=== PATIENT | male | born 1935 | race Caucasian/White ===

== ENCOUNTER 2021-10-26 09:23 | Observation (INO) ==
--- NOTE | 2021-10-26 09:38 | Emergency Department Note ---
Impression & Plan Acute GI bleeding, Anemia, Elevated troponin, DOLORES (acute kidney injury) ED Provider Note NAME: KULDIP ANSARI AGE: 86 SEX: M : 1935 ARRIVES VIA: Walk-In INFORMANT: Patient ED PROVIDER(S): Mik Muñoz DO CHIEF COMPLAINT: low HGB HPI: Patient is an 86-year-old male with past medical history of hypertension, CKD, low iron that presents to the ER for low hemoglobin referred by his PCP. He had an iron infusion last week. He has been feeling weak and rundown for the past several days. He denies any headache or change in vision. Denies any belly pain, nausea, vomiting, or diarrhea. No dysuria, urgency, or frequency. No other exacerbating or remitting factors. ROS: See above HPI for pertinent positives & negatives. A total of 10 systems reviewed and were otherwise negative. PAST MEDICAL HISTORY:See Below PAST SURGICAL HISTORY:See Below FAMILY HISTORY:See Below SOCIAL HISTORY:See Below HOME MEDICATIONS:See Below ALLERGIES:See Below VITALS:See Below PHYSICAL EXAMINATION: GENERAL: Sitting up in bed, alert, well appearing, well nourished, no distress, non-toxic EYE EXAM: normal conjunctiva. OROPHARYNX: no exudate, no erythema, lips, buccal mucosa, and tongue normal and mucous membranes are moist NECK: supple, no nuchal rigidity, no adenopathy, non-tender LUNGS: Clear to auscultation. Normal chest wall mechanics HEART: no murmurs, S1 normal and S2 normal ABDOMEN: abdomen soft, non-tender, normo-active bowel sounds, no masses, no r ebound or guarding. RECTAL: hem + dark stool UPPER EXTREMITIES: upper extremities are grossly normal. LOWER EXTREMITIES: No pitting edema. NEURO EXAM: Normal sensorium, cranial nerves II-XII grossly intact, normal speech, no gross weakness of arms, no gross weakness of legs. MEDICAL DECISION MAKING: Patient is an 86-year-old male who presents the ER for dark tarry stools. Rectal heme positive dark stool. Hemoglobin at 6 down from baseline of 10 last week. BMP with a significantly elevated BUN. Creatinine at 5.5 up from a baseline of what appears to be 4.3-4.5. LFTs bilirubin was unremarkable. Troponin was elevated. Rectal heme positive performed by myself at bedside. No belly pain. Consented at bedside for blood, typed and crossed and ordered 2 un its PRBCs while in the ER. No blood thinners at this time was admitted to the hospital for further work-up. Discussed with Graciela lehman for further evaluation. Triage Nursing notes reviewed. Limited review of prior medical records performed Vital Signs: reviewed and remarkable for no significant abnormalities Differential diagnosis: Infection, dehydration, metabolic abnormality, hypo/hyperglycemia, electrolyte disturbance, anemia, hypoxia, cardiac sources, intracerebral event, toxicologic, neurologic, as well as other pathologies. ER treatment provided: See below Diagnostics interpreted by me: ECG: Sinus rhythm rate of 70 Left axis No PVCs QTC 464 Cardiac Monitoring: An order was placed for continuous cardiac monitoring. The monitor shows a rate of 72 with sinus rhythm. Laboratory studies: As stated above and show below. Imaging studies: See below Consultation(s): Discussed with Graciela lehman for further evaluation Procedures: none Critical Care: I have personally spent 33 minutes of critical care time in the direct management of this patient. This includes bedside care, interpretation of diag nostic studies, and testing, discussion with consultants, patient, and family members, and other required patient management activities. This 33 minutes is in excess of all separately billable procedures. Past Med/Surg History Medical History BPH (benign prostatic hyperplasia) Chronic anemia Chronic diastolic heart failure due to valvular disease CKD (chronic kidney disease), stage V HTN (hypertension) Moderate aortic valve regurgitation Severe aortic valve stenosis Surgical History H/O sinus surgery History of carpal tunnel surgery History of cataract surgery History of cholecystectomy History of nasal surgery History of tonsillectomy and adenoidectomy Family History Brother Heart disorder Social History (Updated 10/26/21 @ 12:52 by DARLENE Majano) Smoking Status: Former smoker Hx Alcohol Use: No Preferred Language: Yakut Feels Safe at Home: Yes Allergies Allergies Allergy/AdvReac Type Severity Reaction Status Date / Time No Known Allergies Allergy Unknown Verified 06/02/06 16:47 Home Meds Home Medications Medication Instructions Recorded Confirmed acetaminophen 500 mg capsule 500 mg PO TID PRN Pain 10/26/21 10/26/21 alprazolam 1 mg tablet 1 mg PO BID 10/26/21 10/26/21 amlodipine 10 mg tablet (Norvasc) 10 mg PO DAILY 10/26/21 10/26/21 ascorbic acid (vitamin C) 1,000 mg 1 g PO DAILY 10/26/21 10/26/21 tablet (Vitamin C) aspirin 81 mg tablet,delayed 81 mg PO DAILY 10/26/21 10/26/21 release buspirone 15 mg tablet 22.5 mg PO BID 10/26/21 10/26/21 cholecalciferol (vitamin D3) 25 25 mcg PO DAILY 10/26/21 10/26/21 mcg (1,000 unit) capsule cyanocobalamin (vitamin B-12) 1,000 mcg PO DAILY 10/26/21 10/26/21 1,000 mcg tablet famotidine 10 mg tablet 10 mg PO DAILY 10/26/21 10/26/21 fluticasone propionate 50 2 spray intranasal DAILY 10/26/21 10/26/21 mcg/actuation nasal spray,suspension furosemide 80 mg tablet 80 mg PO QDL 10/26/21 10/26/21 furosemide 80 mg tablet (Lasix) 160 mg PO DAILY 10/26/21 10/26/21 hydralazine 50 mg tablet 50 mg PO QID 10/26/21 10/26/21 metoprolol succinate 50 mg 75 mg PO DAILY 10/26/21 10/26/21 tablet,extended release 24 hr mirtazapine 45 mg tablet 45 mg PO HS 10/26/21 10/26/21 multivitamin 1 tab PO DAILY 10/26/21 10/26/21 potassium chloride 10 mEq 20 meq PO DAILY 10/26/21 10/26/21 tablet,extended release psyllium husk 3.4 gram/5.4 gram 1 tbsp PO BID 10/26/21 10/26/21 oral powder (Metamucil) sennosides 8.6 mg-docusate sodium 1 tab-cap PO DAILY 10/26/21 10/26/21 50 mg tablet (Senna Plus) terazosin 10 mg capsule 10 mg PO HS 10/26/21 10/26/21 Results & Data (ED) Vital Signs Vital Signs - 24 hr 10/26/21 09:26 10/26/21 11:24 10/26/21 11:24 Temperature 36.6 C Temperature Source Temporal Artery Scan Pulse Rate 76 Pulse Rate [Apical] 68 Pulse Rhythm Regular Pulse Strength Normal Respiratory Rate 20 18 Respiratory Effort / Characteristics Non-Labored Spontaneous Respiratory Depth Normal Respiratory Pattern Regular Blood Pressure 140/64 Blood Pressure [Right Arm] 159/66 H Blood Pressure Mean 89 Blood Pressure Mean [Right Arm] 97 Blood Pressure Position Sitting Pulse Oximetry 97 96 96 Oxygen Delivery Method Room Air Room Air Room Air Sepsis Recent Fever Within 48 Hours No Sepsis New/Unexplained Change in Mental Status No Sepsis Action Taken by Nursing No Action Required 10/26/21 12:33 Temperature Temperature Source Pulse Rate Pulse Rate [Apical] 70 Pulse Rhythm Pulse Strength Respiratory Rate 18 Respiratory Effort / Characteristics Respiratory Depth Respiratory Pattern Blood Pressure Blood Pressure [Right Arm] 159/70 H Blood Pressure Mean Blood Pressure Mean [Right Arm] 99 Blood Pressure Position Pulse Oximetry 96 Oxygen Delivery Method Room Air Sepsis Recent Fever Within 48 Hours Sepsis New/Unexplained Change in Mental Status Sepsis Action Taken by Nursing Laboratory Data Result diagrams: 10/26/21 09:50 10/26/21 09:50 Lab Results 10/26/21 10/26/21 10/26/21 Range/Units 09:44 09:50 09:50 WBC 10.40 (4.8-10.8) K/ul RBC 1.98 L (4.63-6.08) M/uL Hgb 6.1 L* (14.0-18.0) g/dl Hct 20.4 L* (40.1-51.0) % MCV 103.0 H (80.0-100.0) fL MCH 30.8 (25.0-34.0) pg MCHC 29.9 L (32.0-36.0) g/dL RDW Std Deviation 73.7 H (36.4-46.3) fL RDW Coeff of Augustina 19.9 H (11.5-14.5) % Plt Count 252 (130-400) K/uL MPV 10.7 (9.4-12.4) fL Immature Gran % (Auto) 0.9 % Neut % (Auto) 72.9 % Lymph % (Auto) 15.2 % [place] % (Auto) 8.7 % Eos % (Auto) 1.8 % Baso % (Auto) 0.5 % Neut # (Auto) 7.59 H (1.4-6.5) K/uL Lymph # (Auto) 1.58 (1.2-3.4) K/uL [place] # (Auto) 0.90 H (0.24-0.82) K/uL Eos # (Auto) 0.19 (0-0.50) K/uL Baso # (Auto) 0.05 (0-0.2) K/uL Immature Gran # (Auto) 0.09 H (0.00-0.02) K/uL Polychromasia 1+ Basophilic Stippling 1+ PT 10.0 (9.0-12.0) Seconds INR 0.9 (0.9-1.1) APTT 22.8 (21.0-31.0) Seconds PTT Ratio 0.8 Sodium (136-145) mmol/L Potassium (3.5-5.1) mmol/L Chloride (98-107) mmol/L Carbon Dioxide (21-32) mmol/L Anion Gap (3-11) BUN (6-23) mg/dl Creatinine (0.6-1.4) mg/dl Est Cr Clr Drug Dosing ml/min Est GFR ( Amer) ml/min Est GFR (Non-Af Amer) ml/min BUN/Creatinine Ratio (10-20) Glucose (70-99(Fasting)) mg/dl Calcium (8.5-10.1) mg/dl Total Bilirubin (0.2-1.0) mg/dl AST (13-39) U/L ALT (7-52) U/L Alkaline Phosphatase (34-104) U/L Troponin I High Sens (0-20) pg/ml Total Protein (6.0-8.3) gm/dl Albumin (3.4-5.0) gm/dl Globulin (2.5-4.0) gm/dl Albumin/Globulin Ratio (0.9-2) POC Stool Occult Blood (Negative) Blood Type O Positive Blood Type Recheck Antibody Screen NEGATIVE Crossmatch See Detail 10/26/21 10/26/21 10/26/21 Range/Units 09:50 11:24 12:07 WBC (4.8-10.8) K/ul RBC (4.63-6.08) M/uL Hgb (14.0-18.0) g/dl Hct (40.1-51.0) % MCV (80.0-100.0) fL MCH (25.0-34.0) pg MCHC (32.0-36.0) g/dL RDW Std Deviation (36.4-46.3) fL RDW Coeff of Augustina (11.5-14.5) % Plt Count (130-400) K/uL MPV (9.4-12.4) fL Immature Gran % (Auto) % Neut % (Auto) % Lymph % (Auto) % [place] % (Auto) % Eos % (Auto) % Baso % (Auto) % Neut # (Auto) (1.4-6.5) K/uL Lymph # (Auto) (1.2-3.4) K/uL [place] # (Auto) (0.24-0.82) K/uL Eos # (Auto) (0-0.50) K/uL Baso # (Auto) (0-0.2) K/uL Immature Gran # (Auto) (0.00-0.02) K/uL Polychromasia Basophilic Stippling PT (9.0-12.0) Seconds INR (0.9-1.1) APTT (21.0-31.0) Seconds PTT Ratio Sodium 137 (136-145) mmol/L Potassium 3.9 (3.5-5.1) mmol/L Chloride 106 (98-107) mmol/L Carbon Dioxide 20 L (21-32) mmol/L Anion Gap 11 (3-11) BUN 104 H (6-23) mg/dl Creatinine 5.49 H* (0.6-1.4) mg/dl Est Cr Clr Drug Dosing 9.7 ml/min Est GFR ( Amer) 9.9 ml/min Est GFR (Non-Af Amer) 8.5 ml/min BUN/Creatinine Ratio 18.9 (10-20) Glucose 111 H (70-99(Fasting)) mg/dl Calcium 8.5 (8.5-10.1) mg/dl Total Bilirubin 0.2 (0.2-1.0) mg/dl AST 20 (13-39) U/L ALT 19 (7-52) U/L Alkaline Phosphatase 47 (34-104) U/L Troponin I High Sens 89.8 H* (0-20) pg/ml Total Protein 5.7 L (6.0-8.3) gm/dl Albumin 3.4 (3.4-5.0) gm/dl Globulin 2.3 L (2.5-4.0) gm/dl Albumin/Globulin Ratio 1.5 (0.9-2) POC Stool Occult Blood Positive A (Negative) Blood Type Blood Type Recheck O Positive Antibody Screen Crossmatch Administered Medications Discontinued Medications Pantoprazole Sodium 80 mg/ (Dextrose) 120 mls @ 400 mls/hr IV NOW ONE Stop: 10/26/21 12:43 Last Admin: 10/26/21 12:58 Dose: 400 mls/hr Documented By: AKL Discharge Plan Visit Data Chief Complaint: Abnormal Labs/Diagnostic Testing Stated Complaint: ABNORMAL LABS ED Provider: Mik Muñoz Discharge Problem: Acute GI bleeding, Anemia, Elevated troponin, DOLORES (acute kidney injury) Forms Stand Alone Forms: My [facility] Prescriptions Prescriptions: No Action alprazolam 1 mg tablet 1 mg PO BID acetaminophen 500 mg Capsule 500 mg PO TID PRN (Reason: Pain) amlodipine [Norvasc] 10 mg Tablet 10 mg PO DAILY buspirone 15 mg Tablet 22.5 mg PO BID famotidine 10 mg Tablet 10 mg PO DAILY fluticasone propionate [Flonase] 50 mcg/actuation [place],Suspension 2 spray INTRANASAL DAILY Rx Instructions: administer into each nostril furosemide [Lasix] 80 mg Tablet 160 mg PO DAILY hydralazine [Apresoline] 50 mg Tablet 50 mg PO QID metoprolol succinate 50 mg tablet extended release 24 hr 75 mg PO DAILY Metamucil 3.4 gram/5.4 gram Powder 1 tbsp PO BID Rx Instructions: mix into at least 8 oz of water or juice before administering aspirin [Aspirin Low-Strength] 81 mg Tablet,Delayed Release (Dr/Ec) 81 mg PO DAILY cholecalciferol (vitamin D3) 25 mcg (1,000 unit) Capsule 25 mcg PO DAILY multivitamin Tablet 1 tab PO DAILY ascorbic acid (vitamin C) [Vitamin C] 1,000 mg Tablet 1 g PO DAILY sennosides-docusate sodium [Senna Plus] 8.6-50 mg Tablet 1 tab-cap PO DAILY cyanocobalamin (vitamin B-12) 1,000 mcg Tablet 1,000 mcg PO DAILY potassium chloride 10 mEq Tablet Extended Release 20 meq PO DAILY furosemide 80 mg tablet 80 mg PO QDL mirtazapine 45 mg Tablet 45 mg PO HS terazosin 10 mg capsule 10 mg PO HS Referrals Referrals: PCP,NO [Physician] -
[2021-10-26 10:13] LABS: INR 0.9 (0.9-1.1); Partial Thromboplastin Ratio 0.8; Partial Thromboplastin Time 22.8 Seconds (21.0-31.0)
[2021-10-26 10:19] LABS: Hematocrit (blood only) 20.4 % (40.1-51.0); Hemoglobin 6.1 g/dl (14.0-18.0); Mean Corpuscular Hemoglobin 30.8 pg (25.0-34.0); Mean Corpuscular Hgb Conc 29.9 g/dL (32.0-36.0); Mean Platelet Volume 10.7 fL (9.4-12.4); Platelet Count 252 K/uL (130-400); RDW Coefficient of Variation 19.9 % (11.5-14.5); RDW Standard Deviation 73.7 fL (36.4-46.3); Red Blood Count 1.98 M/uL (4.63-6.08)
[2021-10-26 10:29] LABS: Basophilic Stippling 1+; Basophils # (auto) 0.05 K/uL (0-0.2); Basophils % (auto) 0.5 %; Eosinophils # (auto) 0.19 K/uL (0-0.50); Eosinophils % (auto) 1.8 %; Immature Granulocytes # (auto) 0.09 K/uL (0.00-0.02); Immature Granulocytes % (auto) 0.9 %; Lymphocytes # (auto) 1.58 K/uL (1.2-3.4); Lymphocytes % (auto) 15.2 %; Monocytes % (auto) 8.7 %; Neutrophils # (auto) 7.59 K/uL (1.4-6.5); Neutrophils % (auto) 72.9 %; Polychromasia 1+
[2021-10-26 11:13] LABS: Albumin Globulin Ratio 1.5 (0.9-2); Albumin Level 3.4 gm/dl (3.4-5.0); BUN Creatinine Ratio 18.9 (10-20); Bilirubin,Total 0.2 mg/dl (0.2-1.0); Calcium 8.5 mg/dl (8.5-10.1); Creatinine Clr Calc Pharmacy 9.7 ml/min; Est GFR (African American) 9.9 ml/min; Est GFR (Non-African American) 8.5 ml/min; Globulin 2.3 gm/dl (2.5-4.0); Potassium 3.9 mmol/L (3.5-5.1); Total Protein 5.7 gm/dl (6.0-8.3); Troponin I High Sensitivity 89.8 pg/ml (0-20)
[2021-10-26] MEDS ORDERED: SODIUM CHLORIDE 0.9% 250 ML IV PRN ×2 (11:34→11:43)
[2021-10-26] MEDS ORDERED: PANTOprazole 80 MG in DEXTROSE 5% 100 ML IV ONE ×2 (12:26→13:30)
[2021-10-26] MEDS ORDERED: PANTOPRAZOLE BOLUS/DRIP 1 EACH IV STA ×2 (12:26→13:30)
--- NOTE | 2021-10-26 12:46 | Gastrointestinal Consultation ---
Date of Consultation October 26, 2021 Assessment & Plan (1) Acute on chronic anemia: 86 year old male with history of HTN, CKD, WENDY, aortica stenosis, skin CA, anemia on OP IV iron and procrit admitted through the ED for acute on chronic anemia, HGB 6.1, heme + in the setting of dark stools x 4-6 weeks Can continue IV PPI bolus and drip Clear liquids today Trend H&H Transfuse PRN Monitor and document output Start Golytely prep NPO midnight EGD/Colonoscopy Thank you for allowing us to participate in the care of this patient. Please call with any acute changes, questions or concerns. Please see addendum below with additional recommendation from my supervising physician. Supervising Physician Co-Signing Physician Notes I performed a history and physical examination of the patient today, including specifically on physical exam - soft abdomen. I have discussed the patient's management with the advanced practitioner. Please refer to the nurse practitioner's note for the documented findings and plan of care. EGD/colonoscopy tomorrow. History of Present Illness Reason for Consultation: dark stools Requesting Physician: Graciela Kolb Attending Physician: Graciela Kolb History of Present Illness 86 year old male with HTN, CKD, WENDY, ANSHU on iron infusions, anemia of CKD on procrit skin CA presenting to the ED for eval of abnormal labs, HGB 5.7 from 10. GI asked to evaluate for dark stools, anemia. Of note, he was seen as an OP for anemia in 05/2021. At that time, he denies black/bloody stools It was recommended he have EGD/Colonoscopy for eval of ANSHU but he was not interested in testing at that time. Family at bedside who aids in history. Notes that about 4 weeks ago he developed loose, black stools. Suggests about 1 week after this he started to experience fatigue, weakness and activity intolerance. Notes that he has had some GI upset with this. No vomiting. No GERD. No dysphagia. In the ED, he was hemodynamically stable w HGB 6.1, Hct 20, BUN 104 and [facility] W[employer] 5. No AC No NSAIDs No ETOH No tobacco. Stool heme + No recent ABD imaging EGD/Colonoscopy: 2004, hand written copies not legible Family history of GI malignancy: none Allergies Allergy/AdvReac Type Severity Reaction Status Date / Time No Known Allergies Allergy Unknown Verified 06/02/06 16:47 Home Medications Medication Instructions Recorded Confirmed Type acetaminophen 500 mg capsule 500 mg PO TID PRN Pain 10/26/21 10/26/21 History alprazolam 1 mg tablet 1 mg PO BID 10/26/21 10/26/21 History amlodipine 10 mg tablet (Norvasc) 10 mg PO DAILY 10/26/21 10/26/21 History ascorbic acid (vitamin C) 1,000 mg 1 g PO DAILY 10/26/21 10/26/21 History tablet (Vitamin C) aspirin 81 mg tablet,delayed 81 mg PO DAILY 10/26/21 10/26/21 History release buspirone 15 mg tablet 22.5 mg PO BID 10/26/21 10/26/21 History cholecalciferol (vitamin D3) 25 25 mcg PO DAILY 10/26/21 10/26/21 History mcg (1,000 unit) capsule cyanocobalamin (vitamin B-12) 1,000 mcg PO DAILY 10/26/21 10/26/21 History 1,000 mcg tablet famotidine 10 mg tablet 10 mg PO DAILY 10/26/21 10/26/21 History fluticasone propionate 50 2 spray intranasal DAILY 10/26/21 10/26/21 History mcg/actuation nasal spray,suspension furosemide 80 mg tablet 80 mg PO QDL 10/26/21 10/26/21 History furosemide 80 mg tablet (Lasix) 160 mg PO DAILY 10/26/21 10/26/21 History hydralazine 50 mg tablet 50 mg PO QID 10/26/21 10/26/21 History metoprolol succinate 50 mg 75 mg PO DAILY 10/26/21 10/26/21 History tablet,extended release 24 hr mirtazapine 45 mg tablet 45 mg PO HS 10/26/21 10/26/21 History multivitamin 1 tab PO DAILY 10/26/21 10/26/21 History potassium chloride 10 mEq 20 meq PO DAILY 10/26/21 10/26/21 History tablet,extended release psyllium husk 3.4 gram/5.4 gram 1 tbsp PO BID 10/26/21 10/26/21 History oral powder (Metamucil) sennosides 8.6 mg-docusate sodium 1 tab-cap PO DAILY 10/26/21 10/26/21 History 50 mg tablet (Senna Plus) terazosin 10 mg capsule 10 mg PO HS 10/26/21 10/26/21 History Patient History Medical History BPH (benign prostatic hyperplasia) Chronic anemia Chronic diastolic heart failure due to valvular disease CKD (chronic kidney disease), stage V HTN (hypertension) Moderate aortic valve regurgitation Severe aortic valve stenosis Surgical History H/O sinus surgery History of carpal tunnel surgery History of cataract surgery History of cholecystectomy History of nasal surgery History of tonsillectomy and adenoidectomy Family History Brother Heart disorder Social History (Updated 10/26/21 @ 12:52 by DARLENE Majano) Smoking Status: Former smoker Hx Alcohol Use: No Preferred Language: Israeli Feels Safe at Home: Yes Review of Systems Review of Systems: All systems reviewed & are unremarkable except as noted in HPI & below Physical Exam Constitutional: WD/WN, vitals as above Respiratory: normal respiratory effort, lungs clear to auscultation Cardiovascular: RRR, no murmur, no edema Gastrointestinal (Abdomen): normal bowel sounds, soft, nontender, no hepatosplenomegaly Skin: no rashes, warm and dry Results & Data ([facility]) Vital Signs (Past 12 Hours) Vital Signs Temp Pulse Pulse Resp BP BP Pulse Ox 10/26/21 12:33 70 18 159/70 H 96 10/26/21 11:24 96 10/26/21 11:24 68 18 159/66 H 96 10/26/21 09:26 36.6 C 76 20 140/64 97 O2 Del Method 10/26/21 12:33 Room Air 10/26/21 11:24 Room Air 10/26/21 11:24 Room Air 10/26/21 09:26 Room Air Laboratory Results 10/26/21 10/26/21 10/26/21 Range/Units 12:07 11:24 09:50 WBC (4.8-10.8) K/ul RBC (4.63-6.08) M/uL Hgb (14.0-18.0) g/dl Hct (40.1-51.0) % MCV (80.0-100.0) fL MCH (25.0-34.0) pg MCHC (32.0-36.0) g/dL RDW Std Deviation (36.4-46.3) fL RDW Coeff of Augustina (11.5-14.5) % Plt Count (130-400) K/uL MPV (9.4-12.4) fL Immature Gran % (Auto) % Neut % (Auto) % Lymph % (Auto) % [place] % (Auto) % Eos % (Auto) % Baso % (Auto) % Neut # (Auto) (1.4-6.5) K/uL Lymph # (Auto) (1.2-3.4) K/uL [place] # (Auto) (0.24-0.82) K/uL Eos # (Auto) (0-0.50) K/uL Baso # (Auto) (0-0.2) K/uL Immature Gran # (Auto) (0.00-0.02) K/uL Polychromasia Basophilic Stippling PT (9.0-12.0) Seconds INR (0.9-1.1) APTT (21.0-31.0) Seconds PTT Ratio Sodium 137 (136-145) mmol/L Potassium 3.9 (3.5-5.1) mmol/L Chloride 106 (98-107) mmol/L Carbon Dioxide 20 L (21-32) mmol/L Anion Gap 11 (3-11) BUN 104 H (6-23) mg/dl Creatinine 5.49 H* (0.6-1.4) mg/dl Est Cr Clr Drug Dosing 9.7 ml/min Est GFR ( Amer) 9.9 ml/min Est GFR (Non-Af Amer) 8.5 ml/min BUN/Creatinine Ratio 18.9 (10-20) Glucose 111 H (70-99(Fasting)) mg/dl Calcium 8.5 (8.5-10.1) mg/dl Total Bilirubin 0.2 (0.2-1.0) mg/dl AST 20 (13-39) U/L ALT 19 (7-52) U/L Alkaline Phosphatase 47 (34-104) U/L Troponin I High Sens 89.8 H* (0-20) pg/ml Total Protein 5.7 L (6.0-8.3) gm/dl Albumin 3.4 (3.4-5.0) gm/dl Globulin 2.3 L (2.5-4.0) gm/dl Albumin/Globulin Ratio 1.5 (0.9-2) POC Stool Occult Blood Positive A (Negative) Blood Type Blood Type Recheck O Positive Antibody Screen Crossmatch 10/26/21 10/26/21 10/26/21 Range/Units 09:50 09:50 09:44 WBC 10.40 (4.8-10.8) K/ul RBC 1.98 L (4.63-6.08) M/uL Hgb 6.1 L* (14.0-18.0) g/dl Hct 20.4 L* (40.1-51.0) % MCV 103.0 H (80.0-100.0) fL MCH 30.8 (25.0-34.0) pg MCHC 29.9 L (32.0-36.0) g/dL RDW Std Deviation 73.7 H (36.4-46.3) fL RDW Coeff of Augustina 19.9 H (11.5-14.5) % Plt Count 252 (130-400) K/uL MPV 10.7 (9.4-12.4) fL Immature Gran % (Auto) 0.9 % Neut % (Auto) 72.9 % Lymph % (Auto) 15.2 % [place] % (Auto) 8.7 % Eos % (Auto) 1.8 % Baso % (Auto) 0.5 % Neut # (Auto) 7.59 H (1.4-6.5) K/uL Lymph # (Auto) 1.58 (1.2-3.4) K/uL [place] # (Auto) 0.90 H (0.24-0.82) K/uL Eos # (Auto) 0.19 (0-0.50) K/uL Baso # (Auto) 0.05 (0-0.2) K/uL Immature Gran # (Auto) 0.09 H (0.00-0.02) K/uL Polychromasia 1+ Basophilic Stippling 1+ PT 10.0 (9.0-12.0) Seconds INR 0.9 (0.9-1.1) APTT 22.8 (21.0-31.0) Seconds PTT Ratio 0.8 Sodium (136-145) mmol/L Potassium (3.5-5.1) mmol/L Chloride (98-107) mmol/L Carbon Dioxide (21-32) mmol/L Anion Gap (3-11) BUN (6-23) mg/dl Creatinine (0.6-1.4) mg/dl Est Cr Clr Drug Dosing ml/min Est GFR ( Amer) ml/min Est GFR (Non-Af Amer) ml/min BUN/Creatinine Ratio (10-20) Glucose (70-99(Fasting)) mg/dl Calcium (8.5-10.1) mg/dl Total Bilirubin (0.2-1.0) mg/dl AST (13-39) U/L ALT (7-52) U/L Alkaline Phosphatase (34-104) U/L Troponin I High Sens (0-20) pg/ml Total Protein (6.0-8.3) gm/dl Albumin (3.4-5.0) gm/dl Globulin (2.5-4.0) gm/dl Albumin/Globulin Ratio (0.9-2) POC Stool Occult Blood (Negative) Blood Type O Positive Blood Type Recheck Antibody Screen NEGATIVE Crossmatch See Detail
--- NOTE | 2021-10-26 13:00 | History & Physical Report ---
Date of Service October 26, 2021 Assessment & Plan (1) Acute on chronic anemia: (2) Melena: Plan: Admit to [facility] with telemetry Patient presenting by referral of outpatient clinic after outpatient labs show Hgb 5.9. History of chronic anemia on iron infusions and Procrit injections. Baseline Hgb ~ 10.0. Patient reports dark stools x 1 week. Remote history of EGD and colonoscopy in 2004. Records unavailable. Patient currently hemodynamically stable. 2 unit PRBC -transfuse over 4 hours due to underlying CKD stage V and severe aortic stenosis. Lasix 40 mg IV after each unit. IV Protonix bolus and drip Clear liquids, n.p.o. for midnight GI consult, case discussed with DARLENE Ramírez (3) CKD (chronic kidney disease), stage V: Plan: Recent baseline creatinine 4.5-5.0 Creatinine 5.49 today Patient has not been interested in dialysis in the past Nephrology consult (4) Severe aortic valve stenosis: (5) Moderate aortic valve regurgitation: (6) Chronic diastolic heart failure due to valvular disease: Plan: Typically managed with Lasix 240 mg total daily Diuresis with PRBC as above Hold home p.o. Lasix for now, reassess in a.m. (7) HTN (hypertension): Plan: BP controlled, continue amlodipine, hydralazine, metoprolol (8) Anxiety and depression: Plan: Stable, continue home meds (9) DVT prophylaxis: Plan: SCDs due to anemia/GI bleeding History of Present Illness Chief Complaint: Referred for evaluation of anemia Primary Care Provider: Roscoe Sagastume DO 86-year-old male with PMH CKD stage V, chronic anemia, aortic valve stenosis a nd regurgitation, HTN, chronic diastolic CHF, BPH, anxiety, depression, and other problems to below who was referred to the ED for evaluation of anemia. Patient with history of chronic anemia currently receiving iron infusions and Procrit injections. Baseline Hgb ~ 10.0. Presented today for Procrit injection and had labs that showed Hgb 5.9. Patient was referred to the ED for further evaluation. Patient reports dark stools over the past 1 week. Also reports increased generalized weakness, fatigue, exertional shortness of breath. Denies abdominal pain, vomiting, bright red bleeding per rectum. Denies heavy NSAID use. No other recent illnesses, fevers, chills. Patient has chronic lower extremity edema which is unchanged from baseline. Denies chest pain and palpitations. No lightheadedness, dizziness, diaphoresis, syncopal events. Denies urinary symptoms. In the ED, labs show Hgb 6.1. Hemoccult stool is positive. Patient was ordered 2 unit PRBC. Allergies Allergy/AdvReac Type Severity Reaction Status Date / Time No Known Allergies Allergy Unknown Verified 06/02/06 16:47 Home Medications Medication Instructions Recorded Confirmed Type acetaminophen 500 mg capsule 500 mg PO TID PRN Pain 10/26/21 10/26/21 History alprazolam 1 mg tablet 1 mg PO BID 10/26/21 10/26/21 History amlodipine 10 mg tablet (Norvasc) 10 mg PO DAILY 10/26/21 10/26/21 History ascorbic acid (vitamin C) 1,000 mg 1 g PO DAILY 10/26/21 10/26/21 History tablet (Vitamin C) aspirin 81 mg tablet,delayed 81 mg PO DAILY 10/26/21 10/26/21 History release buspirone 15 mg tablet 22.5 mg PO BID 10/26/21 10/26/21 History cholecalciferol (vitamin D3) 25 25 mcg PO DAILY 10/26/21 10/26/21 History mcg (1,000 unit) capsule cyanocobalamin (vitamin B-12) 1,000 mcg PO DAILY 10/26/21 10/26/21 History 1,000 mcg tablet famotidine 10 mg tablet 10 mg PO DAILY 10/26/21 10/26/21 History fluticasone propionate 50 2 spray intranasal DAILY 10/26/21 10/26/21 History mcg/actuation nasal spray,suspension furosemide 80 mg tablet 80 mg PO QDL 10/26/21 10/26/21 History furosemide 80 mg tablet (Lasix) 160 mg PO DAILY 10/26/21 10/26/21 History hydralazine 50 mg tablet 50 mg PO QID 10/26/21 10/26/21 History metoprolol succinate 50 mg 75 mg PO DAILY 10/26/21 10/26/21 History tablet,extended release 24 hr mirtazapine 45 mg tablet 45 mg PO HS 10/26/21 10/26/21 History multivitamin 1 tab PO DAILY 10/26/21 10/26/21 History potassium chloride 10 mEq 20 meq PO DAILY 10/26/21 10/26/21 History tablet,extended release psyllium husk 3.4 gram/5.4 gram 1 tbsp PO BID 10/26/21 10/26/21 History oral powder (Metamucil) sennosides 8.6 mg-docusate sodium 1 tab-cap PO DAILY 10/26/21 10/26/21 History 50 mg tablet (Senna Plus) terazosin 10 mg capsule 10 mg PO HS 10/26/21 10/26/21 History Past Med/Surg History Medical History BPH (benign prostatic hyperplasia) Chronic anemia Chronic diastolic heart failure due to valvular disease CKD (chronic kidney disease), stage V HTN (hypertension) Moderate aortic valve regurgitation Severe aortic valve stenosis Surgical History H/O sinus surgery History of carpal tunnel surgery History of cataract surgery History of cholecystectomy History of nasal surgery History of tonsillectomy and adenoidectomy Family History Brother Heart disorder Social History (Updated 10/26/21 @ 12:52 by DARLENE Majano) Smoking Status: Former smoker Hx Alcohol Use: No Preferred Language: Khmer Feels Safe at Home: Yes Review of Systems Review of Systems: ROS per HPI, all other systems reviewed and negative Physical Exam Physical Exam: please refer to Dr. Villatoro's addendum for physical exam Results & Data Results & Data ([facility]) Vital Signs (Past 12 Hours) Vital Signs Temp Pulse Pulse Resp BP BP Pulse Ox 10/26/21 12:33 70 18 159/70 H 96 10/26/21 11:24 96 10/26/21 11:24 68 18 159/66 H 96 10/26/21 09:26 36.6 C 76 20 140/64 97 O2 Del Method 10/26/21 12:33 Room Air 10/26/21 11:24 Room Air 10/26/21 11:24 Room Air 10/26/21 09:26 Room Air Laboratory Results Short CBC 10/26/21 Range/Units 09:50 WBC 10.40 (4.8-10.8) K/ul Hgb 6.1 L* (14.0-18.0) g/dl Hct 20.4 L* (40.1-51.0) % Plt Count 252 (130-400) K/uL BMP 10/26/21 09:50 Sodium 137 Potassium 3.9 Chloride 106 Carbon Dioxide 20 L BUN 104 H Creatinine 5.49 H* Glucose 111 H Calcium 8.5 Liver Function 10/26/21 Range/Units 09:50 Total Bilirubin 0.2 (0.2-1.0) mg/dl AST 20 (13-39) U/L ALT 19 (7-52) U/L Alkaline Phosphatase 47 (34-104) U/L Albumin 3.4 (3.4-5.0) gm/dl Code Status & VTE Plan Code Status Patient is a DNR as per my discussion with him. VTE Prophylaxis Plan VTE Prophylaxis will be ordered: Yes Supervising Physician Co-Signing Physician Notes Patient is an 86-year-old male with history of CKD stage V, anemia of chronic disease, chronic diastolic heart failure, aortic valve stenosis and other medical problems presents with history of melena since ~2 weeks duration. Patient was evaluated by outpatient provider who noticed to have very low hemoglobin and was sent to ED for further evaluation. Patient takes aspirin 81 mg daily but denies any NSAIDs use. He is on Procrit injections and also gets iron transfusions. He reports generalized weakness, exertional shortness of breath, but denies any bright red blood, abdominal pain, chest pain, dizziness. Please review HPI for complete details of presentation. Fecal occult blood test in ED was positive. Blood work showed hemoglobin 6.1, hematocrit 20.4, MCV 103, RDW 73.7, platelets 252, INR 0.9, sodium 137, potassium 3.9, chloride 106, bicarbonate 20, BUN 104, creatinine 5.49, glucose 111, troponin 89.8. EKG reviewed. Physical Exam: Vitals signs as noted above General Appearance:Moderately built and nourished, no apparent distress, Elderly Head: normocephalic, Atraumatic Eyes: normal inspection, EOMI Neck: supple, Trachea midline Respiratory/Chest: Normal breath sounds, CTA, No accessory muscle use Cardiovascular: S1, S2, + murmur Abdomen/GI:Soft, Non tender, Bowel sounds present, +Protuberant, no guarding or rigidity Extremities/Musculoskeletal:normal inspection, 2-3 + B/L edema Neurologic/Psych:AAOX3, grossly no focal neurological deficits Skin: normal color, warm Symptomatic anemia Acute upper GI bleed, Melena CKD stage V H/O Iron deficiency, Anemia of CKD Elevated troponin secondary to CKD Positive FOBT Hold aspirin Started on Protonix drip Monitor H&H Transfuse PRBC Monitor volume status closely IV Lasix after blood transfusion GI consulted Nephrology consulted as well Avoid NSAIDs N.p.o. after midnight for possible EGD/colonoscopy Avoid Nephrotoxic agents Trend Troponin Fall precautions PT OT when appropriate SCDs for DVT Px I personally reviewed the record. Patient is interviewed and examined at bedside . Patient's care is coordinated with Graciela Kolb SEAMAN. Please refer to the documentation above for details of patient's presentation and for discussion of other issues.
[2021-10-26] MEDS: PANTOprazole 40 MG in DEXTROSE 5% 100 ML IV SCH ×3 (13:45→22:51)
[2021-10-26] MEDS ORDERED: PANTOprazole 40 MG in DEXTROSE 5% 100 ML IV SCH (13:45)
--- NOTE | 2021-10-26 13:59 | Electrocardiogram Report ---
Test Reason : Blood Pressure : / mmHG Vent. Rate : 070 BPM Atrial Rate : 070 BPM P-R Int : 208 ms QRS Dur : 106 ms QT Int : 430 ms P-R-T Axes : 041 010 103 degrees QTc Int : 464 ms Sinus rhythm with Premature atrial complexes Nonspecific ST and T wave abnormality Abnormal ECG When compared with ECG of 07-JUN-2006 07:25, Premature atrial complexes are now Present ST no longer elevated in Inferior leads T wave inversion no longer evident in Inferior leads T wave inversion now evident in Lateral leads Confirmed by Yann Osorio ([id number]) on 10/26/2021 1:59:22 PM Referred By: REFERRED SELF Confirmed By:Yann Osorio
[2021-10-26] MEDS ORDERED: LAVAGE SOLUTION 4000ML PO SCH (16:00)
[2021-10-26] MEDS ORDERED: ACETAMINOPHEN 325 MG TAB PO PRN (16:15)
--- NOTE | 2021-10-26 17:15 | Nephrology Consultation ---
Date of Consultation October 26, 2021 Assessment & Plan (1) CKD (chronic kidney disease), stage V: progressive CKD with nephrotic range proteinuria in a pt who historically preferred conservative measures. at risk for volume overload w/ pRBC. now ESRD. reiterated he plans / desires conservative care for ESRD and no dialysis; daughter present during this discussion and supports it -dailybmp -cont current OP meds -renal diet when taking po again (2) HTN (hypertension): continue routine OP meds including lasix; could use labetalol prn (3) Acute on chronic anemia: per primary service and GI; may need extra lasix w/ pRBC History of Present Illness Reason for Consultation: [email or web address] Requesting Physician: Dr Villatoro Attending Physician: Vicente Villatoro MD History of Present Illness 86 y/o M whom I'm asked to see for CKD 5 was admitted today for management of acute on chronic anemia. He follows in CKD clinic and gets erythropoietin shots: noted today to have hgb 5.9 on presentation for injection and sent to ER. PMH includes HTN, CKD5 w/ nephrotic range proteinuria, severe aortic stenosis, prostatic hypertrophy, OA, anemia of CKD on iron infusions and HAO. He follows w/ Dr Hwang in CKD clinic and reported he wanted no dialysis should need arise at September. His creatinine was 3.5 one year ago, 5 earlier this month. Pt reports about 4 wks of loose black stool with one week of fatigue and worse claudication; also more sob recnetly. no n/v, no chest pain or palpitations, no confusion, no HB, no edema, no new/worrisome voiding sx. GI has evaluated the pt and EGD/colonoscopy planned for AM. Pt had declined these procedures earlier this year. He is slated to receive 2 units pRBC. Allergies Allergy/AdvReac Type Severity Reaction Status Date / Time No Known Allergies Allergy Unknown Verified 06/02/06 16:47 Home Medications Medication Instructions Recorded Confirmed Type acetaminophen 500 mg capsule 500 mg PO TID PRN Pain 10/26/21 10/26/21 History alprazolam 1 mg tablet 1 mg PO BID 10/26/21 10/26/21 History amlodipine 10 mg tablet (Norvasc) 10 mg PO DAILY 10/26/21 10/26/21 History ascorbic acid (vitamin C) 1,000 mg 1 g PO DAILY 10/26/21 10/26/21 History tablet (Vitamin C) aspirin 81 mg tablet,delayed 81 mg PO DAILY 10/26/21 10/26/21 History release buspirone 15 mg tablet 22.5 mg PO BID 10/26/21 10/26/21 History cholecalciferol (vitamin D3) 25 25 mcg PO DAILY 10/26/21 10/26/21 History mcg (1,000 unit) capsule cyanocobalamin (vitamin B-12) 1,000 mcg PO DAILY 10/26/21 10/26/21 History 1,000 mcg tablet famotidine 10 mg tablet 10 mg PO DAILY 10/26/21 10/26/21 History fluticasone propionate 50 2 spray intranasal DAILY 10/26/21 10/26/21 History mcg/actuation nasal spray,suspension furosemide 80 mg tablet 80 mg PO QDL 10/26/21 10/26/21 History furosemide 80 mg tablet (Lasix) 160 mg PO DAILY 10/26/21 10/26/21 History hydralazine 50 mg tablet 50 mg PO QID 10/26/21 10/26/21 History metoprolol succinate 50 mg 75 mg PO DAILY 10/26/21 10/26/21 History tablet,extended release 24 hr mirtazapine 45 mg tablet 45 mg PO HS 10/26/21 10/26/21 History multivitamin 1 tab PO DAILY 10/26/21 10/26/21 History potassium chloride 10 mEq 20 meq PO DAILY 10/26/21 10/26/21 History tablet,extended release psyllium husk 3.4 gram/5.4 gram 1 tbsp PO BID 10/26/21 10/26/21 History oral powder (Metamucil) sennosides 8.6 mg-docusate sodium 1 tab-cap PO DAILY 10/26/21 10/26/21 History 50 mg tablet (Senna Plus) terazosin 10 mg capsule 10 mg PO HS 10/26/21 10/26/21 History Patient History Medical History BPH (benign prostatic hyperplasia) Chronic anemia Chronic diastolic heart failure due to valvular disease CKD (chronic kidney disease), stage V HTN (hypertension) Moderate aortic valve regurgitation Severe aortic valve stenosis Surgical History H/O sinus surgery History of carpal tunnel surgery History of cataract surgery History of cholecystectomy History of nasal surgery History of tonsillectomy and adenoidectomy Family History Brother Heart disorder Social History Smoking Status: Former smoker Hx Alcohol Use: No Preferred Language: 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: Voice Beliefs That Will Affect Care: None Current Living Situation: Alone Feels Safe at Home: Yes Assistive Devices: None Review of Systems Review of Systems: All systems reviewed & are unremarkable except as noted in HPI & below Physical Exam Constitutional: well developed and well nourished Eyes: EOM intact bilaterally ENMT: Ears: no external ear abnormality Nose: no external nose abnormality Mouth: + dry oral mucous membranes Neck: no nuchal rigidity Respiratory: normal respiratory effort Auscultation: + diminished lung sounds Cardiovascular: Rate/Rhythm: regular rate and regular rhythm Heart Sounds: + murmur Extremities: no edema Gastrointestinal (Abdomen): Inspection/Auscultation: normal bowel sounds Percussion/Palpation: abdomen soft; abdomen nontender Musculoskeletal: Extremities: strength 5/5 throughout Skin: no rashes, warm and dry Neurologic: johnson, fluent speech, no tremor Psychiatric: Orientation: alert and oriented x 3 Speech: normal rate/rhythm/volume of speech Insight: good insight Judgement: good judgement Results & Data ([facility]) Vital Signs (Past 12 Hours) Vital Signs Temp Pulse Pulse Resp BP BP Pulse Ox 10/26/21 16:51 36.4 C L 67 18 180/64 H 98 10/26/21 15:51 36.9 C 66 20 154/70 H 94 10/26/21 14:00 36.5 C 69 18 167/78 H 98 10/26/21 14:51 36.5 C 67 18 167/74 H 96 10/26/21 14:21 36.4 C 63 18 165/67 H 94 10/26/21 14:06 36.4 C 61 16 162/65 H 98 10/26/21 13:50 36.4 C L 69 18 163/68 H 95 10/26/21 13:30 36.4 C 64 16 170/67 H 96 10/26/21 12:33 70 18 159/70 H 96 10/26/21 11:24 96 10/26/21 11:24 68 18 159/66 H 96 10/26/21 09:26 36.6 C 76 20 140/64 97 O2 Del Method 10/26/21 16:51 10/26/21 15:51 10/26/21 14:00 10/26/21 14:51 10/26/21 14:21 10/26/21 14:06 10/26/21 13:50 10/26/21 13:30 10/26/21 12:33 Room Air 10/26/21 11:24 Room Air 10/26/21 11:24 Room Air 10/26/21 09:26 Room Air Laboratory Results 10/26/21 09:50 10/26/21 09:50
[2021-10-26] MEDS: hydrALAZINE TAB 50 MG TAB PO SCH ×3 (17:29→21:22)
[2021-10-26] MEDS: FUROSEMIDE 40 MG/4 ML VIAL IV SCH ×2 (17:50→21:22)
[2021-10-26] MEDS: MIRTAZAPINE SOLTAB 15 MG PO SCH (21:23)
[2021-10-26] MEDS: TERAZOSIN HCL 5 MG CAP PO SCH (21:23)
[2021-10-26] MEDS: busPIRone 7.5 MG TAB PO SCH (21:24)
[2021-10-26] MEDS: ALPRAZolam 0.5 MG TABLET PO SCH (21:25)
[2021-10-26 23:01] LABS: Hematocrit (blood only) 24.3 % (40.1-51.0); Hemoglobin 7.7 g/dl (14.0-18.0)
[2021-10-27] MEDS: PANTOprazole 40 MG in DEXTROSE 5% 100 ML IV SCH ×3 (04:05→14:07)
[2021-10-27] MEDS: hydrALAZINE TAB 50 MG TAB PO SCH ×4 (05:15→20:41)
[2021-10-27 05:27] LABS: Hematocrit (blood only) 24.6 % (40.1-51.0); Hemoglobin 7.9 g/dl (14.0-18.0); Mean Corpuscular Hemoglobin 31.5 pg (25.0-34.0); Mean Corpuscular Hgb Conc 32.1 g/dL (32.0-36.0); Mean Platelet Volume 10.1 fL (9.4-12.4); Platelet Count 248 K/uL (130-400); RDW Coefficient of Variation 18.9 % (11.5-14.5); RDW Standard Deviation 64.5 fL (36.4-46.3); Red Blood Count 2.51 M/uL (4.63-6.08); White Blood Count 10.15 K/ul (4.8-10.8)
[2021-10-27 05:28] LABS: Hematocrit (blood only) 25.2 % (40.1-51.0); Hemoglobin 7.9 g/dl (14.0-18.0)
[2021-10-27 05:54] LABS: BUN Creatinine Ratio 16.3 (10-20); Calcium 8.4 mg/dl (8.5-10.1); Creatinine Clr Calc Pharmacy 10.4 ml/min; Est GFR (African American) 10.7 ml/min; Est GFR (Non-African American) 9.2 ml/min; Potassium 3.3 mmol/L (3.5-5.1)
[2021-10-27] MEDS: amLODIPine BESYLATE 5 MG TAB PO SCH (05:59)
--- NOTE | 2021-10-27 08:35 | Gastroenterology Progress Note ---
Date of Service October 27, 2021 Assessment & Plan (1) Acute on chronic anemia: Plan: 86 year old male with history of HTN, CKD, WENDY, aortica stenosis, skin CA, anemia on OP IV iron and procrit admitted through the ED for acute on chronic anemia, HGB 6.1, heme + in the setting of dark stools x 4-6 weeks. S/P 2 units RBC w/ HGB this AM 7.9. He did expierence some BRB with bowel prep early on, now suggests clear stools. NPO for endoscopic evaluation today. NPO for EGD/Colonoscopy Can continue IV PPI bolus and drip Thank you for allowing us to participate in the care of this patient. Please call with any acute changes, questions or concerns. Please see addendum below with additional recommendation from my supervising physician. Admission and Anticipated Discharge Date Admission Date: October 26, 2021 Supervising Physician Co-Signing Physician Notes I performed a history and physical examination of the patient today, including specifically on physical exam - soft abdomen. I have discussed the patient's management with the advanced practitioner. Please refer to the nurse practitioner's note for the documented findings and plan of care. Subjective Pt was seen and evaluated, chart reviewed. 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 He notes he saw some BRB with bowel prep but that passed and was followed by green/yellow liquid stools No abd pain, nausea, vomiting. Denies CP, SOB Is NPO for EGD/Colon Review of Systems Review of Systems: All systems reviewed & are unremarkable except as noted in HPI & below Physical Exam Constitutional: WD/WN, vitals as above Neck: normal visual inspection and trachea midline Respiratory: normal respiratory effort, lungs clear to auscultation Cardiovascular: Rate/Rhythm: regular rate and regular rhythm Gastrointestinal (Abdomen): normal bowel sounds, soft, nontender, no hepatosplenomegaly Skin: no rashes, warm and dry Results & Data ([facility]) Vital Signs (Past 12 Hours) Vital Signs Temp Pulse Pulse Pulse Resp BP BP 10/27/21 07:22 10/27/21 07:20 36.5 C 79 18 187/79 H 10/27/21 07:15 81 10/27/21 05:57 188/77 H 10/27/21 03:49 37.5 C 80 18 180/73 H 10/26/21 22:18 75 10/26/21 23:07 36.9 C 78 18 176/79 H 10/26/21 21:00 36.4 C L 76 18 176/71 H Pulse Ox O2 Del Method 10/27/21 07:22 Room Air 10/27/21 07:20 91 Room Air 10/27/21 07:15 10/27/21 05:57 10/27/21 03:49 90 Room Air 10/26/21 22:18 10/26/21 23:07 92 Room Air 10/26/21 21:00 94 Laboratory Results 10/27/21 10/27/21 10/27/21 Range/Units 05:17 05:17 05:17 WBC 10.15 (4.8-10.8) K/ul RBC 2.51 L (4.63-6.08) M/uL Hgb 7.9 L 7.9 L (14.0-18.0) g/dl Hct 25.2 L 24.6 L (40.1-51.0) % MCV 98.0 (80.0-100.0) fL MCH 31.5 (25.0-34.0) pg MCHC 32.1 (32.0-36.0) g/dL RDW Std Deviation 64.5 H (36.4-46.3) fL RDW Coeff of Augustina 18.9 H (11.5-14.5) % Plt Count 248 (130-400) K/uL MPV 10.1 (9.4-12.4) fL Immature Gran % (Auto) % Neut % (Auto) % Lymph % (Auto) % [place] % (Auto) % Eos % (Auto) % Baso % (Auto) % Neut # (Auto) (1.4-6.5) K/uL Lymph # (Auto) (1.2-3.4) K/uL Winona # (Auto) (0.24-0.82) K/uL Eos # (Auto) (0-0.50) K/uL Baso # (Auto) (0-0.2) K/uL Immature Gran # (Auto) (0.00-0.02) K/uL Polychromasia Basophilic Stippling PT (9.0-12.0) Seconds INR (0.9-1.1) APTT (21.0-31.0) Seconds PTT Ratio Sodium 140 (136-145) mmol/L Potassium 3.3 L (3.5-5.1) mmol/L Chloride 104 (98-107) mmol/L Carbon Dioxide 24 (21-32) mmol/L Anion Gap 12 H (3-11) BUN 84 H D (6-23) mg/dl Creatinine 5.15 H* D (0.6-1.4) mg/dl Est Cr Clr Drug Dosing 10.4 ml/min Est GFR ( Amer) 10.7 ml/min Est GFR (Non-Af Amer) 9.2 ml/min BUN/Creatinine Ratio 16.3 (10-20) Glucose 95 (70-99(Fasting)) mg/dl Calcium 8.4 L (8.5-10.1) mg/dl Total Bilirubin (0.2-1.0) mg/dl AST (13-39) U/L ALT (7-52) U/L Alkaline Phosphatase (34-104) U/L Troponin I High Sens (0-20) pg/ml Total Protein (6.0-8.3) gm/dl Albumin (3.4-5.0) gm/dl Globulin (2.5-4.0) gm/dl Albumin/Globulin Ratio (0.9-2) POC Stool Occult Blood (Negative) SARS-CoV-2, RNA, NAAT (NEGATIVE) Blood Type Blood Type Recheck Antibody Screen Crossmatch 10/26/21 10/26/21 10/26/21 Range/Units 22:42 22:42 16:36 WBC (4.8-10.8) K/ul RBC (4.63-6.08) M/uL Hgb 7.7 L (14.0-18.0) g/dl Hct 24.3 L (40.1-51.0) % MCV (80.0-100.0) fL MCH (25.0-34.0) pg MCHC (32.0-36.0) g/dL RDW Std Deviation (36.4-46.3) fL RDW Coeff of Augustina (11.5-14.5) % Plt Count (130-400) K/uL MPV (9.4-12.4) fL Immature Gran % (Auto) % Neut % (Auto) % Lymph % (Auto) % [place] % (Auto) % Eos % (Auto) % Baso % (Auto) % Neut # (Auto) (1.4-6.5) K/uL Lymph # (Auto) (1.2-3.4) K/uL Winona # (Auto) (0.24-0.82) K/uL Eos # (Auto) (0-0.50) K/uL Baso # (Auto) (0-0.2) K/uL Immature Gran # (Auto) (0.00-0.02) K/uL Polychromasia Basophilic Stippling PT (9.0-12.0) Seconds INR (0.9-1.1) APTT (21.0-31.0) Seconds PTT Ratio Sodium (136-145) mmol/L Potassium (3.5-5.1) mmol/L Chloride (98-107) mmol/L Carbon Dioxide (21-32) mmol/L Anion Gap (3-11) BUN (6-23) mg/dl Creatinine (0.6-1.4) mg/dl Est Cr Clr Drug Dosing ml/min Est GFR ( Amer) ml/min Est GFR (Non-Af Amer) ml/min BUN/Creatinine Ratio (10-20) Glucose (70-99(Fasting)) mg/dl Calcium (8.5-10.1) mg/dl Total Bilirubin (0.2-1.0) mg/dl AST (13-39) U/L ALT (7-52) U/L Alkaline Phosphatase (34-104) U/L Troponin I High Sens 72.9 H* 82.8 H* (0-20) pg/ml Total Protein (6.0-8.3) gm/dl Albumin (3.4-5.0) gm/dl Globulin (2.5-4.0) gm/dl Albumin/Globulin Ratio (0.9-2) POC Stool Occult Blood (Negative) SARS-CoV-2, RNA, NAAT (NEGATIVE) Blood Type Blood Type Recheck Antibody Screen Crossmatch 10/26/21 10/26/21 10/26/21 Range/Units 13:00 12:07 11:24 WBC (4.8-10.8) K/ul RBC (4.63-6.08) M/uL Hgb (14.0-18.0) g/dl Hct (40.1-51.0) % MCV (80.0-100.0) fL MCH (25.0-34.0) pg MCHC (32.0-36.0) g/dL RDW Std Deviation (36.4-46.3) fL RDW Coeff of Augustina (11.5-14.5) % Plt Count (130-400) K/uL MPV (9.4-12.4) fL Immature Gran % (Auto) % Neut % (Auto) % Lymph % (Auto) % Win[place] % (Auto) % Eos % (Auto) % Baso % (Auto) % Neut # (Auto) (1.4-6.5) K/uL Lymph # (Auto) (1.2-3.4) K/uL Winona # (Auto) (0.24-0.82) K/uL Eos # (Auto) (0-0.50) K/uL Baso # (Auto) (0-0.2) K/uL Immature Gran # (Auto) (0.00-0.02) K/uL Polychromasia Basophilic Stippling PT (9.0-12.0) Seconds INR (0.9-1.1) APTT (21.0-31.0) Seconds PTT Ratio Sodium (136-145) mmol/L Potassium (3.5-5.1) mmol/L Chloride (98-107) mmol/L Carbon Dioxide (21-32) mmol/L Anion Gap (3-11) BUN (6-23) mg/dl Creatinine (0.6-1.4) mg/dl Est Cr Clr Drug Dosing ml/min Est GFR ( Amer) ml/min Est GFR (Non-Af Amer) ml/min BUN/Creatinine Ratio (10-20) Glucose (70-99(Fasting)) mg/dl Calcium (8.5-10.1) mg/dl Total Bilirubin (0.2-1.0) mg/dl AST (13-39) U/L ALT (7-52) U/L Alkaline Phosphatase (34-104) U/L Troponin I High Sens (0-20) pg/ml Total Protein (6.0-8.3) gm/dl Albumin (3.4-5.0) gm/dl Globulin (2.5-4.0) gm/dl Albumin/Globulin Ratio (0.9-2) POC Stool Occult Blood Positive A (Negative) SARS-CoV-2, RNA, NAAT NEGATIVE (NEGATIVE) Blood Type Blood Type Recheck O Positive Antibody Screen Crossmatch 10/26/21 10/26/21 10/26/21 Range/Units 09:50 09:50 09:50 WBC 10.40 (4.8-10.8) K/ul RBC 1.98 L (4.63-6.08) M/uL Hgb 6.1 L* (14.0-18.0) g/dl Hct 20.4 L* (40.1-51.0) % MCV 103.0 H (80.0-100.0) fL MCH 30.8 (25.0-34.0) pg MCHC 29.9 L (32.0-36.0) g/dL RDW Std Deviation 73.7 H (36.4-46.3) fL RDW Coeff of Augustina 19.9 H (11.5-14.5) % Plt Count 252 (130-400) K/uL MPV 10.7 (9.4-12.4) fL Immature Gran % (Auto) 0.9 % Neut % (Auto) 72.9 % Lymph % (Auto) 15.2 % Winona % (Auto) 8.7 % Eos % (Auto) 1.8 % Baso % (Auto) 0.5 % Neut # (Auto) 7.59 H (1.4-6.5) K/uL Lymph # (Auto) 1.58 (1.2-3.4) K/uL Winona # (Auto) 0.90 H (0.24-0.82) K/uL Eos # (Auto) 0.19 (0-0.50) K/uL Baso # (Auto) 0.05 (0-0.2) K/uL Immature Gran # (Auto) 0.09 H (0.00-0.02) K/uL Polychromasia 1+ Basophilic Stippling 1+ PT 10.0 (9.0-12.0) Seconds INR 0.9 (0.9-1.1) APTT 22.8 (21.0-31.0) Seconds PTT Ratio 0.8 Sodium 137 (136-145) mmol/L Potassium 3.9 (3.5-5.1) mmol/L Chloride 106 (98-107) mmol/L Carbon Dioxide 20 L (21-32) mmol/L Anion Gap 11 (3-11) BUN 104 H (6-23) mg/dl Creatinine 5.49 H* (0.6-1.4) mg/dl Est Cr Clr Drug Dosing 9.7 ml/min Est GFR ( Amer) 9.9 ml/min Est GFR (Non-Af Amer) 8.5 ml/min BUN/Creatinine Ratio 18.9 (10-20) Glucose 111 H (70-99(Fasting)) mg/dl Calcium 8.5 (8.5-10.1) mg/dl Total Bilirubin 0.2 (0.2-1.0) mg/dl AST 20 (13-39) U/L ALT 19 (7-52) U/L Alkaline Phosphatase 47 (34-104) U/L Troponin I High Sens 89.8 H* (0-20) pg/ml Total Protein 5.7 L (6.0-8.3) gm/dl Albumin 3.4 (3.4-5.0) gm/dl Globulin 2.3 L (2.5-4.0) gm/dl Albumin/Globulin Ratio 1.5 (0.9-2) POC Stool Occult Blood (Negative) SARS-CoV-2, RNA, NAAT (NEGATIVE) Blood Type Blood Type Recheck Antibody Screen Crossmatch 10/26/21 Range/Units 09:44 WBC (4.8-10.8) K/ul RBC (4.63-6.08) M/uL Hgb (14.0-18.0) g/dl Hct (40.1-51.0) % MCV (80.0-100.0) fL MCH (25.0-34.0) pg MCHC (32.0-36.0) g/dL RDW Std Deviation (36.4-46.3) fL RDW Coeff of Augustina (11.5-14.5) % Plt Count (130-400) K/uL MPV (9.4-12.4) fL Immature Gran % (Auto) % Neut % (Auto) % Lymph % (Auto) % Win[place] % (Auto) % Eos % (Auto) % Baso % (Auto) % Neut # (Auto) (1.4-6.5) K/uL Lymph # (Auto) (1.2-3.4) K/uL Winona # (Auto) (0.24-0.82) K/uL Eos # (Auto) (0-0.50) K/uL Baso # (Auto) (0-0.2) K/uL Immature Gran # (Auto) (0.00-0.02) K/uL Polychromasia Basophilic Stippling PT (9.0-12.0) Seconds INR (0.9-1.1) APTT (21.0-31.0) Seconds PTT Ratio Sodium (136-145) mmol/L Potassium (3.5-5.1) mmol/L Chloride (98-107) mmol/L Carbon Dioxide (21-32) mmol/L Anion Gap (3-11) BUN (6-23) mg/dl Creatinine (0.6-1.4) mg/dl Est Cr Clr Drug Dosing ml/min Est GFR ( Amer) ml/min Est GFR (Non-Af Amer) ml/min BUN/Creatinine Ratio (10-20) Glucose (70-99(Fasting)) mg/dl Calcium (8.5-10.1) mg/dl Total Bilirubin (0.2-1.0) mg/dl AST (13-39) U/L ALT (7-52) U/L Alkaline Phosphatase (34-104) U/L Troponin I High Sens (0-20) pg/ml Total Protein (6.0-8.3) gm/dl Albumin (3.4-5.0) gm/dl Globulin (2.5-4.0) gm/dl Albumin/Globulin Ratio (0.9-2) POC Stool Occult Blood (Negative) SARS-CoV-2, RNA, NAAT (NEGATIVE) Blood Type O Positive Blood Type Recheck Antibody Screen NEGATIVE Crossmatch See Detail
[2021-10-27] MEDS: busPIRone 7.5 MG TAB PO SCH ×2 (08:39→20:41)
[2021-10-27] MEDS: METOPROLOL SUCC 25MG EXT REL TAB PO SCH (08:39)
[2021-10-27] MEDS: ALPRAZolam 0.5 MG TABLET PO SCH ×2 (09:09→20:45)
--- NOTE | 2021-10-27 10:40 | Anesthesiology Consultation ---
Date of Service October 27, 2021 Assessment & Plan Chart Review Chart Review: Acceptable Risk for Surgery and Patient NOT seen in Pre Admission Testing Higher risk patient for lower risk procedure. NO further testing necessary Aware of significant Consults Requested none ASA ASA3 Proposed Anesthesia Anesthesia Type: MAC Risk / Benefits Reviewed With: PT / POA / Parent / Guardian, Accepts Plan and Informed Consent Obtained History Surgery Operation Date: 10/27/21 16:30 Proposed Procedures p Colonoscopy EGD Dr. Marr - Cuauhtemoc Marr MD Height/Weight Height: 5 ft 7 in Weight: 86.5 kg Allergies Allergy/AdvReac Type Severity Reaction Status Date / Time No Known Allergies Allergy Unknown Verified 10/27/21 10:39 Medications Home Medications Medication Instructions Recorded Confirmed Last Taken acetaminophen 500 mg capsule 500 mg PO TID PRN Pain 10/26/21 10/26/21 10/26/21 alprazolam 1 mg tablet 1 mg PO BID 10/26/21 10/26/21 10/26/21 amlodipine 10 mg tablet (Norvasc) 10 mg PO DAILY 10/26/21 10/26/21 10/26/21 ascorbic acid (vitamin C) 1,000 mg 1 g PO DAILY 10/26/21 10/26/21 Unknown tablet (Vitamin C) aspirin 81 mg tablet,delayed 81 mg PO DAILY 10/26/21 10/26/21 10/26/21 release buspirone 15 mg tablet 22.5 mg PO BID 10/26/21 10/26/21 10/26/21 cholecalciferol (vitamin D3) 25 25 mcg PO DAILY 10/26/21 10/26/21 10/26/21 mcg (1,000 unit) capsule cyanocobalamin (vitamin B-12) 1,000 mcg PO DAILY 10/26/21 10/26/21 Unknown 1,000 mcg tablet famotidine 10 mg tablet 10 mg PO DAILY 10/26/21 10/26/21 10/26/21 fluticasone propionate 50 2 spray intranasal DAILY 10/26/21 10/26/21 10/26/21 mcg/actuation nasal spray,suspension furosemide 80 mg tablet 80 mg PO QDL 10/26/21 10/26/21 Unknown furosemide 80 mg tablet (Lasix) 160 mg PO DAILY 10/26/21 10/26/21 10/26/21 hydralazine 50 mg tablet 50 mg PO QID 10/26/21 10/26/21 10/26/21 metoprolol succinate 50 mg 75 mg PO DAILY 10/26/21 10/26/21 10/26/21 tablet,extended release 24 hr mirtazapine 45 mg tablet 45 mg PO HS 10/26/21 10/26/21 Unknown multivitamin 1 tab PO DAILY 10/26/21 10/26/21 Unknown potassium chloride 10 mEq 20 meq PO DAILY 10/26/21 10/26/21 Unknown tablet,extended release psyllium husk 3.4 gram/5.4 gram 1 tbsp PO BID 10/26/21 10/26/21 10/26/21 oral powder (Metamucil) sennosides 8.6 mg-docusate sodium 1 tab-cap PO DAILY 10/26/21 10/26/21 Unknown 50 mg tablet (Senna Plus) terazosin 10 mg capsule 10 mg PO HS 10/26/21 10/26/21 Unknown Active Medications Generic Name Dose Route Start Last Admin Trade Name Dee Dee PRN Reason Stop Dose Admin Alprazolam 1 mg 10/26/21 21:00 10/27/21 09:09 Alprazolam 0.5 Mg Tablet PO 11/25/21 20:59 Not Given BID MAIA Amlodipine Besylate 10 mg 10/27/21 09:00 10/27/21 05:59 Amlodipine Besylate 5 Mg Tab PO 11/26/21 08:59 10 mg DAILY MAIA Administration Buspirone HCl 22.5 mg 10/26/21 21:00 10/27/21 08:39 Buspirone 7.5 Mg Tab PO 11/25/21 20:59 22.5 mg BID MAIA Administration Hydralazine HCl 50 mg 10/26/21 16:15 10/27/21 05:15 Hydralazine Tab 50 Mg Tab PO 11/25/21 16:14 50 mg QID MAIA Administration Pantoprazole Sodium 40 mg/ 100 mls @ 20 mls/hr 10/26/21 12:45 10/27/21 08:38 Dextrose IV 11/25/21 12:44 8 mg/hr Q5H MAIA 20 mls/hr Administration 8 MG/HR Metoprolol Succinate 75 mg 10/27/21 09:00 10/27/21 08:39 Metoprolol Succ 25mg Ext Rel Tab PO 11/26/21 08:59 75 mg DAILY MAIA Administration Mirtazapine 45 mg 10/26/21 21:00 10/26/21 21:23 Mirtazapine Soltab 15 Mg PO 11/25/21 20:59 45 mg HS MAIA Administration Polyethylene Glycol/Electrolytes 16 dose 10/26/21 16:00 10/26/21 16:40 Lavage Solution 4000ml PO 11/25/21 15:59 16 dose TODAY@1600 MAIA Administration Terazosin HCl 10 mg 10/26/21 21:00 10/26/21 21:23 Terazosin Hcl 5 Mg Cap PO 11/25/21 20:59 10 mg HS MAIA Administration Past Medical History Medical History BPH (benign prostatic hyperplasia) Chronic anemia Chronic diastolic heart failure due to valvular disease CKD (chronic kidney disease), stage V HTN (hypertension) Moderate aortic valve regurgitation Severe aortic valve stenosis Exercise / Class Metabolic Activity III < 4 Walking/Shop/Light housework say he can walk up 10-15 stairs Past Family History Family History Brother Heart disorder Past Surgical History Surgical History H/O sinus surgery History of carpal tunnel surgery History of cataract surgery History of cholecystectomy History of nasal surgery History of tonsillectomy and adenoidectomy Past Anesthesia History No Hx of Anesthesia Complications and No Family Hx of Anesthesia Complications History of PONV No Hx of PONV and No Hx of Motion Sickness Social History Smoking Status: Former smoker Do You Dip or Chew Tobacco: No Hx Alcohol Use: No Review of Systems Constitutional: as per Subjective / HPI Eyes: as per Subjective / HPI Ear, Nose, Mouth, Throat: as per Subjective / HPI Respiratory: + dyspnea on exertion Cardiovascular: + dyspnea on exertion Gastrointestinal: as per Subjective / HPI Genitourinary (Male): + as per Subjective / HPI (CKD toward ESRD Pt 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 dialysis) Musculoskeletal: as per Subjective / HPI Integumentary: as per Subjective / HPI Neurologic: as per Subjective / HPI Psychiatric: as per Subjective / HPI Endocrine: as per Subjective / HPI Hematologic / Lymphatic: as per Subjective / HPI Physical Exam Vital Signs Last Vital Signs Temp 36.5 C 10/27/21 07:20 Pulse 79 10/27/21 07:20 Resp 18 10/27/21 07:20 BP 187/79 H 10/27/21 07:20 Pulse Ox 91 10/27/21 07:20 O2 Del Method 10/27/21 07:22 Constitutional + obese ENMT Mouth: + dentition abnormality (missing); no TMJ abnormality Thyromental Distance: > or= 3.5 Finger Breadths Mallampati Class: II Neck normal visual inspection Respiratory + audible wheezes Cardiovascular Rate/Rhythm: regular rate and regular rhythm Heart Sounds: + murmur (KAUSHAL 3/6 heard at base (also may have mild diastolic murmur)) Musculoskeletal Spine: normal cervical ROM Extremities: extremities normal to inspection mild bruising Neurologic moves all extremities Psychiatric Orientation: alert and oriented x 3 Testing Laboratory Results 10/27/21 05:17 10/27/21 05:17 PT 10.0 Seconds (9.0-12.0) 10/26/21 09:50 INR 0.9 (0.9-1.1) 10/26/21 09:50 APTT 22.8 Seconds (21.0-31.0) 10/26/21 09:50 Blood Type O Positive 10/26/21 09:44 Antibody Screen NEGATIVE 10/26/21 09:44
[2021-10-27] MEDS ORDERED: LABETALOL HCL IV 5 MG/ML 20ML IV PRN ×2 (10:49→22:33)
--- NOTE | 2021-10-27 10:51 | Hospitalist Progress Note ---
Date of Service October 27, 2021 Assessment & Plan (1) Acute on chronic anemia: Plan: Acute upper GI bleed (2) Melena: Plan: Admit to [facility] with telemetry Patient presenting by referral of outpatient clinic after outpatient labs show Hgb 5.9. History of chronic anemia on iron infusions and Procrit injections. Baseline Hgb ~ 10.0. Patient reports dark stools x 1 week. Remote history of EGD and colonoscopy in 2004. Records unavailable. Patient currently hemodynamically stable. 2 unit PRBC -transfuse over 4 hours due to underlying CKD stage V and severe aortic stenosis. Lasix 40 mg IV after each unit received IV Protonix bolus and drip Clear liquids, n.p.o. Scope today (3) CKD (chronic kidney disease), stage V: Plan: Recent baseline creatinine 4.5-5.0 Creatinine 5.49 today Patient has not been interested in dialysis in the past Nephrology consult Patient 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 any dialysis (4) Severe aortic valve stenosis: (5) Moderate aortic valve regurgitation: (6) Chronic diastolic heart failure due to valvular disease: Plan: Typically managed with Lasix 240 mg total daily Diuresis with PRBC as above Hold home p.o. Lasix for now, reassess in a.m. (7) HTN (hypertension): Plan: BP controlled, continue amlodipine, hydralazine, metoprolol Patient n.p.o. currently for procedure. Add labetalol as needed IV (8) Anxiety and depression: Plan: Stable, continue home meds (9) DVT prophylaxis: Plan: SCDs due to anemia/GI bleeding Admission and Anticipated Discharge Date Admission Date: October 26, 2021 Subjective Pt was seen and evaluated, chart reviewed.Patient comfortable no new complaints. 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 States his stool is now brown. No abd pain, nausea, vomiting. Denies CP, SOB Is NPO for EGD/Colon Review of Systems Review of Systems: ROS per HPI, all other systems reviewed and negative Physical Exam Physical Exam: Constitutional:WD/WN, vitals as above Neck: trachea midline, no thyromegaly Respiratory: normal respiratory effort, lungs clear to auscultationAuscultation:no rhonchi and no wheezes Cardiovascular:RRR, no murmur, no edemaHeart Sounds:no murmur Gastrointestinal (Abdomen):normal bowel sounds, soft, nontender, no hepatosplenomegaly Musculoskeletal:no cyanosis or clubbing, extremities motor strength 5/5 Skin: no rashes, warm and dry Neurologic: AA+Ox3, euthymic affect Results & Data Results & Data ([facility]) Vital Signs (Past 12 Hours) Vital Signs Temp Pulse Pulse Pulse Resp BP Pulse Ox 10/27/21 10:34 36.7 C 80 80 18 199 H 10/27/21 07:22 10/27/21 07:20 36.5 C 79 18 187/79 H 91 10/27/21 07:15 81 10/27/21 05:57 188/77 H 10/27/21 03:49 37.5 C 80 18 180/73 H 90 10/26/21 23:07 36.9 C 78 18 176/79 H 92 O2 Del Method 10/27/21 10:34 Room Air 10/27/21 07:22 Room Air 10/27/21 07:20 Room Air 10/27/21 07:15 10/27/21 05:57 10/27/21 03:49 Room Air 10/26/21 23:07 Room Air Laboratory Results Short CBC 10/26/21 10/27/21 10/27/21 Range/Units 22:42 05:17 05:17 WBC 10.15 (4.8-10.8) K/ul Hgb 7.7 L 7.9 L 7.9 L (14.0-18.0) g/dl Hct 24.3 L 24.6 L 25.2 L (40.1-51.0) % Plt Count 248 (130-400) K/uL BMP 10/26/21 10/27/21 09:50 05:17 Sodium 137 140 Potassium 3.9 3.3 L Chloride 106 104 Carbon Dioxide 20 L 24 BUN 104 H 84 H D Creatinine 5.49 H* 5.15 H* D Glucose 111 H 95 Calcium 8.5 8.4 L Liver Function 10/26/21 Range/Units 09:50 Total Bilirubin 0.2 (0.2-1.0) mg/dl AST 20 (13-39) U/L ALT 19 (7-52) U/L Alkaline Phosphatase 47 (34-104) U/L Albumin 3.4 (3.4-5.0) gm/dl Medications Administered Current Inpatient Medications Acetaminophen (Acetaminophen 325 Mg Tab) 650 mg PO Q4H PRN PRN Reason: pain/fever Stop: 11/25/21 16:14 Alprazolam (Alprazolam 0.5 Mg Tablet) 1 mg PO BID MAIA Stop: 11/25/21 20:59 Last Admin: 10/27/21 09:09 Dose: Not Given Amlodipine Besylate (Amlodipine Besylate 5 Mg Tab) 10 mg PO DAILY MAIA Stop: 11/26/21 08:59 Last Admin: 10/27/21 05:59 Dose: 10 mg Buspirone HCl (Buspirone 7.5 Mg Tab) 22.5 mg PO BID MAIA Stop: 11/25/21 20:59 Last Admin: 10/27/21 08:39 Dose: 22.5 mg Hydralazine HCl (Hydralazine Tab 50 Mg Tab) 50 mg PO QID MAIA Stop: 11/25/21 16:14 Last Admin: 10/27/21 05:15 Dose: 50 mg Pantoprazole Sodium 40 mg/ (Dextrose) 100 mls @ 20 mls/hr IV Q5H MAIA Stop: 11/25/21 12:44 Last Admin: 10/27/21 08:38 Dose: 8 mg/hr, 20 mls/hr Metoprolol Succinate (Metoprolol Succ 25mg Ext Rel Tab) 75 mg PO DAILY MAIA Stop: 11/26/21 08:59 Last Admin: 10/27/21 08:39 Dose: 75 mg Mirtazapine (Mirtazapine Soltab 15 Mg) 45 mg PO HS MAIA Stop: 11/25/21 20:59 Last Admin: 10/26/21 21:23 Dose: 45 mg Polyethylene Glycol/Electrolytes (Lavage Solution 4000ml) 16 dose PO TODAY@1600 MAIA Stop: 11/25/21 15:59 Last Admin: 10/26/21 16:40 Dose: 16 dose Terazosin HCl (Terazosin Hcl 5 Mg Cap) 10 mg PO HS MAIA Stop: 11/25/21 20:59 Last Admin: 10/26/21 21:23 Dose: 10 mg
[2021-10-27] MEDS ORDERED: hydrALAZINE HCL 20 MG/ML VIAL IV PRN (11:03)
[2021-10-27] MEDS ORDERED: PROPOFOL IV EMULSION 10 MG/ML 20 ML VIAL IV ONE (11:03)
[2021-10-27] MEDS ORDERED: LIDOCAINE 2% MPF LOCAL 5 ML VIAL INFIL ONE (11:03)
[2021-10-27] MEDS ORDERED: PHENYLEPHRINE 100MCG/ML 5ML SYR ONE (11:22)
--- NOTE | 2021-10-27 12:21 | GI REPORT ---
Patient Name: Moo Crawford Procedure Date: 10/27/2021 10:51 AM Date of : 1935 Admit Type: Inpatient Age: 86 Gender: Male Attending MD: Cuauhtemoc Marr MD Procedure: Colonoscopy Providers: Cuauhtemoc Marr MD Referring MD: Ryan Rollins Md Indications: Anemia Medicines: Propofol per Anesthesia Complications: No immediate complications. Estimated Blood Loss: Estimated blood loss: none. Procedure: Pre-Anesthesia Assessment: - Prior to the procedure, a History and Physical was performed, and patient medications, allergies and sensitivities were reviewed. The patient's tolerance of previous anesthesia was reviewed. - The risks and benefits of the procedure and the sedation options and risks were discussed with the patient. All questions were answered and informed consent was obtained. - Patient identification and proposed procedure were verified prior to the procedure by the physician and the nurse. The procedure was verified in the procedure room. - Pre-procedure physical examination revealed no contraindications to sedation. After I obtained informed consent, the scope was passed under direct vision. Throughout the procedure, the patient's blood pressure, pulse, and oxygen saturations were monitored continuously. The Scope was introduced through the anus and advanced to the terminal ileum. The colonoscopy was performed without difficulty. The patient tolerated the procedure well. The quality of the bowel preparation was good. The terminal ileum, ileocecal valve, appendiceal orifice, and rectum were photographed. Findings: The perianal and digital rectal examinations were normal. The terminal ileum appeared normal. A 15 mm polyp was found in the cecum. The polyp was sessile. The polyp was removed with a saline injection-lift technique using a hot snare. Resection and retrieval were complete. Verification of patient identification for the specimen was done by the physician and nurse using the patient's name and date. Scattered small and large-mouthed diverticula were found in the sigmoid colon. The retroflexed view of the distal rectum and anal verge was normal and showed no anal or rectal abnormalities. Impression: - The examined portion of the ileum was normal. - One 15 mm polyp in the cecum, removed using injection-lift and a hot snare. Resected and retrieved. - Diverticulosis in the sigmoid colon. - The distal rectum and anal verge are normal on retroflexion view. Recommendation: - Await pathology results. COMMENT: No evidence of GI source of blodd loss, his anemia is likely due to CKD. Cuauhtemoc Marr MD 10/27/2021 12:21:15 PM This report has been signed electronically. Note Initiated On: 10/27/2021 10:51 AM Number of Addenda: 0 I attest to the content of the Intraoperative Record and orders documented therein, exceptions below {[id number]}
--- NOTE | 2021-10-27 12:22 | GI REPORT ---
Patient Name: Moo Crawford Procedure Date: 10/27/2021 10:51 AM Date of : 1935 Admit Type: Inpatient Age: 86 Gender: Male Attending MD: Cuauhtemoc Marr MD Procedure: Upper GI endoscopy Providers: Cuauhtemoc Marr MD Referring MD: Ryan Rollins Md Indications: Anemia Medicines: Propofol per Anesthesia Complications: No immediate complications. Estimated Blood Loss: Estimated blood loss: none. Procedure: Pre-Anesthesia Assessment: - Prior to the procedure, a History and Physical was performed, and patient medications, allergies and sensitivities were reviewed. The patient's tolerance of previous anesthesia was reviewed. - The risks and benefits of the procedure and the sedation options and risks were discussed with the patient. All questions were answered and informed consent was obtained. - Patient identification and proposed procedure were verified prior to the procedure by the physician and the nurse. The procedure was verified in the procedure room. - Pre-procedure physical examination revealed no contraindications to sedation. After obtaining informed consent, the endoscope was passed under direct vision. Throughout the procedure, the patient's blood pressure, pulse, and oxygen saturations were monitored continuously. The Endoscope was introduced through the mouth, and advanced to the third part of duodenum. The upper GI endoscopy was accomplished without difficulty. The patient tolerated the procedure well. Findings: The examined esophagus was normal. A large hiatal hernia was present. The entire examined stomach was normal. The duodenal bulb and second portion of the duodenum were normal. Impression: - Normal esophagus. - Large hiatal hernia. - Normal stomach. - Normal duodenal bulb and second portion of the duodenum. Recommendation: - Perform a colonoscopy today. Cuauhtemoc Marr MD 10/27/2021 12:13:08 PM Note Initiated On: 10/27/2021 10:51 AM Number of Addenda: 0 I attest to the content of the Intraoperative Record and orders documented therein, exceptions below {[id number]}
--- NOTE | 2021-10-27 12:43 | Anesthesiology Progress Note ---
Date of Service October 27, 2021 Anesthesia Post Procedure Vital Signs Vital Signs: Temp Pulse Pulse Pulse Resp BP BP 10/27/21 12:29 69 18 156/57 H 10/27/21 12:13 73 18 142/72 H 10/27/21 10:34 36.7 C 80 80 18 10/27/21 07:22 10/27/21 07:20 36.5 C 79 18 187/79 H 10/27/21 07:15 81 10/27/21 05:57 188/77 H 10/27/21 03:49 37.5 C 80 18 180/73 H 10/26/21 22:18 75 10/26/21 23:07 36.9 C 78 18 176/79 H 10/26/21 17:06 77 10/26/21 19:00 36.5 C 72 18 187/64 H 10/26/21 18:40 36.3 C L 77 18 178/75 H 10/26/21 21:00 36.4 C L 76 18 176/71 H 10/26/21 20:15 36.5 C 78 18 181/76 H 10/26/21 19:52 35.8 C L 76 20 173/72 H 10/26/21 19:25 10/26/21 19:24 36.6 C 72 20 180/60 H 10/26/21 18:59 36.5 C 72 18 187/64 H 10/26/21 18:28 36.3 C L 77 18 178/75 H 10/26/21 18:23 10/26/21 17:43 36.8 C 74 18 175/66 H 10/26/21 16:51 36.4 C L 67 18 180/64 H 10/26/21 15:51 36.9 C 66 20 154/70 H 10/26/21 14:00 36.5 C 69 18 167/78 H 10/26/21 14:51 36.5 C 67 18 167/74 H 10/26/21 14:21 36.4 C 63 18 165/67 H 10/26/21 14:06 36.4 C 61 16 162/65 H 10/26/21 13:50 36.4 C L 69 18 163/68 H 10/26/21 13:30 36.4 C 64 16 170/67 H Pulse Ox O2 Del Method 10/27/21 12:29 95 Room Air 10/27/21 12:13 94 Room Air 10/27/21 10:34 199 H Room Air 10/27/21 07:22 Room Air 10/27/21 07:20 91 Room Air 10/27/21 07:15 10/27/21 05:57 10/27/21 03:49 90 Room Air 10/26/21 22:18 10/26/21 23:07 92 Room Air 10/26/21 17:06 10/26/21 19:00 97 Room Air 10/26/21 18:40 96 Room Air 10/26/21 21:00 94 10/26/21 20:15 92 10/26/21 19:52 96 10/26/21 19:25 Room Air 10/26/21 19:24 96 10/26/21 18:59 97 10/26/21 18:28 96 10/26/21 18:23 Room Air 10/26/21 17:43 94 10/26/21 16:51 98 10/26/21 15:51 94 10/26/21 14:00 98 10/26/21 14:51 96 10/26/21 14:21 94 10/26/21 14:06 98 10/26/21 13:50 95 10/26/21 13:30 96 Transfer of Care Handoff Completed per policy Notes Mental Status: alert / awake / arousable and participated in evaluation Patient Amnestic to Procedure: Yes Nausea / Vomiting: adequately controlled Pain: adequately controlled Airway Patency, RR, SpO2: stable & adequate BP & HR: stable & adequate Hydration State: stable & adequate Anesthetic Complications: no major complications apparent and Pt Satisfied with anesthetic care
[2021-10-27 14:55] LABS: Reticulocyte % 6.5 % (0.5-2.0); Reticulocytes # 0.18 10^6/uL (0.02-0.10)
[2021-10-27 15:31] LABS: Ferritin 146.2 ng/ml (8-388)
--- NOTE | 2021-10-27 15:44 | Nephrology Progress Note ---
Date of Service October 27, 2021 Assessment & Plan (1) CKD (chronic kidney disease), stage V: Plan: progressive CKD with nephrotic range proteinuria in a pt who historically preferred conservative measures and has restated this preference at this admission. at risk for volume overload w/ pRBC. now ESRD. reiterated he plans / desires conservative care for ESRD and no dialysis; daughter present during this discussion and supports it -daily bmp -would let K drift back up after 2 extra lasix doses yesterday -cont current OP meds -renal diet when taking po again (2) HTN (hypertension): Plan: continue routine OP meds including lasix; could use labetalol prn (3) Acute on chronic anemia: Plan: per primary service and GI; hgb 7.9 today; on OP retacrit; may want to curbside cardiology about optimal hgb target in this pt w/ severe and ESRD for all around conservative mgt Admission and Anticipated Discharge Date Admission Date: October 26, 2021 Subjective no clinical events today - except was for colo/EGD; feels stronger, less sob w/ higher hgb; no voiding concerns, no sob, no edema. eating heartily when I saw him Review of Systems Review of Systems: All systems reviewed & are unremarkable except as noted in Subjective Physical Exam Constitutional: well developed and well nourished Eyes: EOM intact bilaterally ENMT: Ears: no external ear abnormality Nose: no external nose abnormality Mouth: + dry oral mucous membranes Neck: no nuchal rigidity Respiratory: normal respiratory effort Auscultation: + diminished lung sounds Cardiovascular: Rate/Rhythm: regular rate and regular rhythm Heart Sounds: + murmur Extremities: no edema Gastrointestinal (Abdomen): Inspection/Auscultation: normal bowel sounds Percussion/Palpation: abdomen soft; abdomen nontender Musculoskeletal: Extremities: strength 5/5 throughout Skin: no rashes, warm and dry Neurologic: johnson, fluent speech, no tremor Psychiatric: Orientation: alert and oriented x 3 Speech: normal rate/rhythm/volume of speech Insight: good insight Judgement: good judgement Results & Data ([facility]) Vital Signs (Past 12 Hours) Vital Signs Temp Pulse Pulse Pulse Resp BP BP 10/27/21 15:20 73 10/27/21 15:05 36.4 C L 72 20 152/62 H 10/27/21 12:43 70 18 173/78 H 10/27/21 12:29 69 18 156/57 H 10/27/21 12:13 73 18 142/72 H 10/27/21 10:34 36.7 C 80 80 18 10/27/21 07:22 10/27/21 07:20 36.5 C 79 18 187/79 H 10/27/21 07:15 81 10/27/21 05:57 188/77 H 10/27/21 03:49 37.5 C 80 18 180/73 H Pulse Ox O2 Del Method 10/27/21 15:20 10/27/21 15:05 90 Room Air 10/27/21 12:43 94 Room Air 10/27/21 12:29 95 Room Air 10/27/21 12:13 94 Room Air 10/27/21 10:34 199 H Room Air 10/27/21 07:22 Room Air 10/27/21 07:20 91 Room Air 10/27/21 07:15 10/27/21 05:57 10/27/21 03:49 90 Room Air Laboratory Results 10/27/21 05:17 10/27/21 05:17
[2021-10-27] MEDS: MIRTAZAPINE SOLTAB 15 MG PO SCH (20:41)
[2021-10-27] MEDS: TERAZOSIN HCL 5 MG CAP PO SCH (20:42)
--- NOTE | 2021-10-28 07:13 | XRay Report ---
XR chest 1V portable HISTORY: 86 years-old Male hypoxia acute hypoxia COMPARISON: Chest CT 06/15/2006 TECHNIQUE: Portable AP view of the chest FINDINGS: Cardiac silhouette is enlarged. Tortuosity of the thoracic aorta. No pneumothorax, large pleural effu arelis or lobar airspace consolidation. There is mild blunting of the lateral costophrenic angles. Dege nerative changes of the shoulders and spine. Pulmonary emphysema with chronic interstitial coarsening . IMPRESSION: 1. Cardiomegaly without pulmonary edema. 2. Emphysema with chronic interstitial coarsening. ACT 112: Negative or not required by law. The above report was generated using voice recognition software. It may contain grammatical, syntax o r spelling errors. Electronically signed by: Juan Gomez M.D. 10/28/2021 7:11 AM
[2021-10-28] MEDS: METOPROLOL SUCC 25MG EXT REL TAB PO SCH (07:55)
[2021-10-28] MEDS: busPIRone 7.5 MG TAB PO SCH (07:55)
[2021-10-28] MEDS: hydrALAZINE TAB 50 MG TAB PO SCH (07:55)
[2021-10-28] MEDS: ALPRAZolam 0.5 MG TABLET PO SCH (07:56)
[2021-10-28] MEDS: amLODIPine BESYLATE 5 MG TAB PO SCH (07:56)
[2021-10-28 08:31] LABS: Hematocrit (blood only) 25.9 % (40.1-51.0); Hemoglobin 8.1 g/dl (14.0-18.0); Mean Corpuscular Hemoglobin 31.5 pg (25.0-34.0); Mean Corpuscular Hgb Conc 31.3 g/dL (32.0-36.0); Mean Corpuscular Volume 100.8 fL (80.0-100.0); Mean Platelet Volume 10.7 fL (9.4-12.4); Platelet Count 252 K/uL (130-400); RDW Coefficient of Variation 19.3 % (11.5-14.5); Red Blood Count 2.57 M/uL (4.63-6.08); White Blood Count 10.28 K/ul (4.8-10.8)
[2021-10-28 09:04] LABS: Calcium 8.4 mg/dl (8.5-10.1); Creatinine Clr Calc Pharmacy 9.5 ml/min; Est GFR (African American) 9.6 ml/min; Est GFR (Non-African American) 8.2 ml/min; Potassium 3.1 mmol/L (3.5-5.1)
--- NOTE | 2021-10-28 11:12 | Nephrology Progress Note ---
Date of Service October 28, 2021 Assessment & Plan (1) CKD (chronic kidney disease), stage V: Plan: progressive CKD with nephrotic range proteinuria in a pt who historically preferred conservative measures and has restated this preference during this admission. at risk for volume overload w/ pRBC. now ESRD. reiterated he plans / desires conservative care for ESRD and no dialysis; daughter present during this discussion and supports it -daily bmp -would let K drift back up after 2 extra lasix doses yesterday -cont current OP meds -renal diet when taking po again (2) HTN (hypertension): Plan: continue routine OP meds including lasix except note modified hydralazine dosing -did increase hydralazine to 100 mg tid >note that lasix was not running for this pt and have added IV equivalent of his previous OP dose -agree with labetalol prn >consider cardiology curbside re optimal BP meds w/ severe and as below (3) Acute on chronic anemia: Plan: per primary service and GI; hgb 8.1 today; on OP retacrit; >>>may want to curbside cardiology about optimal hgb target in this pt w/ severe and ESRD for all around conservative mgt >will give venofer 200 mg today > t stn was 12% 09/30 as OP; won't be accurate to recheck now post pRBC -will redose HAO by giving epo 20K units SQ x 1 today as well Admission and Anticipated Discharge Date Admission Date: October 26, 2021 Subjective pt was discharged before I could see him on 10/28; a/p from this note including d/c recs were d/w hospitalist Results & Data ([facility]) Vital Signs (Past 12 Hours) Vital Signs Temp Pulse Pulse Resp BP Pulse Ox O2 Del Method 10/28/21 08:00 Room Air 10/28/21 07:42 36.8 C 79 16 172/72 H 97 Nasal Cannula 10/28/21 07:18 84 10/28/21 03:52 36.8 C 79 16 166/66 H 93 Nasal Cannula 10/28/21 01:42 81 173/67 H 10/28/21 01:06 83 171/65 H 10/27/21 23:49 37.0 C 81 16 175/65 H 94 Nasal Cannula O2 Flow Rate 10/28/21 08:00 10/28/21 07:42 1 10/28/21 07:18 10/28/21 03:52 1 10/28/21 01:42 10/28/21 01:06 10/27/21 23:49 1 Laboratory Results 10/28/21 07:15 10/28/21 07:15
[2021-10-28] MEDS ORDERED: FUROSEMIDE 40 MG/4 ML VIAL IV ONE (11:16)
[2021-10-28] MEDS ORDERED: POTASSIUM CHLORIDE CRTAB 20 MEQ TABCR PO STA (11:18)
[2021-10-28] MEDS ORDERED: EPOETIN ALFA 20,000 UNITS/ML VIAL SQ ONE (12:00)
--- NOTE | 2021-10-28 13:37 | Cardiology Consultation ---
Date of Consultation October 28, 2021 Assessment & Plan (1) Acute GI bleeding: (2) Anemia: (3) Elevated troponin: (4) Severe aortic valve stenosis: (5) ESRD (end stage renal disease): Plan Very pleasant 86-year-old male referred by Dr. Ryan Rollins, requesting recommendations regarding optimal blood pressure control an optimal hemoglobin in a patient with severe aortic stenosis. Patient with known severe aortic stenosis in end-stage renal disease, stage 5, creatinine greater than 5 mg/dL. Patient appears to be of sound mind, in the presence of his son visiting from [place], requesting conservative nonsurgical management. He he declines consideration for aortic valve intervention and declines hemodialysis. I would allow permissive hypertension, targeting a systolic blood pressure 130 to 150. Even a mild degree of anemia is associated with worse prognosis in patients with medically managed aortic stenosis. In this particular case, I recommending targeting a hemoglobin of at least 10 g/dL. The patient is interested in talking with Palliative Medicine, preferably as an outpatient noting his desire for discharge today. Supervising Physician Co-Signing Physician Notes Patient seen and examined. Essentially asymptomatic from a cardiovascular perspective. Denies chest pain, shortness of breath, syncope, or near syncope. No orthopnea or PND. Reports "I just want to get out of here". Admitted with low hemoglobin for outpatient lab testing. He is received 2 units of packed red blood cells since admission. PE: VSS. Gen: NAD, AAOx3. Heart: Regular rhtym. Normal S1. Diminished S2. 3/6 mid-to-late peaking medium pitched systolic ejection murmur heard best at the right second intercostal space. Lungs: Clear bilateral, no rales, rhonchi, wheeze. Extremities: No edema. A/P: Agree with above PA-C history, physical exam, assessment and plan. Patient reports no symptoms currently. Hemoglobin is up to 8.1 g/dL after 2 units of packed red blood cells. Agree with goal hemoglobin of 10.0 g/dL given complex underlying cardiovascular issues including severe aortic valve stenosis. Hemoglobin currently greater than 8.0 g/dL. Recommend continue oral iron supplementation and weekly Procrit shots. If hemoglobin does not improve with iron supplementation and erythropoietin, and/or patient exhibits signs of ongoing GI blood loss, additional transfusion of PRBCs may be considered. Follow hemoglobin closely with weekly lab evaluation. Prognosis prognosis secondary to stage V chronic kidney disease declining dialysis and severe aortic valve stenosis. History of Present Illness Reason for Consultation: ? Goal hemoglobin Requesting Physician: Severe aortic stenosis, recommendations regarding optimal blood pressure control, recommendations regarding optimal hemoglobin cut off. Attending Physician: Ryan Rollins MD History of Present Illness Mr. Moo Crawford is a 86-year-old male who is being seen today at the request of Dr. Ryan Rollins. Reasons for cardiology consultation include severe aortic stenosis, recommendations regarding optimal blood pressure control, recommendations regarding optimal hemoglobin cut off. Mr. Crawford is a very pleasant 86-year-old male with severe aortic stenosis and end-stage renal disease who has and continues to request conservative nonsurgical measures in regards to his severe aortic valve disease and end-stage renal disease. He has in continues to decline hemodialysis. The patient was admitted to [facility] through the ER on October 26, 2021 after outpatient laboratory work revealed hemoglobin of 5.9 g/dL. Baseline hemoglobin is typically around 10. Patient heme-positive, with dark stools over the proceeding 4 to 6 weeks. Patient received 2 units of packed red blood cells slowly over 4 hours with 40 mg IV Lasix after each unit without difficulty. EGD on October 27, 2021 revealed a large hiatal hernia, normal esophagus, normal stomach. Colonoscopy on the same date revealed a 15 mm polyp in the cecum that was resected and retrieved and diverticulosis. Patient has a history of chronic anemia, receiving weekly Procrit injections as well as IV iron infusions. Mr. Crawford was seen while eating lunch. His son who is visiting from [place] was at his bedside. Overall, the patient is feeling okay. He notes being originally from the [facility], moving to [facility] in the 1960s. 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 He notes having had a good life. He notes that his life now consists of getting up and watching television in going to doctor's appointments. He would like to be discharged home today. Patient denies chest pain, palpitations, or resting dyspnea. He is comfortable at rest. He develops dyspnea with activities of daily living. He notes that his lower extremities are looking better now than a have looked in a long time. He denies positional dizziness, near syncope, or syncope. EKG on October 26, 2021 revealed sinus rhythm at 70 bpm with premature atrial complexes, first-degree AV block, nonspecific ST and T-wave abnormality. Continuous telemetry monitoring reveals sinus with ectopy, without significant arrhythmias. January 18, 2021 TTE Interpretation Summary (as per Dr. Pike): The left ventricular cavity size is normal. The qualitative LV ejection fraction is 55- 59% (normal). The LV wall thickness is moderately increased (concentric). The aortic valve is moderately calcified. Severe aortic valve stenosis is present. Peak aortic valve max pressure gradient is 64.6 mmHg, mean aortic valve gradient 35.5 mmHg, calculated aortic valve area .91 cm2 Moderate aortic valve regurgitation is present. Mild mitral regurgitation is present. The left atrium is severely enlarged (>48 ml/m^2,). Mild tricuspid regurgitation is present. There is no evidence of pulmonary hypertension. A small (<5 mm) circumferential pericardial effusion is noted. Cardiac tamponade is absent. Allergies Allergy/AdvReac Type Severity Reaction Status Date / Time No Known Allergies Allergy Unknown Verified 10/27/21 10:39 Home Medications Medication Instructions Recorded Confirmed Type acetaminophen 500 mg capsule 500 mg PO TID PRN Pain 10/26/21 10/26/21 History alprazolam 1 mg tablet 1 mg PO BID 10/26/21 10/26/21 History amlodipine 10 mg tablet (Norvasc) 10 mg PO DAILY 10/26/21 10/26/21 History ascorbic acid (vitamin C) 1,000 mg 1 g PO DAILY 10/26/21 10/26/21 History tablet (Vitamin C) aspirin 81 mg tablet,delayed 81 mg PO DAILY 10/26/21 10/26/21 History release buspirone 15 mg tablet 22.5 mg PO BID 10/26/21 10/26/21 History cholecalciferol (vitamin D3) 25 25 mcg PO DAILY 10/26/21 10/26/21 History mcg (1,000 unit) capsule cyanocobalamin (vitamin B-12) 1,000 mcg PO DAILY 10/26/21 10/26/21 History 1,000 mcg tablet famotidine 10 mg tablet 10 mg PO DAILY 10/26/21 10/26/21 History fluticasone propionate 50 2 spray intranasal DAILY 10/26/21 10/26/21 History mcg/actuation nasal spray,suspension furosemide 80 mg tablet 80 mg PO QDL 10/26/21 10/26/21 History furosemide 80 mg tablet (Lasix) 160 mg PO DAILY 10/26/21 10/26/21 History hydralazine 50 mg tablet 50 mg PO QID 10/26/21 10/26/21 History metoprolol succinate 50 mg 75 mg PO DAILY 10/26/21 10/26/21 History tablet,extended release 24 hr mirtazapine 45 mg tablet 45 mg PO HS 10/26/21 10/26/21 History multivitamin 1 tab PO DAILY 10/26/21 10/26/21 History potassium chloride 10 mEq 20 meq PO DAILY 10/26/21 10/26/21 History tablet,extended release psyllium husk 3.4 gram/5.4 gram 1 tbsp PO BID 10/26/21 10/26/21 History oral powder (Metamucil) sennosides 8.6 mg-docusate sodium 1 tab-cap PO DAILY 10/26/21 10/26/21 History 50 mg tablet (Senna Plus) terazosin 10 mg capsule 10 mg PO HS 10/26/21 10/26/21 History Patient History Medical History BPH (benign prostatic hyperplasia) Chronic anemia Chronic diastolic heart failure due to valvular disease CKD (chronic kidney disease), stage V HTN (hypertension) Moderate aortic valve regurgitation Severe aortic valve stenosis Surgical History H/O sinus surgery History of carpal tunnel surgery History of cataract surgery History of cholecystectomy History of nasal surgery History of tonsillectomy and adenoidectomy Family History Brother Heart disorder Social History Smoking Status: Former smoker Do You Dip or Chew Tobacco: No; Hx Alcohol Use: No Preferred Language: Malay Tip Length Checker Required: Voice Beliefs That Will Affect Care: None Current Living Situation: Alone Feels Safe at Home: Yes Assistive Devices: Glasses Review of Systems Review of Systems: Complete review of systems is otherwise as stated above, negative, or noncontributory Physical Exam Physical Exam: General: A&Ox3. NAD. HENT: Normocephalic. Atraumatic. Eyes: PER. Conjunctiva pink, sclera clear. Neck: Transmitted systolic murmur. No JVD. Heart: RRR. Grade III/ systolic murmur. Slightly decreased S2. No rub. No gallop. Lungs: Clear to auscultation. Abdomen: +BS. Soft. Nontender. No masses or organomegaly. Extremities: No clubbing, cyanosis, or edema. Limited neurological examination is without focal deficits. Pulses: Posterior tibial=1/4. Results & Data ([facility]) Vital Signs (Past 12 Hours) Vital Signs Temp Pulse Pulse Resp BP Pulse Ox O2 Del Method 10/28/21 11:18 36.7 C 65 18 147/63 H 94 Room Air 10/28/21 08:00 Room Air 10/28/21 07:42 36.8 C 79 16 172/72 H 97 Nasal Cannula 10/28/21 07:18 84 10/28/21 03:52 36.8 C 79 16 166/66 H 93 Nasal Cannula 10/28/21 01:42 81 173/67 H O2 Flow Rate 10/28/21 11:18 10/28/21 08:00 10/28/21 07:42 1 10/28/21 07:18 10/28/21 03:52 1 10/28/21 01:42 Laboratory Results Cardiac Enzymes 10/27/21 Range/Units 14:23 Lactate Dehydrogenase 125 (86-244) U/L CBC 10/28/21 Range/Units 07:15 WBC 10.28 (4.8-10.8) K/ul RBC 2.57 L (4.63-6.08) M/uL Hgb 8.1 L (14.0-18.0) g/dl Hct 25.9 L (40.1-51.0) % Plt Count 252 (130-400) K/uL Comprehensive Metabolic Panel 10/28/21 Range/Units 07:15 Sodium 139 (136-145) mmol/L Potassium 3.1 L (3.5-5.1) mmol/L Chloride 103 (98-107) mmol/L Carbon Dioxide 24 (21-32) mmol/L BUN 79 H (6-23) mg/dl Creatinine 5.65 H* D (0.6-1.4) mg/dl Glucose 98 (70-99(Fasting)) mg/dl Calcium 8.4 L (8.5-10.1) mg/dl Intake and Output 10/27/21 10/28/21 10/28/21 22:59 06:59 14:59 Intake Total 180 / 371 Output Total 400 / 1400 Balance -220 / -1029 Intake: Oral 180 / 180 Output: Urine 400 / 1400 Other: # Unmeasured Voids 1 1
[2021-10-28] MEDS ORDERED: hydrALAZINE TAB 50 MG TAB PO SCH (14:00)
[2021-10-28] MEDS ORDERED: IRON SUCROSE 200 MG in 0.9 % SODIUM CHLORIDE 100 ML IV ONE (14:00)
--- NOTE | 2021-10-28 14:47 | Discharge Summary ---
Date of Service October 28, 2021 Admission HPI Per Admitting Provider 86-year-old male with PMH CKD stage V, chronic anemia, aortic valve stenosis and regurgitation, HTN, chronic diastolic CHF, BPH, anxiety, depression, and other problems to below who was referred to the ED for evaluation of anemia. Patient with history of chronic anemia currently receiving iron infusions and Procrit injections. Baseline Hgb ~ 10.0. Presented today for Procrit injection and had labs that showed Hgb 5.9. Patient was referred to the ED for further evaluation. Patient reports dark stools over the past 1 week. Also reports increased generalized weakness, fatigue, exertional shortness of breath. Denies abdominal pain, vomiting, bright red bleeding per rectum. Denies heavy NSAID use. No other recent illnesses, fevers, chills. Patient has chronic lower extremity edema which is unchanged from baseline. Denies chest pain and palpitations. No lightheadedness, dizziness, diaphoresis, syncopal events. Denies urinary symptoms. In the ED, labs show Hgb 6.1. Hemoccult stool is positive. Patient was ordered 2 unit PRBC. Patient was subsequently evaluated by gastroenterology who performed an EGD and a colonoscopy and on negative results have stated that this is likely due to patient's CKD. Also seen by nephrology and patient refusing dialysis. Also seen by cardiology and refusing any correction of patient's aortic stenosis. Otherwise recommended patient maintain a hemoglobin that is around 10. However patient eager for discharge currently informed that likely patient will benefit from outpatient transfusion. Patient will follow-up with his primary physician. Principal Diagnosis Anemia of chronic disease Discharge Exam Constitutional:WD/WN, vitals as above Neck: trachea midline, no thyromegaly Respiratory: normal respiratory effort, lungs clear to auscultationAuscultation:no rhonchi and no wheezes Cardiovascular:RRR, no murmur, no edemaHeart Sounds:no murmur Gastrointestinal (Abdomen):normal bowel sounds, soft, nontender, no hepatosplenomegaly Musculoskeletal:no cyanosis or clubbing, extremities motor strength 5/5 Skin: no rashes, warm and dry Neurologic: AA+Ox3, euthymic affect Discharge Data Allergies Allergy/AdvReac Type Severity Reaction Status Date / Time No Known Allergies Allergy Unknown Verified 10/27/21 10:39 Consultations 10/26/21 11:34 ED Decision to Admit Stat 10/26/21 16:15 Consult Gastroenterology Routine Consult Nephrology Routine 10/28/21 11:35 Consult Cardiology Routine Procedures Performed Operation Date: 10/27/21 16:30 Actual Procedures p Esophagogastroduodenoscopy - Cuauhtemoc Marr MD s Colonoscopy Polypectomy - Cuauhtemoc Marr MD Hospital Course (1) Acute on chronic anemia: Possibly secondary to anemia of chronic disease. Please see documentation above (2) Melena: (3) CKD (chronic kidney disease), stage V: Recent baseline creatinine 4.5-5.0 Creatinine 5.49 today Patient has not been interested in dialysis in the past Nephrology consult Patient 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 any dialysis (4) Severe aortic valve stenosis: (5) Moderate aortic valve regurgitation: (6) Chronic diastolic heart failure due to valvular disease: (7) HTN (hypertension): Cardiology recommending to maintain blood pressure around 150 systolic (8) Anxiety and depression: Stable, continue home meds (9) DVT prophylaxis: SCDs due to anemia/GI bleeding Total Time Total Time Spent Total Time Spent (In Minutes): 40 minutes Discharge Plan Discharge Items Patient Disposition: Home - Self-Care Reason For Visit: ANEMIA Discharge Diagnosis: Anemia of chronic disease Activity: Resume your previous activity Non-emergency contact: Primary Care Provider Call non-emergency contact if: your symptoms worsen Follow-up/Referrals: Roscoe Sagastume, [Primary Care Provider] - (Date & Time 11/02/2021 2:00 PM Provider Phillip Cordova III, MD Department [facility] ) Diet: Dialysis Renal Addtl Attending Provider Instructions: Avoid exertional activity Pending Studies at Discharge: No Stand-Alone Forms: My siOPTICA, Smoking Cessation Medications and DC Order Prescriptions: New hydralazine 50 mg Tablet 100 mg PO TID Qty: 180 0RF Continued alprazolam 1 mg tablet 1 mg PO BID acetaminophen 500 mg Capsule 500 mg PO TID PRN (Reason: Pain) amlodipine [Norvasc] 10 mg Tablet 10 mg PO DAILY buspirone 15 mg Tablet 22.5 mg PO BID famotidine 10 mg Tablet 10 mg PO DAILY fluticasone propionate [Flonase] 50 mcg/actuation [place],Suspension 2 spray INTRANASAL DAILY Rx Instructions: administer into each nostril furosemide [Lasix] 80 mg Tablet 160 mg PO DAILY metoprolol succinate 50 mg tablet extended release 24 hr 75 mg PO DAILY Metamucil 3.4 gram/5.4 gram Powder 1 tbsp PO BID Rx Instructions: mix into at least 8 oz of water or juice before administering aspirin [Aspirin Low-Strength] 81 mg Tablet,Delayed Release (Dr/Ec) 81 mg PO DAILY cholecalciferol (vitamin D3) 25 mcg (1,000 unit) Capsule 25 mcg PO DAILY multivitamin Tablet 1 tab PO DAILY ascorbic acid (vitamin C) [Vitamin C] 1,000 mg Tablet 1 g PO DAILY sennosides-docusate sodium [Senna Plus] 8.6-50 mg Tablet 1 tab-cap PO DAILY cyanocobalamin (vitamin B-12) 1,000 mcg Tablet 1,000 mcg PO DAILY potassium chloride 10 mEq Tablet Extended Release 20 meq PO DAILY furosemide 80 mg tablet 80 mg PO QDL mirtazapine 45 mg Tablet 45 mg PO HS terazosin 10 mg capsule 10 mg PO HS Discontinued hydralazine [Apresoline] 50 mg Tablet 50 mg PO QID Discharge Orders: Discharge Order (Routine); Ordered 10/28/21 Ordered By: Ryan Rollins Admission Data Admit Date/Time: 10/26/21 11:54 Attending Provider: Ryan Rollins Admit Provider: Vicente Villatoro Primary Care Provider: Roscoe Sagastume Other Providers: Vicente Villatoro ; Cuauhtemoc Marr ; Jenn Winn ; Sanju Gonzalez Other Interventions: Discharge Summary Assessment (RN) Last Done: 10/27/21 12:46
[2021-10-29] MEDS ORDERED: FUROSEMIDE 40 MG/4 ML VIAL IV SCH (09:00)
== END 2021-10-28 15:33 | disposition home or self-care (01) ==
LOC: ED 09:23 → INTOOBSV 11:54 → 2N 11:54 → SUATTDRO 11:54 → 2N 15:18

== ENCOUNTER 2022-06-19 10:28 | Observation (INO) ==
--- NOTE | 2022-06-19 11:15 | XRay Report ---
XR chest 1V not portable HISTORY: 87 years-old Male Sepsis acute sepsis COMPARISON: 10/27/2021 TECHNIQUE: AP view of the chest FINDINGS: Cardiac silhouette is enlarged. Pulmonary vascular congestion. Tortuosity of the thoracic aorta. No p neumothorax, large pleural effusion or lobar airspace consolidation. Small pleural effusions with mil d bibasilar densities. Degenerative changes of the shoulders and spine. 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 IMPRESSION: 1. Cardiomegaly with pulmonary vascular congestion. 2. Emphysema with chronic interstitial coarsening. 3. Small pleural effusions with mild bibasilar densities favoring atelectasis. ACT 112: Negative or not required by law. The above report was generated using voice recognition software. It may contain grammatical, syntax o r spelling errors. Electronically signed by: Juan Gomez M.D. 06/19/2022 11:14 AM
[2022-06-19] MEDS: SODIUM CHLORIDE 0.9% 500 ML IV SCH ×2 (11:49→18:10)
--- NOTE | 2022-06-19 12:00 | CT Scan Report ---
CT SCAN OF THE BRAIN WITHOUT IV CONTRAST CLINICAL HISTORY: Dizziness. Change in mental status. COMPARISON STUDY: CT of the brain dated 06/05/2006. TECHNIQUE: Unenhanced axial CT scan of the brain is performed from the vertex to the skull base. A do se lowering technique was utilized adhering to the principles of ALARA. CT DOSE: 537.48 mGy.cm FINDINGS: Brain parenchyma: There is age-related involutional change noting mild to moderate subcortical and pe riventricular microangiopathic disease. There is no hemorrhage, mass effect, or evidence of acute ter ritorial ischemia by CT criteria. Liu-white matter differentiation is preserved. No extra-axial flui d collection is seen. 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 Ventricles, sulci, cisterns: Prominent secondary to involutional change. Intracranial vasculature: There is atherosclerotic calcification of the cavernous carotid and vertebr al arteries. Calvarium: Unremarkable. Sinuses and mastoids: There is evidence of previous paranasal sinus surgery. The visualized paranasal sinuses are clear. There are trace mastoid effusions. Orbits: The bony orbits are grossly intact. There are bilateral ocular lens implants. IMPRESSION: There is no hemorrhage, mass effect, or evidence of acute territorial ischemia by CT kathy grijalva. ACT 112: Negative or not required by law. Electronically signed by: Ronal Leon M.D. 06/19/2022 11:58 AM
[2022-06-19 12:55] LABS: Basophils # (auto) 0.02 K/uL (0-0.2); Basophils % (auto) 0.2 %; Eosinophils # (auto) 0.03 K/uL (0-0.50); Eosinophils % (auto) 0.2 %; Hematocrit (blood only) 22.9 % (42.0-52.0); Hemoglobin 7.3 g/dl (14.0-18.0); Immature Granulocytes # (auto) 0.09 K/uL (0.01-0.20); Immature Granulocytes % (auto) 0.7 %; Lymphocytes # (auto) 0.43 K/uL (1.2-3.4); Lymphocytes % (auto) 3.5 %; Mean Corpuscular Hemoglobin 30.9 pg (25.0-34.0); Mean Corpuscular Hgb Conc 31.9 g/dL (32.0-36.0); Mean Platelet Volume 11.2 fL (9.4-12.4); Monocytes # (auto) 0.76 K/uL (0.11-0.59); Monocytes % (auto) 6.3 %; Neutrophils # (auto) 10.79 K/uL (1.40-6.50); Neutrophils % (auto) 89.1 %; Platelet Count 326 K/uL (130-400); RDW Coefficient of Variation 18.3 % (11.5-14.5); RDW Standard Deviation 63.8 fL (36.4-46.3); Red Blood Count 2.36 M/uL (4.70-6.10); White Blood Count 12.12 K/ul (4.8-10.8)
[2022-06-19 13:18] LABS: INR 1.1 (0.9-1.1); Partial Thromboplastin Ratio 1.1; Partial Thromboplastin Time 31.3 Seconds (21.0-31.0); Prothrombin Time 11.2 Seconds (9.0-12.0)
[2022-06-19 13:27] LABS: Alanine Aminotransferase 11 U/L (7-52); Albumin Globulin Ratio 1.2 (0.9-2); Albumin Level 3.4 gm/dl (3.4-5.0); Alkaline Phosphatase 67 U/L (34-104); Anion Gap 17 (3-11); Aspartate Aminotransferase 9 U/L (13-39); Bilirubin,Total 0.3 mg/dl (0.2-1.0); Calcium 8.3 mg/dl (8.6-10.3); Carbon Dioxide 12 mmol/L (21-32); Chloride 101 mmol/L (98-107); Est GFR (African American) 5.5 ml/min; Est GFR (Non-African American) 4.7 ml/min; Globulin 2.8 gm/dl (2.5-4.0); Glucose 120 mg/dl (70-99(Fasting)); Lipase 70 U/L (11-82); Magnesium 2.3 mg/dl (1.7-2.4); Phosphorus 7.4 mg/dl (2.5-4.9); Potassium 3.7 mmol/L (3.5-5.1); Sodium 130 mmol/L (136-145); Total Protein 6.2 gm/dl (6.0-8.3); Troponin I High Sensitivity 48.7 pg/ml (0-20)
[2022-06-19 13:32] LABS: Adenovirus PCR Not Detected (NotDetected); Bordetella parapertussis PCR Not Detected (NotDetected); Bordetella pertussis PCR Not Detected (NotDetected); Chlamydia pneumoniae PCR Not Detected (NotDetected); Coronavirus 229E PCR Not Detected (NotDetected); Coronavirus CoV-2 (COVID19)PCR Not Detected (NotDetected); Coronavirus HKU1 PCR Not Detected (NotDetected); Coronavirus NL63 PCR Not Detected (NotDetected); Coronavirus OC43PCR Not Detected (NotDetected); Human Metapneumovirus PCR Not Detected (NotDetected); Influenza A PCR Not Detected (NotDetected); Influenza B PCR Not Detected (NotDetected); Mycoplasma pneumoniae PCR Not Detected (NotDetected); Parainfluenza Virus 1 PCR Not Detected (NotDetected); Parainfluenza Virus 2 PCR Not Detected (NotDetected); Parainfluenza Virus 3 PCR Not Detected (NotDetected); Parainfluenza Virus 4 PCR Not Detected (NotDetected); Respiratory Syncytial VirusPCR Not Detected (NotDetected); Rhinovirus/Enterovirus PCR Not Detected (NotDetected)
[2022-06-19 13:35] LABS: BUN Creatinine Ratio 15.1 (10-20); Blood Urea Nitrogen 134 mg/dl (6-23)
[2022-06-19 13:43] LABS: Echinocytes 1+; Polychromasia 1+
--- NOTE | 2022-06-19 14:07 | CT Scan Report ---
CT SCAN OF THE ABDOMEN AND PELVIS WITHOUT IV CONTRAST CLINICAL HISTORY: Generalized abdominal pain. COMPARISON STUDY: Abdominal CT dated 06/11/2006. TECHNIQUE: CT scan of the abdomen and pelvis is performed from the lung bases to the proximal femora. Images are reviewed in the axial, sagittal, and coronal planes. IV contrast was not administered for this examination. Note that the examination is suboptimal without oral and IV contrast. A dose lower ing technique was utilized adhering to the principles of ALARA. CT DOSE: 935.10 mGy.cm FINDINGS: Lung bases: The heart is enlarged nodes in a moderate to large pericardial effusion. The pericardium is mildly thickened. Emphysematous change is seen at the lung bases. There are scattered calcified gr anulomas. There are small pleural effusions with dependent consolidation. A moderate hiatal hernia is observed. Liver: The unenhanced liver is cirrhotic morphology and heterogeneous in attenuation. There is nodula rity of the hepatic surface contour. There is minimal central intrahepatic biliary ductal dilatation. Gallbladder: Surgically absent noting clips in the gallbladder fossa. Spleen: Normal in size and attenuation. There are calcified splenic granulomas. Pancreas: The unenhanced pancreas is moderately atrophic and grossly unremarkable. Adrenal glands: Bilateral adrenal adenomas measure up to 1.7 cm. Kidneys: The unenhanced kidneys are atrophic and without hydronephrosis. There are no renal calculi i dentified. Bilateral renal cysts measuring up to 4.6 cm. Abdominal vasculature: There is moderate to advanced atherosclerotic calcification and mild ectasia o f the abdominal aorta. Bowel: There is moderate colonic diverticulosis without CT evidence of acute diverticulitis. No bowel obstruction is seen. There is mild to moderate colonic fecal retention. A small duodenal diverticulu m is incidentally noted. The appendix is well-visualized and normal. Question mild wall thickening v ersus underdistention of the right colon. Peritoneum: There is trace perihepatic ascites. No intraperitoneal free air is seen. Lymphadenopathy: None. Pelvic viscera: The prostate gland is enlarged and heterogeneous. There is mild surrounding infiltrat ion. The bladder is distended, and the wall appears thickened/trabeculated indicating chronic outlet obstruction. Skeletal structures: The skeletal structures are osteopenic. There is moderate lumbosacral spondylosi s. Sclerotic change is noted in the sacroiliac joints. No lytic or blastic lesions are seen. IMPRESSION: 1. Cardiomegaly noting a moderate to large pericardial effusion. There is mild pericardial thickening . Correlate clinically for evidence of pericarditis. If warranted this could be further assessed with echocardiography. 2. Small pleural effusions with dependent consolidation. 3. The liver shows morphologic change of cirrhosis. 4. The prostate gland is enlarged with mild surrounding infiltration. Correlate with clinical finding s and urinalysis for evidence of prostatitis. 5. Question wall thickening versus underdistention of the right colon. Correlate clinically for signs of a nonspecific colitis. 6. Colonic diverticulosis without clear CT evidence of acute diverticulitis. 7. Trace perihepatic ascites. 8. Additional findings as above. ACT 112: Negative or not required by law. Electronically signed by: Ronal Leon M.D. 06/19/2022 2:05 PM
[2022-06-19] MEDS ORDERED: SODIUM CHLORIDE 0.9% 250 ML IV PRN (14:19)
[2022-06-19] MEDS ORDERED: CEFEPIME 1,000 MG in SYRINGE 0 ML IV STA (14:21)
--- NOTE | 2022-06-19 14:32 | CT Scan Report ---
CT chest diagnostic wo con CLINICAL HISTORY: 87 years-old Male with chest/abd back pain. Acute chest and abdominal pain TECHNIQUE: Multiaxial CT images of the chest were performed without contrast. A dose lowering techni que was utilized adhering to the principles of ALARA. COMPARISON: CT abdomen and pelvis of same day, chest CT 06/15/2006 FINDINGS: Unremarkable thyroid. Moderate to large sized pericardial effusion measures up to 2.5 cm wi th equivocal pericardial thickening. Decreased attenuation of the cardiac blood pool suggests anemia. Moderate cardiomegaly with moderate coronary artery calcifications. Atherosclerosis of the thoracic aorta without aneurysm. Calcified hilar lymph nodes. Small right with small to moderate left pleural effusions. Moderate pulmonary emphysema. No pneumotho rax. Mild intralobular septal thickening with subsegmental dependent bibasilar atelectasis. There are a few calcified granulomata noted within the left lower lobe. The central airways are patent. Small hiatal hernia. Partially imaged probable cyst in the superior poles of the kidneys. Mild nodula r thickening of the adrenal glands. Unremarkable soft tissues with mild generalized body wall edema. No acute fracture identified. IMPRESSION: 1. Moderate cardiomegaly with mild pulmonary edema, small right and [id number] left pleural ef fusions. 2. Moderate to large pericardial effusion with equivocal pericardial thickening. Correlate clinically to exclude pericarditis. 3. Mild bibasilar consolidation suggestive of compressive atelectasis. 4. Please refer to the CT abdomen and pelvis study of same day for additional findings. ACT 112: Negative or not required by law. Electronically signed by: Juan Gomez M.D. 06/19/2022 2:29 PM
[2022-06-19 14:49] LABS: Immature Retic Fraction 23.6 % (2.3-15.9); Reticulated Hemoglobin 29.9 pg (28.2-36.6); Reticulocyte % 3.2 % (0.5-2.0); Reticulocytes # 0.08 10^6/uL (0.02-0.10)
[2022-06-19] MEDS ORDERED: MAGNESIUM HYDROXIDE SUSP 30 ML UDC PO PRN (14:50)
[2022-06-19] MEDS ORDERED: POLYETHYLENE (MIRALAX) 17 GM PACK PO PRN (14:50)
[2022-06-19] MEDS ORDERED: ONDANSETRON INJ 2 MG/ML 2 ML VIAL IV PRN (14:50)
[2022-06-19] MEDS ORDERED: ALUMINUM/MAGNESIUM SUSP 30 ML UDC PO PRN (14:50)
[2022-06-19] MEDS ORDERED: ACETAMINOPHEN 325 MG TAB PO PRN (14:50)
[2022-06-19 14:53] LABS: Iron 17 mcg/dl (35-175); Transferrin 181 mg/dl (200-360); Unsaturated Iron Binding Cap 212 mcg/dl (155-355)
[2022-06-19 14:53] LABS: Base Excess VBG -13.4 mEq/L; HCO3 VBG 13 mmol/L; Oxygen Saturation VBG 78.5 %; PCO2 VBG 32 mmHg (38-50); PO2 VBG 45 mmHg; pH VBG 7.22 (7.36-7.41)
--- NOTE | 2022-06-19 15:06 | History & Physical Report ---
Date of Service June 19, 2022 Assessment & Plan (1) ESRD (end stage renal disease): (2) Acute on chronic anemia: (3) Weakness: (4) Chronic diastolic heart failure due to valvular disease: (5) Severe aortic valve stenosis: (6) HTN (hypertension): (7) BPH (benign prostatic hyperplasia): (8) Comfort measures only status: Plan 87 y/o with ESRD not interested in Dialysis; transitioning home with Hospice. Admit until logistically arranged. Palliative to continue with symptom management. End-stage renal disease: Acute on chronic anemia: Weakness: Creatinine 8.89; on 06/07/22 it was 6.5 Receives Fe+ infusions; last infusion 06/15; becoming increasingly weaker Baseline Hgb 9-9.6; 7.3 in ED numerous conversation with Nephrology and PCP; patient has decided he does not wish to pursue hemodialysis 05/24/2022: Iron: 36, TIBC: 248, Ferritin: 93; ferritin, transferrin, Fe+, unsaturated IBC pending tpday Pt and family deferred nephrology consultation; pursuing home with hospice Continue home medications for now In order to avoid opioid toxicity with elevated creatinine; ordered Roxicodone SL for air hunger as he was using accessory muscles for breathing. Chronic diastolic heart failure due to valvular disease: Severe aortic valve distal stenosis: HTN: Takes Metoprolol 75 mg PO daily, Hydralazine 100 mg PO TID, and Amlodipine 10 mg PO daily Last ECHO 2020: EF 55% Takes Lasix 160 mg Q AM and 80 mg Q PM CXR: Cardiomegaly with pulmonary vascular congestion, Emphysema with chronic interstitial coarsening and Small pleural effusions with mild bibasilar densities favoring atelectasis. Chest CT: moderate cardiomegaly with mild pulmonary edema, small right and small to moderate left pleural effusions and moderate to large pericardial effusion Patient and family deferred cardiology consultation; pursuing home with hospice Goals of Care; counseling: Lengthy conversation held between patient, myself, 3 adult children, and one of the adult children significant others. We reviewed the patient's progression with his advanced kidney failure over the past 6 months along with how pursuing iron and blood transfusions has affected his quality of life. We reviewed his chest CT and chest x-ray and all of his lab work. We discussed in detail how the body compensates when organs start to fail and noted the challenge with administering blood with progressive pleural and pericardial effusions. I explained pulmonary edema with worsening kidney failure. Patient was adamant that he did not want to pursue hemodialysis and wishes to return home. We discussed hospice in detail including symptom management and focusing on quality of life. Patient indicated he is not fearful of dying and is "ready to go". He states that he does not wish for further specialist evaluation including nephrology or cardiology. We discussed hospice in detail with the logistics of transitioning home with hospice. 2 sons are visiting from [place] for the next 2 weeks and a daughter is local and between the 3 of them can provide / care. We did discuss ESRD end-of-life and what symptom management typically looks like. We discussed metabolic encephalopathy symptoms and shortness of breath that can be relieved with medications. For now patient and his family have decided to pursue hospice at home with [facility] hospice as their agency of choice. (Patient was seen by PCP on 06/15 and had conversation regarding goals of care. Per review of OPT notes: Patient added mainly denies wanting to go to the hospital at all, he says he sick of going to doctor's appointments and he does not care if he does have life-threatening conditions even if he were to without treatment he would not want to go to the emergency department. I offered to draw labs for him today, he declines 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 to have labs drawn. Patient does have do not resuscitate order on his chart, he is very clear that he 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 any further treatment even if it was to be life threatening and he would without treatment.) Today, We discussed symptom management medications including Roxicodone as patient has advanced renal disease and we would want to avoid opioid toxicity. We also discussed terminal secretions to ensure family was aware of this anticipated and expected and normal symptom at end of life. Patient lives in a second floor access home but once inside bathroom and all living areas are on the same level. Patient does not require a hospital bed at this time but does wish to have a bedside commode and shower chair. ED case management aware of the above and will initiate process for transition to hospice. Should patient decline during the interim we will make a full comfort measures transition with discontinuation of current medications. For now, okay to continue with current medications however omit blood work and further diagnostic imaging or specialist consultation. Hospice Diagnosis: ESRD. Will consult palliative medicine purely for continuation of symptom management needs until he can be transitioned home with hospice. Hospice order script provided to ED CM. BPH: -takes Terazosin; continue Disposition: PCP Dr. Lugo CODE STATUS: DNR/DNI VTE prophylaxis: Teds and SCDs for now I spent a total of 88 minutes coordinating, documenting, and providing care for this patient excluding time spent in the performance of separately billed services. All of the aforementioned completed while collaborating with the assigned attending physician for a full treatment plan. Please see their addendum for further details. History of Present Illness Chief Complaint: weakness Primary Care Provider: Roscoe Sagastume DO Mr. Matias is an 87-year-old male that presented to the ED with accompanied by his family with complaints of weakness. Patient has a complex medical history that includes end-stage renal disease without dialysis, chronic diastolic congestive heart failure, anemia of chronic disease, HTN, history of GI bleed, BPH, and anxiety and depression. Numerous conversations have been held with the patient, nephrology and his family indicating the recommendation to pursue hemodialysis however patient has consistently declined pursuing hemodialysis. Patient was admitted October 2021 for chronic anemia requiring blood transfusion. Today hemoglobin 7.3 with baseline hemoglobin approximately 9-9.6 as outpatient. While patient does continue to decline pursuing dialysis he has up until this point been receptive to blood transfusions and iron infusions with his last Fe+ infusion being 06/15/2022. In the ED chest x-ray revealed cardiomegaly with pulmonary vascular congestion and emphysema with chronic interstitial coarsening along with small pleural effusions. Chest CT indicated mild pulmonary edema with small right and small to moderate left pleural effusions with moderate to large pericardial effusion. Patient has uncompensated metabolic acidosis pH 7.22, CO2 33, HCO3 13. Last echocardiogram 2020 with an EF 55%. Patient has been consulted with cardiology and nephrology with conservative medicinal management however appears to be reaching the maximum dosing of these medications. Review of outpatient chart conversation with patient's PCP there has been conversation about him avoiding inpatient hospitalizations and the patient has indicated that he is no longer interested in going to doctor appointments and has full understanding that he has a life-threatening condition and is understanding that he would without continue treatment. Patient has been a documented DNR/DNI. Pt is sitting upright in his hospital bed and able to speak in complete sentences but is using accessory muscles for breathing. He denies pain. Pt denies headache, dizziness, visual or auditory changes, abdominal pain, urinary changes, recent falls or trauma. He states that he is urinating daily and has a current Coppola catheter and that is producing clear yellow urine. Lengthy conversation held between patient, myself, 3 adult children, and one of the adult children significant others. We reviewed the patient's progression with his advanced kidney failure over the past 6 months along with how pursuing iron and blood transfusions has affected his quality of life. We reviewed his chest CT and chest x-ray and all of his lab work. We discussed in detail how the body compensates when organs start to fail and noted the challenge with administering blood with progressive pleural and pericardial effusions. I explained pulmonary edema with worsening kidney failure. Patient was adamant that he did not want to pursue hemodialysis and wishes to return home. We discussed hospice in detail including symptom management and focusing on quality of life. Patient indicated he is not fearful of dying and is "ready to go". He states that he does not wish for further specialist evaluation including nephrology or cardiology. We discussed hospice in detail with the logistics of transitioning home with hospice. 2 sons are visiting from [place] for the next 2 weeks and a daughter is local and between the 3 of them can provide / care. We did discuss ESRD end-of-life and what symptom management typically looks like. We discussed metabolic encephalopathy symptoms and shortness of breath that can be relieved with medications. For now patient and his family have decided to pursue hospice at home with [facility] hospice as their agency of choice. We discussed symptom management medications including Roxicodone as patient has advanced renal disease and we would want to avoid opioid toxicity. We also discussed terminal secretions to ensure family was aware of this anticipated and expected and normal symptom at end of life. Patient lives in a second floor access home but once inside bathroom and all living areas are on the same level. Patient does not require a hospital bed at this time but does wish to have a bedside commode and shower chair. ED case management aware of the above and will initiate process for transition to hospice. Should patient decline during the interim we will make a full comfort measures transition with discontinuation of current medications. For now, okay to continue with current medications however omit blood work and further diagnostic imaging or specialist consultation. Hospice Diagnosis: ESRD. Will consult palliative medicine purely for continuation of symptom management needs until he can be transitioned home with hospice. Hospice order script provided to ED CM. Patient will be admitted for until transition home with hospice is fully arranged. Please see A/P for further details. Allergies Allergy/AdvReac Type Severity Reaction Status Date / Time No Known Allergies Allergy Unknown Verified 10/27/21 10:39 Home Medications Medication Instructions Recorded Confirmed Type acetaminophen 500 mg capsule 1,000 mg PO TID PRN Pain 10/26/21 06/19/22 History alprazolam 1 mg tablet 1 mg PO AMHS 10/26/21 06/19/22 History amlodipine 10 mg tablet (Norvasc) 10 mg PO DAILY 10/26/21 06/19/22 History aspirin 81 mg tablet,delayed 81 mg PO DAILY 10/26/21 06/19/22 History release buspirone 15 mg tablet 22.5 mg PO BID 10/26/21 06/19/22 History cholecalciferol (vitamin D3) 25 25 mcg PO DAILY 10/26/21 06/19/22 History mcg (1,000 unit) capsule cyanocobalamin (vitamin B-12) 1,000 mcg PO QAM 10/26/21 06/19/22 History 1,000 mcg tablet famotidine 10 mg tablet 10 mg PO DAILY 10/26/21 06/19/22 History fluticasone propionate 50 2 spray intranasal DAILY 10/26/21 06/19/22 History mcg/actuation nasal spray,suspension furosemide 80 mg tablet 80 mg PO QDL 10/26/21 06/19/22 History furosemide 80 mg tablet (Lasix) 160 mg PO QAM 10/26/21 06/19/22 History metoprolol succinate 50 mg 75 mg PO DAILY 10/26/21 06/19/22 History tablet,extended release 24 hr mirtazapine 45 mg tablet 45 mg PO HS 10/26/21 06/19/22 History multivitamin 1 tab PO DAILY 10/26/21 06/19/22 History potassium chloride 10 mEq 20 meq PO DAILY 10/26/21 06/19/22 History tablet,extended release psyllium husk 3.4 gram/5.4 gram 1 tbsp PO BID 10/26/21 06/19/22 History oral powder (Metamucil) sennosides 8.6 mg-docusate sodium 1 tab-cap PO DAILY 10/26/21 06/19/22 History 50 mg tablet (Senna Plus) terazosin 10 mg capsule 20 mg PO HS 10/26/21 06/19/22 History hydralazine 50 mg tablet 100 mg PO TID #180 tabs 10/28/21 06/19/22 Rx clonidine HCl 0.1 mg tablet 0.1 mg PO TID 06/19/22 06/19/22 History Past Med/Surg History Medical History (Updated 06/19/22 @ 20:59 by Anita Cruz, ) BPH (benign prostatic hyperplasia) Chronic anemia Chronic diastolic heart failure due to valvular disease CKD (chronic kidney disease), stage V HTN (hypertension) Moderate aortic valve regurgitation Severe aortic valve stenosis Weakness Surgical History H/O sinus surgery History of carpal tunnel surgery History of cataract surgery History of cholecystectomy History of nasal surgery History of tonsillectomy and adenoidectomy Family History Brother Heart disorder Social History Smoking Status: Current every day smoker Hx Alcohol Use: No 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: Voice Beliefs That Will Affect Care: None Current Living Situation: Alone Feels Safe at Home: Yes Assistive Devices: Glasses Review of Systems Review of Systems: Neuro: (-) Falls, trauma, slurred speech HEENT: (-) HYMAN, dizziness, dysphagia, visual or auditory changes CV: (-) CP, palpitations, swelling Resp: (-) SOB GI: (-) appetite changes, N/V/D, bowel changes : (-) urinary changes Skin: (-) rashes Psych: (-) anxiety, depression Physical Exam Physical Exam: Neuro: AAOx4, PERRLA, no aphagia, memory changes, CNII-XII grossly intact HEENT: head normocephalic, moist mucus membranes CV: S1/S2, (-) M/G/R, (-) edema, cap refill < 3 seconds Resp: Lungs CTA in all blood. On RA - placing on supplemental O2. GI: Abdomen large S/NT/ND, Ax4 bowel sounds, (-) CVA tenderness Musculoskeletal: 4/5 B/L UE strength, 3/5 B/L LE strength. No gait disturbance Skin: (-) rashes , (-) erythema. Psych: euthymic mood Results & Data Results & Data Vital Signs (Past 12 Hours) Vital Signs Temp Pulse Resp BP Pulse Ox O2 Del Method 06/19/22 14:00 78 17 157/71 H 92 06/19/22 13:00 71 17 156/71 H 92 06/19/22 12:30 64 18 154/85 H 93 06/19/22 12:13 72 18 163/74 H 92 06/19/22 11:50 73 06/19/22 11:30 75 21 92 06/19/22 11:36 92 Room Air 06/19/22 10:28 36.6 C 78 20 150/67 H 93 Room Air Laboratory Results Short CBC 06/19/22 Range/Units 11:27 WBC 12.12 H (4.8-10.8) K/ul Hgb 7.3 L (14.0-18.0) g/dl Hct 22.9 L (42.0-52.0) % Plt Count 326 (130-400) K/uL BMP 06/19/22 11:27 Sodium 130 L Potassium 3.7 Chloride 101 Carbon Dioxide 12 L BUN 134 H Creatinine 8.89 H* Glucose 120 H Calcium 8.3 L Liver Function 06/19/22 Range/Units 11:27 Total Bilirubin 0.3 (0.2-1.0) mg/dl AST 9 L (13-39) U/L ALT 11 (7-52) U/L Alkaline Phosphatase 67 (34-104) U/L Albumin 3.4 (3.4-5.0) gm/dl Diagnostic Findings Chest X-Ray 06/19/22 10:34 XR chest 1V not portable HISTORY: 87 years-old Male Sepsis acute sepsis COMPARISON: 10/27/2021 TECHNIQUE: AP view of the chest FINDINGS: Cardiac silhouette is enlarged. Pulmonary vascular congestion. Tortuosity of the thoracic aorta. No pneumothorax, large pleural effusion or lobar airspace consolidation. Small pleural effusions with mild bibasilar densities. Degenerative changes of the shoulders and spine. Pulmonary emphysema with chronic interstitial coarsening. IMPRESSION: 1. Cardiomegaly with pulmonary vascular congestion. 2. Emphysema with chronic interstitial coarsening. 3. Small pleural effusions with mild bibasilar densities favoring atelectasis. ACT 112: Negative or not required by law. The above report was generated using voice recognition software. It may contain grammatical, syntax or spelling errors. Electronically signed by: Juan Gomez M.D. 06/19/2022 11:[address] 06/19/22 11:30 CT SCAN OF THE BRAIN WITHOUT IV CONTRAST CLINICAL HISTORY: Dizziness. Change in mental status. COMPARISON STUDY: CT of the brain dated 06/05/2006. TECHNIQUE: Unenhanced axial CT scan of the brain is performed from the vertex to the skull base. A dose lowering technique was utilized adhering to the principles of ALARA. CT DOSE: 537.48 mGy.cm FINDINGS: Brain parenchyma: There is age-related involutional change noting mild to moderate subcortical and periventricular microangiopathic disease. There is no hemorrhage, mass effect, or evidence of acute territorial ischemia by CT criteria. Liu-white matter differentiation is preserved. No extra-axial fluid collection is seen. 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 Ventricles, sulci, cisterns: Prominent secondary to involutional change. Intracranial vasculature: There is atherosclerotic calcification of the cavernous carotid and vertebral arteries. Calvarium: Unremarkable. Sinuses and mastoids: There is evidence of previous paranasal sinus surgery. The visualized paranasal sinuses are clear. There are trace mastoid effusions. Orbits: The bony orbits are grossly intact. There are bilateral ocular lens implants. IMPRESSION: There is no hemorrhage, mass effect, or evidence of acute territorial ischemia by CT criteria. ACT 112: Negative or not required by law. Electronically signed by: Ronal Leon M.D. 06/19/2022 11:58 AM Abdomen/Pelvis CT 06/19/22 12:56 CT SCAN OF THE ABDOMEN AND PELVIS WITHOUT IV CONTRAST CLINICAL HISTORY: Generalized abdominal pain. COMPARISON STUDY: Abdominal CT dated 06/11/2006. TECHNIQUE: CT scan of the abdomen and pelvis is performed from the lung bases to the proximal femora. Images are reviewed in the axial, sagittal, and coronal planes. IV contrast was not administered for this examination. Note that the examination is suboptimal without oral and IV contrast. A dose lowering technique was utilized adhering to the principles of ALARA. CT DOSE: 935.10 mGy.cm FINDINGS: Lung bases: The heart is enlarged nodes in a moderate to large pericardial effusion. The pericardium is mildly thickened. Emphysematous change is seen at the lung bases. There are scattered calcified granulomas. There are small pleural effusions with dependent consolidation. A moderate hiatal hernia is observed. Liver: The unenhanced liver is cirrhotic morphology and heterogeneous in attenuation. There is nodularity of the hepatic surface contour. There is minimal central intrahepatic biliary ductal dilatation. Gallbladder: Surgically absent noting clips in the gallbladder fossa. Spleen: Normal in size and attenuation. There are calcified splenic granulomas. Pancreas: The unenhanced pancreas is moderately atrophic and grossly unremarkable. Adrenal glands: Bilateral adrenal adenomas measure up to 1.7 cm. Kidneys: The unenhanced kidneys are atrophic and without hydronephrosis. There are no renal calculi identified. Bilateral renal cysts measuring up to 4.6 cm. Abdominal vasculature: There is moderate to advanced atherosclerotic calcification and mild ectasia of the abdominal aorta. Bowel: There is moderate colonic diverticulosis without CT evidence of acute diverticulitis. No bowel obstruction is seen. There is mild to moderate colonic fecal retention. A small duodenal diverticulum is incidentally noted. The appendix is well-visualized and normal. Question mild wall thickening versus underdistention of the right colon. Peritoneum: There is trace perihepatic ascites. No intraperitoneal free air is seen. Lymphadenopathy: None. Pelvic viscera: The prostate gland is enlarged and heterogeneous. There is mild surrounding infiltration. The bladder is distended, and the wall appears thickened/trabeculated indicating chronic outlet obstruction. Skeletal structures: The skeletal structures are osteopenic. There is moderate lumbosacral spondylosis. Sclerotic change is noted in the sacroiliac joints. No lytic or blastic lesions are seen. IMPRESSION: 1. Cardiomegaly noting a moderate to large pericardial effusion. There is mild pericardial thickening. Correlate clinically for evidence of pericarditis. If warranted this could be further assessed with echocardiography. 2. Small pleural effusions with dependent consolidation. 3. The liver shows morphologic change of cirrhosis. 4. The prostate gland is enlarged with mild surrounding infiltration. Correlate with clinical findings and urinalysis for evidence of prostatitis. 5. Question wall thickening versus underdistention of the right colon. Correlate clinically for signs of a nonspecific colitis. 6. Colonic diverticulosis without clear CT evidence of acute diverticulitis. 7. Trace perihepatic ascites. 8. Additional findings as above. ACT 112: Negative or not required by law. Electronically signed by: Ronal Leon M.D. 06/19/2022 2:[address] 06/19/22 12:56 CT chest diagnostic wo con CLINICAL HISTORY: 87 years-old Male with chest/abd back pain. Acute chest and abdominal pain TECHNIQUE: Multiaxial CT images of the chest were performed without contrast. A dose lowering technique was utilized adhering to the principles of ALARA. COMPARISON: CT abdomen and pelvis of same day, chest CT 06/15/2006 FINDINGS: Unremarkable thyroid. Moderate to large sized pericardial effusion measures up to 2.5 cm with equivocal pericardial thickening. Decreased attenuation of the cardiac blood pool suggests anemia. Moderate cardiomegaly with moderate coronary artery calcifications. Atherosclerosis of the thoracic a millie without aneurysm. Calcified hilar lymph nodes. Small right with small to moderate left pleural effusions. Moderate pulmonary emphysema. No pneumothorax. Mild intralobular septal thickening with subsegmental dependent bibasilar atelectasis. There are a few calcified granulomata noted within the left lower lobe. The central airways are patent. Small hiatal hernia. Partially imaged probable cyst in the superior poles of the kidneys. Mild nodular thickening of the adrenal glands. Unremarkable soft tissues with mild generalized body wall edema. No acute fracture identified. IMPRESSION: 1. Moderate cardiomegaly with mild pulmonary edema, small right and [id number] left pleural effusions. 2. Moderate to large pericardial effusion with equivocal pericardial thickening. Correlate clinically to exclude pericarditis. 3. Mild bibasilar consolidation suggestive of compressive atelectasis. 4. Please refer to the CT abdomen and pelvis study of same day for additional findings. ACT 112: Negative or not required by law. Electronically signed by: Juan Gomez M.D. 06/19/2022 2:29 PM Code Status & VTE Plan Code Status DNR/DNI in the event of cardiac or respiratory arrest VTE Prophylaxis Plan VTE Prophylaxis will be ordered: Yes Supervising Physician Co-Signing Physician Notes I have seen and examined the patient and have discussed the case with the provider above. I agree with the assessment and plan as stated. This patient is 87 yo with ESRD who presents with at least two concerns for acute hemodialysis including hypervolemia and acidosis. He also has a worsening anemia with an H/H of 7.3/23. He is of sound mind and is opting for hospice at home. He is supported by family in this decision as noted above. He denies significant pain or nausea at this time. I separately examined the patient and spoke with his family who are on the same page with the plan. On exam he is comfortable with some lethargy to his appearance. Memory intact, speech is clear and he is oriented. He has generalized swelling and 3+ pitting edema of the lower extremities. Breath sounds are diminished at the bases. S1/2 heard with 3/6 KAUSHAL at the right sternal border. He is not exhibiting respiratory distress but oxygen saturation is low normal on the monitor. Oxygen was placed for comfort. Labs and imaging was reviewed. Agree with continued Lasix and metoprolol for comfort and other palliative medications as ordered above. Family will be home with him and Hospice script was sent for [facility] by ER case management. Will plan to send home tomorrow as long as services are in place. Cont comfort care measures. DO Anthony
[2022-06-19 15:13] LABS: Lyme Ab IgG w/WB Rflx Negative (Negative); Lyme Ab IgM w/WB Rflx Negative (Negative)
[2022-06-19 15:20] LABS: Appearance Urine Clear (Clear); Bilirubin Urine Negative (Negative); Blood Urine Negative (Negative); Glucose Urine UA Negative (Negative); Ketones Urine Negative (Negative); Leukocyte Esterase Urine Negative (Negative); Nitrite Urine Negative (Negative); Protein Urine 3+ (Negative); Specific Gravity Urine 1.015 (1.000-1.030); Urobilinogen Urine Negative (Negative)
[2022-06-19 15:29] LABS: Color Urine Straw
--- NOTE | 2022-06-19 15:40 | Emergency Department Note ---
Impression & Plan Acute on chronic renal failure, Metabolic acidosis, Anemia, Weakness, Chronic diastolic heart failure due to valvular disease ED Provider Note NAME: KULDIP ANSARI AGE: 87 SEX: M ARRIVES VIA: Walk-In INFORMANT: Patient ED PROVIDER(S): Vignesh Figueroa MD CHIEF COMPLAINT: Weakness PLAN: Disposition: Admit MEDICAL DECISION MAKING: The patient is an 87-year-old gentleman with a past medical history of stage V CKD where he reports he has established with his providers that he is not interested in dialysis who presents to the emergency department, accompanied by family for evaluation of generalized weakness, mild confusion and dizziness over the past couple of weeks where he became much worse today. He denies any fevers. He reports mild cough and congestion. Denies any vomiting or diarrhea or urinary symptoms. He feels he is urinating as he normally does. He does admit that he is probably not eating or drinking well. On arrival to the emergency department the patient is fatigued appearing no distress, afebrile stable vital signs. He has dry mucous membranes. However he also has 2+ bilateral lower extremity edema. He exhibits generalized weakness without focal neurologic deficits. EKG without overt acute ischemia. CXR demonstrates vascular congestion with chronic interstitial thickening. WBC 12K nonspecific and without left shift. H/H 7.3/22.9 which is decreased from hemoglobin of 9 last month in the [facility] system. Platelets within normal limits. Chemistry demonstrates anion gap metabolic acidosis with anion gap of 17 and bicarbonate of 12 in setting of acute on chronic renal insufficiency with creatinine up to 8.8 where previously he had been ~6. VBG demonstrates pH of 7.22 with a component of respiratory compensation with PCO2 of 32. LFTs without significant abnormality. High-sensitivity troponin 40.7, nonspecific. Lipase not elevated. Procalcitonin is not significantly elevated. UA without evidence of infection. Respiratory viral panel/bio fire was negative. Given patient's worsening renal function which likely is contributing patient's symptoms as well as a suspected component of urinary tract infection based on CT imaging. Patient and family agree with plan for admission. Type and cross ordered to hold 2 units PRBCs. Empiric treatment for possible UTI initiated with cefepime. Case was discussed with Jumana Bhandari PAC[facility] who will evaluate the patient for admission. Of note, upon further evaluation by admitting team decision was made to transition patient to hospice care. Further management per admitting team. Triage Nursing notes reviewed and agree them. Prior/outside medical records reviewed Vital Signs: reviewed Differential diagnosis: Infection, dehydration, metabolic abnormality, hypo/hyperglycemia, electrolyte disturbance, anemia, hypoxia, cardiac sources, intracerebral event, toxicologic, neurologic, as well as other pathologies. ER treatment provided: See below. Diagnostics interpreted by me: ECG: Sinus rhythm with first-degree AV block, 78 bpm, LVH with repolarization abnormality, no overt ST elevation. QTc 465, QRS 110. Cardiac Monitoring: An order for continuous cardiac monitoring was placed and demonstrated sinus rhythm with first-degree AV block, 78 bpm, no ectopy. Laboratory studies: See below Imaging studies: See below Consultation(s): Case was discussed with Jumana Bhandari PAC, with Dr. Anthony Strickland hospitalist who will evaluate the patient for admission. HPI: The patient is an 87-year-old gentleman with a past medical history of stage V CKD where he reports he has established with his providers that he is not interested in dialysis who presents to the emergency department, accompanied by family for evaluation of generalized weakness, mild confusion and dizziness over the past couple of weeks where he became much worse today. He denies any fevers. He reports mild cough and congestion. Denies any vomiting or diarrhea or urinary symptoms. He feels he is urinating as he normally does. He does admit that he is probably not eating or drinking well. ROS: See above HPI for pertinent positives & negatives. A total of 10 systems reviewed and were otherwise negative. VITALS:See Below PHYSICAL EXAMINATION: GENERAL: Awake, alert, fatigued-appearing, in no distress HENT: Normocephalic, atraumatic. Oropharynx with dry mucous membranes and o therwise unremarkable. EYES: Normal conjunctiva. Sclera non-icteric. NECK: Supple. No nuchal rigidity. FROM. No JVD. RESPIRATORY: Clear to auscultation. CARDIAC: Regular rate, normal rhythm. Extremities warm and well perfused. Pulses equal. ABDOMEN: Soft, non-distended. No tenderness to palpation. No rebound or guarding. No masses. RECTAL: Deferred. MUSCULOSKELETAL: Chest examination reveals no tenderness. The back is symmetrical on inspection without obvious abnormality. There is no CVA tendern ess to palpation. No joint edema. LOWER EXTREMITIES: Calves are equal size bilaterally and non-tender. 2+ BLE edema. No discoloration. NEURO: Generalized weakness with 4/5 strength and otherwise no focal neurologic deficits. SKIN: No rash or jaundice noted. ED COURSE: Critical Care: I have personally spent greater than 35 minutes of critical care time in the direct management of this patient. This includes bedside care, interpretation of diagnostic studies, and testing, discussion with consultants, patient, and family members, and other required patient management activities. This 35 minutes is in excess of all separately billable procedures. Vignesh Figueroa MD Past Med/Surg History Medical History BPH (benign prostatic hyperplasia) Chronic anemia Chronic diastolic heart failure due to valvular disease CKD (chronic kidney disease), stage V HTN (hypertension) Moderate aortic valve regurgitation Severe aortic valve stenosis Weakness Surgical History H/O sinus surgery History of carpal tunnel surgery History of cataract surgery History of cholecystectomy History of nasal surgery History of tonsillectomy and adenoidectomy Family History Brother Heart disorder Social History Smoking Status: Never smoker Hx Alcohol Use: No Hx Substance Use: No Preferred Language: Malawian Communication Ability: Effective Optimization Analyst Required: No Beliefs That Will Affect Care: None Current Living Situation: Family Current Living Situation Comment: lives with daughter who is POA Other Information That Helps Us Care for You: No Feels Safe at Home: Yes Safety Concerns: Feels Safe At This Time Assistive Devices: None Allergies Allergies Allergy/AdvReac Type Severity Reaction Status Date / Time No Known Allergies Allergy Unknown Verified 10/27/21 10:39 Home Meds Home Medications Medication Instructions Recorded Confirmed acetaminophen 500 mg capsule 1,000 mg PO TID PRN Pain 10/26/21 06/19/22 alprazolam 1 mg tablet 1 mg PO AMHS 10/26/21 06/19/22 amlodipine 10 mg tablet (Norvasc) 10 mg PO DAILY 10/26/21 06/19/22 aspirin 81 mg tablet,delayed 81 mg PO DAILY 10/26/21 06/19/22 release buspirone 15 mg tablet 22.5 mg PO BID 10/26/21 06/19/22 cholecalciferol (vitamin D3) 25 25 mcg PO DAILY 10/26/21 06/19/22 mcg (1,000 unit) capsule cyanocobalamin (vitamin B-12) 1,000 mcg PO QAM 10/26/21 06/19/22 1,000 mcg tablet famotidine 10 mg tablet 10 mg PO DAILY 10/26/21 06/19/22 fluticasone propionate 50 2 spray intranasal DAILY 10/26/21 06/19/22 mcg/actuation nasal spray,suspension furosemide 80 mg tablet 80 mg PO QDL 10/26/21 06/19/22 furosemide 80 mg tablet (Lasix) 160 mg PO QAM 10/26/21 06/19/22 metoprolol succinate 50 mg 75 mg PO DAILY 10/26/21 06/19/22 tablet,extended release 24 hr mirtazapine 45 mg tablet 45 mg PO HS 10/26/21 06/19/22 multivitamin 1 tab PO DAILY 10/26/21 06/19/22 potassium chloride 10 mEq 20 meq PO DAILY 10/26/21 06/19/22 tablet,extended release psyllium husk 3.4 gram/5.4 gram 1 tbsp PO BID 10/26/21 06/19/22 oral powder (Metamucil) sennosides 8.6 mg-docusate sodium 1 tab-cap PO DAILY 10/26/21 06/19/22 50 mg tablet (Senna Plus) terazosin 10 mg capsule 20 mg PO HS 10/26/21 06/19/22 clonidine HCl 0.1 mg tablet 0.1 mg PO TID 06/19/22 06/19/22 Previous Rx's Medication Instructions Recorded hydralazine 50 mg tablet 100 mg PO TID #180 tabs 10/28/21 atropine 1 % eye drops 4 drp sublingual Q4H #30 mL 06/20/22 oxycodone 5 mg/5 mL oral solution 5 mg (5 mL) PO Q6H PRN pain #200 mL 06/20/22 Results & Data (ED) Vital Signs Vital Signs - 24 hr 06/19/22 10:28 06/19/22 11:36 06/19/22 11:30 Temperature 36.6 C Temperature Source Oral Pulse Rate 78 75 Pulse Rate from SpO2 Sensor 76 Respiratory Rate 20 21 Respiratory Effort / Characteristics Non-Labored Respiratory Depth Normal Blood Pressure 150/67 H Blood Pressure Mean 94 Pulse Oximetry 93 92 92 Oxygen Delivery Method Room Air Room Air Sepsis Recent Fever Within 48 Hours No Sepsis New/Unexplained Change in Mental Status Yes Sepsis Action Taken by Nursing No Action Required 06/19/22 11:50 06/19/22 12:13 06/19/22 12:30 Temperature Temperature Source Pulse Rate 73 72 64 Pulse Rate from SpO2 Sensor 75 67 Respiratory Rate 18 18 Respiratory Effort / Characteristics Respiratory Depth Blood Pressure 163/74 H 154/85 H Blood Pressure Mean 103 108 Pulse Oximetry 92 93 Oxygen Delivery Method Sepsis Recent Fever Within 48 Hours Sepsis New/Unexplained Change in Mental Status Sepsis Action Taken by Nursing 06/19/22 13:00 06/19/22 14:00 06/19/22 14:40 Temperature Temperature Source Pulse Rate 71 78 77 Pulse Rate from SpO2 Sensor 70 73 76 Respiratory Rate 17 17 20 Respiratory Effort / Characteristics Respiratory Depth Blood Pressure 156/71 H 157/71 H Blood Pressure Mean 99 99 Pulse Oximetry 92 92 94 Oxygen Delivery Method Sepsis Recent Fever Within 48 Hours Sepsis New/Unexplained Change in Mental Status Sepsis Action Taken by Nursing Laboratory Data 06/19/22 11:27 06/19/22 11:27 Lab Results 06/19/22 06/19/22 06/19/22 Range/Units 05:17 11:27 11:27 WBC 12.12 H (4.8-10.8) K/ul RBC 2.36 L (4.70-6.10) M/uL Hgb 7.3 L (14.0-18.0) g/dl Hct 22.9 L (42.0-52.0) % MCV 97.0 (80.0-100.0) fL MCH 30.9 (25.0-34.0) pg MCHC 31.9 L (32.0-36.0) g/dL RDW Std Deviation 63.8 H (36.4-46.3) fL RDW Coeff of Augustina 18.3 H (11.5-14.5) % Plt Count 326 (130-400) K/uL MPV 11.2 (9.4-12.4) fL Immature Gran % (Auto) 0.7 % Neut % (Auto) 89.1 % Lymph % (Auto) 3.5 % [place] % (Auto) 6.3 % Eos % (Auto) 0.2 % Baso % (Auto) 0.2 % Reticulocyte % (Auto) 3.2 H (0.5-2.0) % Neut # (Auto) 10.79 H (1.40-6.50) K/uL Lymph # (Auto) 0.43 L (1.2-3.4) K/uL [place] # (Auto) 0.76 H (0.11-0.59) K/uL Eos # (Auto) 0.03 (0-0.50) K/uL Baso # (Auto) 0.02 (0-0.2) K/uL Reticulocyte # 0.08 (0.02-0.10) 10^6/uL Immature Gran # (Auto) 0.09 (0.01-0.20) K/uL Polychromasia 1+ Echinocytes 1+ Immature Retic Fraction 23.6 H (2.3-15.9) % Retic Hgb Content 29.9 (28.2-36.6) pg PT 11.2 (9.0-12.0) Seconds INR 1.1 (0.9-1.1) APTT 31.3 H (21.0-31.0) Seconds PTT Ratio 1.1 VBG pH (7.36-7.41) VBG pCO2 (38-50) mmHg VBG pO2 mmHg VBG HCO3 mmol/L VBG O2 Saturation % VBG Base Excess mEq/L Sodium (136-145) mmol/L Potassium (3.5-5.1) mmol/L Chloride (98-107) mmol/L Carbon Dioxide (21-32) mmol/L Anion Gap (3-11) BUN (6-23) mg/dl Creatinine (0.6-1.4) mg/dl Est Cr Clr Drug Dosing Est GFR ( Amer) ml/min Est GFR (Non-Af Amer) ml/min BUN/Creatinine Ratio (10-20) Glucose (70-99(Fasting)) mg/dl Lactate 0.4 (0.4-2.0) mmol/L Calcium (8.6-10.3) mg/dl Phosphorus (2.5-4.9) mg/dl Magnesium (1.7-2.4) mg/dl Iron (35-175) mcg/dl Unsaturated IBC (155-355) mcg/dl Transferrin (200-360) mg/dl Ferritin (8-388) ng/ml Total Bilirubin (0.2-1.0) mg/dl AST (13-39) U/L ALT (7-52) U/L Alkaline Phosphatase (34-104) U/L Troponin I High Sens (0-20) pg/ml Total Protein (6.0-8.3) gm/dl Albumin (3.4-5.0) gm/dl Globulin (2.5-4.0) gm/dl Albumin/Globulin Ratio (0.9-2) Lipase (11-82) U/L Vitamin B12 (180-914) pg/ml Procalcitonin (0-0.5) ng/ml Adenovirus (PCR) (NotDetected) B. pertussis DNA (PCR) (NotDetected) B.parapertussis DNA PCR (NotDetected) Lyme Disease IgG Ab (Negative) Lyme Disease IgM Ab (Negative) C. pneumoniae DNA (PCR) (NotDetected) Coronavirus OC43 (PCR) (NotDetected) Coronavirus HKU1 (PCR) (NotDetected) Coronavirus 229E (PCR) (NotDetected) SARS-CoV-2 (PCR) (NotDetected) Coronavirus NL63 (PCR) (NotDetected) Human Metapneumovir PCR (NotDetected) Influenza Type A (PCR) (NotDetected) Influenza Type B (PCR) (NotDetected) M. pneumoniae (PCR) (NotDetected) Parainfluenza 1 (PCR) (NotDetected) Parainfluenza 2 (PCR) (NotDetected) Parainfluenza 3 (PCR) (NotDetected) Parainfluenza 4 (PCR) (NotDetected) RSV (PCR) (NotDetected) Entero/Rhino (PCR) (NotDetected) Blood Type Antibody Screen Crossmatch 06/19/22 06/19/22 06/19/22 Range/Units 11:27 11:27 11:27 WBC (4.8-10.8) K/ul RBC (4.70-6.10) M/uL Hgb (14.0-18.0) g/dl Hct (42.0-52.0) % MCV (80.0-100.0) fL MCH (25.0-34.0) pg MCHC (32.0-36.0) g/dL RDW Std Deviation (36.4-46.3) fL RDW Coeff of Augustina (11.5-14.5) % Plt Count (130-400) K/uL MPV (9.4-12.4) fL Immature Gran % (Auto) % Neut % (Auto) % Lymph % (Auto) % [place] % (Auto) % Eos % (Auto) % Baso % (Auto) % Reticulocyte % (Auto) (0.5-2.0) % Neut # (Auto) (1.40-6.50) K/uL Lymph # (Auto) (1.2-3.4) K/uL [place] # (Auto) (0.11-0.59) K/uL Eos # (Auto) (0-0.50) K/uL Baso # (Auto) (0-0.2) K/uL Reticulocyte # (0.02-0.10) 10^6/uL Immature Gran # (Auto) (0.01-0.20) K/uL Polychromasia Echinocytes Immature Retic Fraction (2.3-15.9) % Retic Hgb Content (28.2-36.6) pg PT (9.0-12.0) Seconds INR (0.9-1.1) APTT (21.0-31.0) Seconds PTT Ratio VBG pH (7.36-7.41) VBG pCO2 (38-50) mmHg VBG pO2 mmHg VBG HCO3 mmol/L VBG O2 Saturation % VBG Base Excess mEq/L Sodium 130 L (136-145) mmol/L Potassium 3.7 (3.5-5.1) mmol/L Chloride 101 (98-107) mmol/L Carbon Dioxide 12 L (21-32) mmol/L Anion Gap 17 H (3-11) BUN 134 H (6-23) mg/dl Creatinine 8.89 H* (0.6-1.4) mg/dl Est Cr Clr Drug Dosing Not Reportable Est GFR ( Amer) 5.5 ml/min Est GFR (Non-Af Amer) 4.7 ml/min BUN/Creatinine Ratio 15.1 (10-20) Glucose 120 H (70-99(Fasting)) mg/dl Lactate (0.4-2.0) mmol/L Calcium 8.3 L (8.6-10.3) mg/dl Phosphorus 7.4 H (2.5-4.9) mg/dl Magnesium 2.3 (1.7-2.4) mg/dl Iron 17 L (35-175) mcg/dl Unsaturated IBC 212 (155-355) mcg/dl Transferrin 181 L (200-360) mg/dl Ferritin 277.9 (8-388) ng/ml Total Bilirubin 0.3 (0.2-1.0) mg/dl AST 9 L (13-39) U/L ALT 11 (7-52) U/L Alkaline Phosphatase 67 (34-104) U/L Troponin I High Sens 48.7 H (0-20) pg/ml Total Protein 6.2 (6.0-8.3) gm/dl Albumin 3.4 (3.4-5.0) gm/dl Globulin 2.8 (2.5-4.0) gm/dl Albumin/Globulin Ratio 1.2 (0.9-2) Lipase 70 (11-82) U/L Vitamin B12 > 1500 H (180-914) pg/ml Procalcitonin 0.14 (0-0.5) ng/ml Adenovirus (PCR) (NotDetected) B. pertussis DNA (PCR) (NotDetected) B.parapertussis DNA PCR (NotDetected) Lyme Disease IgG Ab (Negative) Lyme Disease IgM Ab (Negative) C. pneumoniae DNA (PCR) (NotDetected) Coronavirus OC43 (PCR) (NotDetected) Coronavirus HKU1 (PCR) (NotDetected) Coronavirus 229E (PCR) (NotDetected) SARS-CoV-2 (PCR) (NotDetected) Coronavirus NL63 (PCR) (NotDetected) Human Metapneumovir PCR (NotDetected) Influenza Type A (PCR) (NotDetected) Influenza Type B (PCR) (NotDetected) M. pneumoniae (PCR) (NotDetected) Parainfluenza 1 (PCR) (NotDetected) Parainfluenza 2 (PCR) (NotDetected) Parainfluenza 3 (PCR) (NotDetected) Parainfluenza 4 (PCR) (NotDetected) RSV (PCR) (NotDetected) Entero/Rhino (PCR) (NotDetected) Blood Type Antibody Screen Crossmatch 06/19/22 06/19/22 06/19/22 Range/Units 11:27 12:15 14:35 WBC (4.8-10.8) K/ul RBC (4.70-6.10) M/uL Hgb (14.0-18.0) g/dl Hct (42.0-52.0) % MCV (80.0-100.0) fL MCH (25.0-34.0) pg MCHC (32.0-36.0) g/dL RDW Std Deviation (36.4-46.3) fL RDW Coeff of Augustina (11.5-14.5) % Plt Count (130-400) K/uL MPV (9.4-12.4) fL Immature Gran % (Auto) % Neut % (Auto) % Lymph % (Auto) % [place] % (Auto) % Eos % (Auto) % Baso % (Auto) % Reticulocyte % (Auto) (0.5-2.0) % Neut # (Auto) (1.40-6.50) K/uL Lymph # (Auto) (1.2-3.4) K/uL [place] # (Auto) (0.11-0.59) K/uL Eos # (Auto) (0-0.50) K/uL Baso # (Auto) (0-0.2) K/uL Reticulocyte # (0.02-0.10) 10^6/uL Immature Gran # (Auto) (0.01-0.20) K/uL Polychromasia Echinocytes Immature Retic Fraction (2.3-15.9) % Retic Hgb Content (28.2-36.6) pg PT (9.0-12.0) Seconds INR (0.9-1.1) APTT (21.0-31.0) Seconds PTT Ratio VBG pH (7.36-7.41) VBG pCO2 (38-50) mmHg VBG pO2 mmHg VBG HCO3 mmol/L VBG O2 Saturation % VBG Base Excess mEq/L Sodium (136-145) mmol/L Potassium (3.5-5.1) mmol/L Chloride (98-107) mmol/L Carbon Dioxide (21-32) mmol/L Anion Gap (3-11) BUN (6-23) mg/dl Creatinine (0.6-1.4) mg/dl Est Cr Clr Drug Dosing Est GFR ( Amer) ml/min Est GFR (Non-Af Amer) ml/min BUN/Creatinine Ratio (10-20) Glucose (70-99(Fasting)) mg/dl Lactate (0.4-2.0) mmol/L Calcium (8.6-10.3) mg/dl Phosphorus (2.5-4.9) mg/dl Magnesium (1.7-2.4) mg/dl Iron (35-175) mcg/dl Unsaturated IBC (155-355) mcg/dl Transferrin (200-360) mg/dl Ferritin (8-388) ng/ml Total Bilirubin (0.2-1.0) mg/dl AST (13-39) U/L ALT (7-52) U/L Alkaline Phosphatase (34-104) U/L Troponin I High Sens (0-20) pg/ml Total Protein (6.0-8.3) gm/dl Albumin (3.4-5.0) gm/dl Globulin (2.5-4.0) gm/dl Albumin/Globulin Ratio (0.9-2) Lipase (11-82) U/L Vitamin B12 (180-914) pg/ml Procalcitonin (0-0.5) ng/ml Adenovirus (PCR) Not Detected (NotDetected) B. pertussis DNA (PCR) Not Detected (NotDetected) B.parapertussis DNA PCR Not Detected (NotDetected) Lyme Disease IgG Ab Negative (Negative) Lyme Disease IgM Ab Negative (Negative) C. pneumoniae DNA (PCR) Not Detected (NotDetected) Coronavirus OC43 (PCR) Not Detected (NotDetected) Coronavirus HKU1 (PCR) Not Detected (NotDetected) Coronavirus 229E (PCR) Not Detected (NotDetected) SARS-CoV-2 (PCR) Not Detected (NotDetected) Coronavirus NL63 (PCR) Not Detected (NotDetected) Human Metapneumovir PCR Not Detected (NotDetected) Influenza Type A (PCR) Not Detected (NotDetected) Influenza Type B (PCR) Not Detected (NotDetected) M. pneumoniae (PCR) Not Detected (NotDetected) Parainfluenza 1 (PCR) Not Detected (NotDetected) Parainfluenza 2 (PCR) Not Detected (NotDetected) Parainfluenza 3 (PCR) Not Detected (NotDetected) Parainfluenza 4 (PCR) Not Detected (NotDetected) RSV (PCR) Not Detected (NotDetected) Entero/Rhino (PCR) Not Detected (NotDetected) Blood Type O Positive Antibody Screen NEGATIVE Crossmatch See Detail 06/19/22 Range/Units 14:36 WBC (4.8-10.8) K/ul RBC (4.70-6.10) M/uL Hgb (14.0-18.0) g/dl Hct (42.0-52.0) % MCV (80.0-100.0) fL MCH (25.0-34.0) pg MCHC (32.0-36.0) g/dL RDW Std Deviation (36.4-46.3) fL RDW Coeff of Augustina (11.5-14.5) % Plt Count (130-400) K/uL MPV (9.4-12.4) fL Immature Gran % (Auto) % Neut % (Auto) % Lymph % (Auto) % [place] % (Auto) % Eos % (Auto) % Baso % (Auto) % Reticulocyte % (Auto) (0.5-2.0) % Neut # (Auto) (1.40-6.50) K/uL Lymph # (Auto) (1.2-3.4) K/uL [place] # (Auto) (0.11-0.59) K/uL Eos # (Auto) (0-0.50) K/uL Baso # (Auto) (0-0.2) K/uL Reticulocyte # (0.02-0.10) 10^6/uL Immature Gran # (Auto) (0.01-0.20) K/uL Polychromasia Echinocytes Immature Retic Fraction (2.3-15.9) % Retic Hgb Content (28.2-36.6) pg PT (9.0-12.0) Seconds INR (0.9-1.1) APTT (21.0-31.0) Seconds PTT Ratio VBG pH 7.22 L (7.36-7.41) VBG pCO2 32 L (38-50) mmHg VBG pO2 45 mmHg VBG HCO3 13 mmol/L VBG O2 Saturation 78.5 % VBG Base Excess -13.4 mEq/L Sodium (136-145) mmol/L Potassium (3.5-5.1) mmol/L Chloride (98-107) mmol/L Carbon Dioxide (21-32) mmol/L Anion Gap (3-11) BUN (6-23) mg/dl Creatinine (0.6-1.4) mg/dl Est Cr Clr Drug Dosing Est GFR ( Amer) ml/min Est GFR (Non-Af Amer) ml/min BUN/Creatinine Ratio (10-20) Glucose (70-99(Fasting)) mg/dl Lactate (0.4-2.0) mmol/L Calcium (8.6-10.3) mg/dl Phosphorus (2.5-4.9) mg/dl Magnesium (1.7-2.4) mg/dl Iron (35-175) mcg/dl Unsaturated IBC (155-355) mcg/dl Transferrin (200-360) mg/dl Ferritin (8-388) ng/ml Total Bilirubin (0.2-1.0) mg/dl AST (13-39) U/L ALT (7-52) U/L Alkaline Phosphatase (34-104) U/L Troponin I High Sens (0-20) pg/ml Total Protein (6.0-8.3) gm/dl Albumin (3.4-5.0) gm/dl Globulin (2.5-4.0) gm/dl Albumin/Globulin Ratio (0.9-2) Lipase (11-82) U/L Vitamin B12 (180-914) pg/ml Procalcitonin (0-0.5) ng/ml Adenovirus (PCR) (NotDetected) B. pertussis DNA (PCR) (NotDetected) B.parapertussis DNA PCR (NotDetected) Lyme Disease IgG Ab (Negative) Lyme Disease IgM Ab (Negative) C. pneumoniae DNA (PCR) (NotDetected) Coronavirus OC43 (PCR) (NotDetected) Coronavirus HKU1 (PCR) (NotDetected) Coronavirus 229E (PCR) (NotDetected) SARS-CoV-2 (PCR) (NotDetected) Coronavirus NL63 (PCR) (NotDetected) Human Metapneumovir PCR (NotDetected) Influenza Type A (PCR) (NotDetected) Influenza Type B (PCR) (NotDetected) M. pneumoniae (PCR) (NotDetected) Parainfluenza 1 (PCR) (NotDetected) Parainfluenza 2 (PCR) (NotDetected) Parainfluenza 3 (PCR) (NotDetected) Parainfluenza 4 (PCR) (NotDetected) RSV (PCR) (NotDetected) Entero/Rhino (PCR) (NotDetected) Blood Type Antibody Screen Crossmatch Administered Medications Discontinued Medications Alprazolam (Alprazolam 0.5 Mg Tablet) 1 mg PO AMHS MAIA Stop: 07/19/22 20:59 Last Admin: 06/20/22 08:17 Dose: 1 mg Documented By: Admin: 06/19/22 21:53 Dose: 1 mg Documented By: SABINE Amlodipine Besylate (Amlodipine Besylate 5 Mg Tab) 10 mg PO DAILY MAIA Stop: 07/20/22 08:59 Last Admin: 06/20/22 08:13 Dose: 10 mg Documented By: RDL Aspirin (Aspirin 81 Mg Ectab) 81 mg PO DAILY MAIA Stop: 07/20/22 08:59 Last Admin: 06/20/22 08:13 Dose: 81 mg Documented By: RDL Atropine Sulfate (Atropine Sulfate 1% Op Soln 5 Ml Btl) 4 drops SL Q4H MAIA Stop: 07/19/22 16:44 Last Admin: 06/20/22 13:16 Dose: 4 drops Documented By: Admin: 06/20/22 08:14 Dose: 4 drops Documented By: Admin: 06/20/22 04:31 Dose: 4 drops Documented By: Admin: 06/20/22 01:14 Dose: Not Given Documented By: Admin: 06/19/22 21:57 Dose: 4 drops Documented By: Admin: 06/19/22 17:22 Dose: 4 drops 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 Buspirone HCl (Buspirone 7.5 Mg Tab) 22.5 mg PO BID MAIA Stop: 07/19/22 20:59 Last Admin: 06/20/22 09:30 Dose: 22.5 mg Documented By: Admin: 06/19/22 21:53 Dose: 22.5 mg Documented By: SABINE Clonidine HCl (Clonidine Hcl 0.1 Mg Tab) 0.1 mg PO TID MAIA Stop: 07/19/22 20:59 Last Admin: 06/20/22 13:15 Dose: 0.1 mg Documented By: Admin: 06/20/22 08:12 Dose: 0.1 mg Documented By: Admin: 06/19/22 21:53 Dose: 0.1 mg Documented By: SABINE Cyanocobalamin (Cyanocobalamin (B-12) 500 Mcg Tablet) 1,000 mcg PO QAM MAIA Stop: 07/20/22 08:59 Last Admin: 06/20/22 08:13 Dose: Not Given Documented By: GIGI Famotidine (Famotidine 10 Mg Tablet) 10 mg PO DAILY MAIA Stop: 07/20/22 08:59 Last Admin: 06/20/22 08:13 Dose: 10 mg Documented By: GIGI Fluticasone Propionate (Fluticasone Propionate Na Spr 16 Gm Btl) 2 sprays NA DAILY MAIA Stop: 07/20/22 08:59 Last Admin: 06/20/22 08:14 Dose: 2 sprays Documented By: GIGI Furosemide (Furosemide 80 Mg Tab) 80 mg PO QDL MAIA Stop: 07/20/22 11:29 Last Admin: 06/20/22 13:16 Dose: 80 mg Documented By: GIGI Furosemide (Furosemide 80 Mg Tab) 160 mg PO QAM MAIA Stop: 07/20/22 08:59 Last Admin: 06/20/22 08:13 Dose: 160 mg Documented By: GIGI Hydralazine HCl (Hydralazine Tab 50 Mg Tab) 100 mg PO TID MAIA Stop: 07/19/22 20:59 Last Admin: 06/20/22 13:16 Dose: 100 mg Documented By: Admin: 06/20/22 08:13 Dose: 100 mg Documented By: Admin: 06/19/22 21:53 Dose: 100 mg Documented By: SABINE Sodium Chloride (Nss) 500 mls @ 80 mls/hr IV .[id number] MAIA Stop: 07/19/22 11:29 Last Infusion: 06/19/22 20:48 Dose: 0 mls/hr Documented By: Admin: 06/19/22 18:10 Dose: 80 mls/hr 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 Infusion: 06/19/22 18:09 Dose: 0 mls/hr Documented By: Admin: 06/19/22 11:49 Dose: 80 mls/hr Documented By: LILIYA Cefepime HCl 1,000 mg/ Syringe 10 mls @ 5 mls/min IV NOW STA; Protocol Stop: 06/19/22 14:22 Last Admin: 06/19/22 17:05 Dose: Not Given 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 Metoprolol Succinate (Metoprolol Succ 50mg Ext Rel Tab) 75 mg PO DAILY MAIA Stop: 07/20/22 08:59 Last Admin: 06/20/22 08:12 Dose: 75 mg Documented By: GIGI Mirtazapine (Mirtazapine Soltab 15 Mg) 45 mg PO HS MAIA Stop: 07/19/22 20:59 Last Admin: 06/19/22 21:53 Dose: 45 mg Documented By: SABINE Multivitamins (Multivitamin Tab) 1 tab PO DAILY MAIA Stop: 07/20/22 08:59 Last Admin: 06/20/22 08:13 Dose: 1 tab Documented By: GIGI Oxycodone HCl (Oxycodone Hcl Soln 5 Mg/5 Ml Udc) 5 mg PO Q4H PRN PRN Reason: Pain/air hunger Stop: 07/03/22 16:30 Last Admin: 06/20/22 01:21 Dose: 5 mg Documented By: Admin: 06/19/22 19:48 Dose: 5 mg 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 Potassium Chloride (Potassium Chloride Crtab 20 Meq Tabcr) 20 meq PO DAILY MAIA Stop: 07/20/22 08:59 Last Admin: 06/20/22 08:12 Dose: 20 meq Documented By: GIGI Senna/Docusate Sodium (Docusate Sodium/Senna 50/8.6mg Tab) 1 tab PO DAILY MAIA Stop: 07/20/22 08:59 Last Admin: 06/20/22 08:13 Dose: 1 tab Documented By: MAMIEL Terazosin HCl (Terazosin Hcl 5 Mg Cap) 20 mg PO HS MAIA Stop: 07/19/22 20:59 Last Admin: 06/19/22 21:53 Dose: 20 mg Documented By: SABINE Vitamin D (Cholecalciferol 1,000 Units 25 Mcg Tab) 1,000 units PO DAILY MAIA Stop: 07/20/22 08:59 Last Admin: 06/20/22 08:13 Dose: 1,000 units Documented By: GIGI Imaging Data Radiologist's Impression: Abdomen/Pelvis CT 06/19/22 12:56 CT SCAN OF THE ABDOMEN AND PELVIS WITHOUT IV CONTRAST CLINICAL HISTORY: Generalized abdominal pain. COMPARISON STUDY: Abdominal CT dated 06/11/2006. TECHNIQUE: CT scan of the abdomen and pelvis is performed from the lung bases to the proximal femora. Images are reviewed in the axial, sagittal, and coronal planes. IV contrast was not administered for this examination. Note that the examination is suboptimal without oral and IV contrast. A dose lowering technique was utilized adhering to the principles of ALARA. CT DOSE: 935.10 mGy.cm FINDINGS: Lung bases: The heart is enlarged nodes in a moderate to large pericardial effusion. The pericardium is mildly thickened. Emphysematous change is seen at the lung bases. There are scattered calcified granulomas. There are small pleural effusions with dependent consolidation. A moderate hiatal hernia is observed. Liver: The unenhanced liver is cirrhotic morphology and heterogeneous in attenuation. There is nodularity of the hepatic surface contour. There is minimal central intrahepatic biliary ductal dilatation. Gallbladder: Surgically absent noting clips in the gallbladder fossa. Spleen: Normal in size and attenuation. There are calcified splenic granulomas. Pancreas: The unenhanced pancreas is moderately atrophic and grossly unremarkable. Adrenal glands: Bilateral adrenal adenomas measure up to 1.7 cm. Kidneys: The unenhanced kidneys are atrophic and without hydronephrosis. There are no renal calculi identified. Bilateral renal cysts measuring up to 4.6 cm. Abdominal vasculature: There is moderate to advanced atherosclerotic calcification and mild ectasia of the abdominal aorta. Bowel: There is moderate colonic diverticulosis without CT evidence of acute diverticulitis. No bowel obstruction is seen. There is mild to moderate colonic fecal retention. A small duodenal diverticulum is incidentally noted. The appendix is well-visualized and normal. Question mild wall thickening versus underdistention of the right colon. Peritoneum: There is trace perihepatic ascites. No intraperitoneal free air is seen. Lymphadenopathy: None. Pelvic viscera: The prostate gland is enlarged and heterogeneous. There is mild surrounding infiltration. The bladder is distended, and the wall appears thicken ed/trabeculated indicating chronic outlet obstruction. Skeletal structures: The skeletal structures are osteopenic. There is moderate lumbosacral spondylosis. Sclerotic change is noted in the sacroiliac joints. No lytic or blastic lesions are seen. IMPRESSION: 1. Cardiomegaly noting a moderate to large pericardial effusion. There is mild pericardial thickening. Correlate clinically for evidence of pericarditis. If warranted this could be further assessed with echocardiography. 2. Small pleural effusions with dependent consolidation. 3. The liver shows morphologic change of cirrhosis. 4. The prostate gland is enlarged with mild surrounding infiltration. Correlate with clinical findings and urinalysis for evidence of prostatitis. 5. Question wall thickening versus underdistention of the right colon. Correlate clinically for signs of a nonspecific colitis. 6. Colonic diverticulosis without clear CT evidence of acute diverticulitis. 7. Trace perihepatic ascites. 8. Additional findings as above. ACT 112: Negative or not required by law. Electronically signed by: Ronal Leon M.D. 06/19/2022 2:[address] 06/19/22 12:56 CT chest diagnostic wo con CLINICAL HISTORY: 87 years-old Male with chest/abd back pain. Acute chest and abdominal pain TECHNIQUE: Multiaxial CT images of the chest were performed without contrast. A dose lowering technique was utilized adhering to the principles of ALARA. COMPARISON: CT abdomen and pelvis of same day, chest CT 06/15/2006 FINDINGS: Unremarkable thyroid. Moderate to large sized pericardial effusion measures up to 2.5 cm with equivocal pericardial thickening. Decreased attenuation of the cardiac blood pool suggests anemia. Moderate cardiomegaly with moderate coronary artery calcifications. Atherosclerosis of the thoracic aorta without aneurysm. Calcified hilar lymph nodes. Small right with small to moderate left pleural effusions. Moderate pulmonary emphysema. No pneumothorax. Mild intralobular septal thickening with subsegmental dependent bibasilar atelectasis. There are a few calcified granulomata noted within the left lower lobe. The central airways are patent. Small hiatal hernia. Partially imaged probable cyst in the superior poles of the kidneys. Mild nodular thickening of the adrenal glands. Unremarkable soft tissues with mild generalized body wall edema. No acute fracture identified. IMPRESSION: 1. Moderate cardiomegaly with mild pulmonary edema, small right and [id number] left pleural effusions. 2. Moderate to large pericardial effusion with equivocal pericardial thickening. Correlate clinically to exclude pericarditis. 3. Mild bibasilar consolidation suggestive of compressive atelectasis. 4. Please refer to the CT abdomen and pelvis study of same day for additional findings. ACT 112: Negative or not required by law. Electronically signed by: Juan Gomez M.D. 06/19/2022 2:29 PM Discharge Plan Visit Data Chief Complaint: Confusion Stated Complaint: UNSTEADY ON FEET, DISORIENTED ED Provider: Vignesh Figueroa Discharge Problem: Acute on chronic renal failure, Metabolic acidosis, Anemia, Weakness, Chronic diastolic heart failure due to valvular disease Patient Disposition: Admitted As Inpatient Discharge Instructions Interventions: ED Discharge Assessment Last Done: 06/19/22 15:21
[2022-06-19 15:49] LABS: Bacteria Urine Negative (Negative); Epithelial Cell Urine 0-5 /lpf (0-5); Hyaline Casts Urine 0-5 /lpf (0-5); RBC Urine 0-4 /hpf (0-4); WBC Urine 0-5 /hpf (0-5)
[2022-06-19 15:56] LABS: Ferritin 277.9 ng/ml (8-388)
[2022-06-19] MEDS ORDERED: ACETAMINOPHEN 500 MG TAB PO PRN (16:54)
[2022-06-19] MEDS: ATROPINE SULFATE 1% OP SOLN 5 ML BTL SL SCH ×2 (17:22→21:57)
[2022-06-19] MEDS: oxyCODONE HCL SOLN 5 MG/5 ML UDC PO PRN (19:48)
[2022-06-19] MEDS ORDERED: MIRTAZAPINE SOLTAB 15 MG PO SCH (21:00)
[2022-06-19] MEDS ORDERED: TERAZOSIN HCL 5 MG CAP PO SCH (21:00)
[2022-06-19] MEDS: busPIRone 7.5 MG TAB PO SCH (21:53)
[2022-06-19] MEDS: cloNIDine HCL 0.1 MG TAB PO SCH (21:53)
[2022-06-19] MEDS: hydrALAZINE TAB 50 MG TAB PO SCH (21:53)
[2022-06-19] MEDS: ALPRAZolam 0.5 MG TABLET PO SCH (21:53)
[2022-06-20] MEDS: ATROPINE SULFATE 1% OP SOLN 5 ML BTL SL SCH ×4 (01:14→13:16)
[2022-06-20] MEDS: oxyCODONE HCL SOLN 5 MG/5 ML UDC PO PRN (01:21)
[2022-06-20] MEDS: cloNIDine HCL 0.1 MG TAB PO SCH ×2 (08:12→13:15)
[2022-06-20] MEDS: hydrALAZINE TAB 50 MG TAB PO SCH ×2 (08:13→13:16)
[2022-06-20] MEDS: ALPRAZolam 0.5 MG TABLET PO SCH (08:17)
[2022-06-20] MEDS ORDERED: POTASSIUM CHLORIDE CRTAB 20 MEQ TABCR PO SCH (09:00)
[2022-06-20] MEDS ORDERED: FLUTICASONE PROPIONATE NA SPR 16 GM BTL SCH (09:00)
[2022-06-20] MEDS ORDERED: CYANOCOBALAMIN (B-12) 500 MCG TABLET PO SCH (09:00)
[2022-06-20] MEDS ORDERED: METOPROLOL SUCC 50MG EXT REL TAB PO SCH (09:00)
[2022-06-20] MEDS ORDERED: CHOLECALCIFEROL 1,000 UNITS 25 MCG TAB PO SCH (09:00)
[2022-06-20] MEDS ORDERED: FUROSEMIDE 80 MG TAB PO SCH ×2 (09:00→11:30)
[2022-06-20] MEDS ORDERED: FAMOTIDINE 10 MG TABLET PO SCH (09:00)
[2022-06-20] MEDS ORDERED: MULTIVITAMIN TAB PO SCH (09:00)
[2022-06-20] MEDS ORDERED: ASPIRIN 81 MG ECTAB PO SCH (09:00)
[2022-06-20] MEDS ORDERED: amLODIPine BESYLATE 5 MG TAB PO SCH (09:00)
[2022-06-20] MEDS ORDERED: DOCUSATE SODIUM/SENNA 50/8.6MG TAB PO SCH (09:00)
[2022-06-20] MEDS: busPIRone 7.5 MG TAB PO SCH (09:30)
--- NOTE | 2022-06-20 15:37 | Discharge Summary ---
Date of Service June 20, 2022 Admission HPI Per Admitting Provider Mr. Matias is an 87-year-old male that presented to the ED with accompanied by his family with complaints of weakness. Patient has a complex medical history that includes end-stage renal disease without dialysis, chronic diastolic congestive heart failure, anemia of chronic disease, HTN, history of GI bleed, BPH, and anxiety and depression. Numerous conversations have been held with the patient, nephrology and his family indicating the recommendation to pursue hemodialysis however patient has consistently declined pursuing hemodialysis. Patient was admitted October 2021 for chronic anemia requiring blood transfusion. Today hemoglobin 7.3 with baseline hemoglobin approximately 9-9.6 as outpatient. While patient does continue to decline pursuing dialysis he has up until this point been receptive to blood transfusions and iron infusions with his last Fe+ infusion being 06/15/2022. In the ED chest x-ray revealed cardiomegaly with pulmonary vascular congestion and emphysema with chronic interstitial coarsening along with small pleural effusions. Chest CT indicated mild pulmonary edema with small right and small to moderate left pleural effusions with moderate to large pericardial effusion. Patient has uncompensated metabolic acidosis pH 7.22, CO2 33, HCO3 13. Last echocardiogram 2020 with an EF 55%. Patient has been consulted with cardiology and nephrology with conservative medicinal management however appears to be reaching the maximum dosing of these medications. Review of outpatient chart conversation with patient's PCP there has been conversation about him avoiding inpatient hospitalizations and the patient has indicated that he is no longer interested in going to doctor appointments and has full understanding that he has a life-threatening condition and is understanding that he would without continue treatment. Patient has been a documented DNR/DNI. Pt is sitting upright in his hospital bed and able to speak in complete sentences but is using accessory muscles for breathing. He denies pain. Pt denies headache, dizziness, visual or auditory changes, abdominal pain, urinary changes, recent falls or trauma. He states that he is urinating daily and has a current Coppola catheter and that is producing clear yellow urine. Lengthy conversation held between patient, myself, 3 adult children, and one of the adult children significant others. We reviewed the patient's progression with his advanced kidney failure over the past 6 months along with how pursuing iron and blood transfusions has affected his quality of life. We reviewed his chest CT and chest x-ray and all of his lab work. We discussed in detail how the body compensates when organs start to fail and noted the challenge with administering blood with progressive pleural and pericardial effusions. I explained pulmonary edema with worsening kidney failure. Patient was adamant that he did not want to pursue hemodialysis and wishes to return home. We discussed hospice in detail including symptom management and focusing on quality of life. Patient indicated he is not fearful of dying and is "ready to go". He states that he does not wish for further specialist evaluation including nephrology or cardiology. We discussed hospice in detail with the logistics of transitioning home with hospice. 2 sons are visiting from [place] for the next 2 weeks and a daughter is local and between the 3 of them can provide / care. We did discuss ESRD end-of-life and what symptom management typically looks like. We discussed metabolic encephalopathy symptoms and shortness of breath that can be relieved with medications. For now patient and his family have decided to pursue hospice at home with [facility] hospice as their agency of choice. We discussed symptom management medications including Roxicodone as patient has advanced renal disease and we would want to avoid opioid toxicity. We also discussed terminal secretions to ensure family was aware of this anticipated and expected and normal symptom at end of life. Patient lives in a second floor access home but once inside bathroom and all living areas are on the same level. Patient does not require a hospital bed at this time but does wish to have a bedside commode and shower chair. ED case management aware of the above and will initiate process for transition to hospice. Should patient decline during the interim we will make a full comfort measures transition with discontinuation of current medications. For now, okay to continue with current medications however omit blood work and further diagnostic imaging or specialist consultation. Hospice Diagnosis: ESRD. Will consult palliative medicine purely for continuation of symptom management needs until he can be transitioned home with hospice. Hospice order script provided to ED CM. Patient will be admitted for until transition home with hospice is fully arranged. Please see A/P for further details. Admission Exam Per Admitting Provider Neuro: AAOx4, PERRLA, no aphagia, memory changes, CNII-XII grossly intact HEENT: head normocephalic, moist mucus membranes CV: S1/S2, (-) M/G/R, (-) edema, cap refill < 3 seconds Resp: Lungs CTA in all blood. On RA - placing on supplemental O2. GI: Abdomen large S/NT/ND, Ax4 bowel sounds, (-) CVA tenderness Musculoskeletal: 4/5 B/L UE strength, 3/5 B/L LE strength. No gait disturbance Skin: (-) rashes , (-) erythema. Psych: euthymic mood Principal Diagnosis End-stage renal disease, acute on chronic anemia, chronic diastolic heart failure with bilateral heart disease, severe aortic valve stenosis, hypertension Discharge Exam General: Sitting comfortably in bed on NC, not in acute distress HEENT: EOMI, PETEY, MMM Chest: Clear breath sounds bilaterally, no wheezes or crackles CVS: Regular rate and rhythm, normal heart sounds, no murmur Abdomen: Soft, non tender, not distended, normal bowel sounds Neuro: Awake, alert, conversing well Extremities: 3+ pitting edema Discharge Data Allergies Allergy/AdvReac Type Severity Reaction Status Date / Time No Known Allergies Allergy Unknown Verified 10/27/21 10:39 Consultations 06/19/22 14:55 ED Decision to Admit Stat Ordered Studies 06/19/22 11:30 CT head/brain wo con Stat 06/19/22 12:56 CT abd pelvis wo con Stat CT chest diagnostic wo con Stat Laboratory Results WBC 12.12 K/ul (4.8-10.8) H 06/19/22 11:27 RBC 2.36 M/uL (4.70-6.10) L 06/19/22 11:27 Hgb 7.3 g/dl (14.0-18.0) L 06/19/22 11:27 Hct 22.9 % (42.0-52.0) L 06/19/22 11:27 MCV 97.0 fL (80.0-100.0) 06/19/22 11:27 MCH 30.9 pg (25.0-34.0) 06/19/22 11: MCHC 31.9 g/dL (32.0-36.0) L 06/19/22 11:27 RDW Std Deviation 63.8 fL (36.4-46.3) H 06/19/22 11:27 RDW Coeff of Augustina 18.3 % (11.5-14.5) H 06/19/22 11:27 Plt Count 326 K/uL (130-400) 06/19/22 11: MPV 11.2 fL (9.4-12.4) 06/19/22 11: Immature Gran % (Auto) 0.7 % 06/19/22 11: Neut % (Auto) 89.1 % 06/19/22 11: Lymph % (Auto) 3.5 % 06/19/22 11: Kay % (Auto) 6.3 % 06/19/22 11: Eos % (Auto) 0.2 % 06/19/22 11: Baso % (Auto) 0.2 % 06/19/22 11: Reticulocyte % (Auto) 3.2 % (0.5-2.0) H 06/19/22 11: Neut # (Auto) 10.79 K/uL (1.40-6.50) H 06/19/22 11: Lymph # (Auto) 0.43 K/uL (1.2-3.4) L 06/19/22 11: Kay # (Auto) 0.76 K/uL (0.11-0.59) H 06/19/22 11: Eos # (Auto) 0.03 K/uL (0-0.50) 06/19/22 11: Baso # (Auto) 0.02 K/uL (0-0.2) 06/19/22 11: Reticulocyte # 0.08 10^6/uL (0.02-0.10) 06/19/22 11: Immature Gran # (Auto) 0.09 K/uL (0.01-0.20) 06/19/22 11: Polychromasia 1+ 06/19/22 11: Echinocytes 1+ 06/19/22 11: Immature Retic Fraction 23.6 % (2.3-15.9) H 06/19/22 11: Retic Hgb Content 29.9 pg (28.2-36.6) 06/19/22 11: PT 11.2 Seconds (9.0-12.0) 06/19/22 11: INR 1.1 (0.9-1.1) 06/19/22 11: APTT 31.3 Seconds (21.0-31.0) H 06/19/22 11:27 PTT Ratio 1.1 06/19/22 11:27 VBG pH 7.22 (7.36-7.41) L 06/19/22 14:36 VBG pCO2 32 mmHg (38-50) L 06/19/22 14:36 VBG pO2 45 mmHg 06/19/22 14:36 VBG HCO3 13 mmol/L 06/19/22 14:36 VBG O2 Saturation 78.5 % 06/19/22 14:36 VBG Base Excess -13.4 mEq/L 06/19/22 14:36 Sodium 130 mmol/L (136-145) L 06/19/22 11:27 Potassium 3.7 mmol/L (3.5-5.1) 06/19/22 11:27 Chloride 101 mmol/L (98-107) 06/19/22 11:27 Carbon Dioxide 12 mmol/L (21-32) L 06/19/22 11:27 Anion Gap 17 (3-11) H 06/19/22 11:27 BUN 134 mg/dl (6-23) H 06/19/22 11:27 Creatinine 8.89 mg/dl (0.6-1.4) H* 06/19/22 11:27 Est Cr Clr Drug Dosing Not Reportable 06/19/22 11:27 Est GFR ( Amer) 5.5 ml/min 06/19/22 11:27 Est GFR (Non-Af Amer) 4.7 ml/min 06/19/22 11:27 BUN/Creatinine Ratio 15.1 (10-20) 06/19/22 11:27 Glucose 120 mg/dl (70-99(Fasting)) H 06/19/22 11:27 Lactate 0.4 mmol/L (0.4-2.0) 06/19/22 05:17 Calcium 8.3 mg/dl (8.6-10.3) L 06/19/22 11:27 Phosphorus 7.4 mg/dl (2.5-4.9) H 06/19/22 11:27 Magnesium 2.3 mg/dl (1.7-2.4) 06/19/22 11:27 Iron 17 mcg/dl (35-175) L 06/19/22 11:27 Unsaturated IBC 212 mcg/dl (155-355) 06/19/22 11:27 Transferrin 181 mg/dl (200-360) L 06/19/22 11:27 Ferritin 277.9 ng/ml (8-388) 06/19/22 11:27 Total Bilirubin 0.3 mg/dl (0.2-1.0) 06/19/22 11:27 AST 9 U/L (13-39) L 06/19/22 11:27 ALT 11 U/L (7-52) 06/19/22 11:27 Alkaline Phosphatase 67 U/L (34-104) 06/19/22 11:27 Troponin I High Sens 48.7 pg/ml (0-20) H 06/19/22 11:27 Total Protein 6.2 gm/dl (6.0-8.3) 06/19/22 11: Albumin 3.4 gm/dl (3.4-5.0) 06/19/22 11: Globulin 2.8 gm/dl (2.5-4.0) 06/19/22 11:27 Albumin/Globulin Ratio 1.2 (0.9-2) 06/19/22 11:27 Lipase 70 U/L (11-82) 06/19/22 11:27 Vitamin B12 > 1500 pg/ml (180-914) H 06/19/22 11:27 Procalcitonin 0.14 ng/ml (0-0.5) 06/19/22 11:27 Urine Color Straw 06/19/22 Unknown Urine Appearance Clear (Clear) 06/19/22 Unknown Urine pH 5.0 (4.5-7.5) 06/19/22 Unknown Ur Specific [place] 1.015 (1.000-1.030) 06/19/22 Unknown Urine Protein 3+ (Negative) H 06/19/22 Unknown Urine Glucose (UA) Negative (Negative) 06/19/22 Unknown Urine Ketones Negative (Negative) 06/19/22 Unknown Urine Blood Negative (Negative) 06/19/22 Unknown Urine Nitrite Negative (Negative) 06/19/22 Unknown Urine Bilirubin Negative (Negative) 06/19/22 Unknown Urine Urobilinogen Negative (Negative) 06/19/22 Unknown Ur Leukocyte Esterase Negative (Negative) 06/19/22 Unknown Urine RBC 0-4 /hpf (0-4) 06/19/22 Unknown Urine WBC 0-5 /hpf (0-5) 06/19/22 Unknown Ur Epithelial Cells 0-5 /lpf (0-5) 06/19/22 Unknown Urine Bacteria Negative (Negative) 06/19/22 Unknown Hyaline Casts 0-5 /lpf (0-5) 06/19/22 Unknown Adenovirus (PCR) Not Detected (NotDetected) 06/19/22 12:15 B. pertussis DNA (PCR) Not Detected (NotDetected) 06/19/22 12:15 B.parapertussis DNA PCR Not Detected (NotDetected) 06/19/22 12:15 Lyme Disease IgG Ab Negative (Negative) 06/19/22 11:27 Lyme Disease IgM Ab Negative (Negative) 06/19/22 11:27 C. pneumoniae DNA (PCR) Not Detected (NotDetected) 06/19/22 12:15 Coronavirus OC43 (PCR) Not Detected (NotDetected) 06/19/22 12:15 Coronavirus HKU1 (PCR) Not Detected (NotDetected) 06/19/22 12:15 Coronavirus 229E (PCR) Not Detected (NotDetected) 06/19/22 12:15 SARS-CoV-2 (PCR) Not Detected (NotDetected) 06/19/22 12:15 Coronavirus NL63 (PCR) Not Detected (NotDetected) 06/19/22 12:15 Human Metapneumovir PCR Not Detected (NotDetected) 06/19/22 12:15 Influenza Type A (PCR) Not Detected (NotDetected) 06/19/22 12:15 Influenza Type B (PCR) Not Detected (NotDetected) 06/19/22 12:15 M. pneumoniae (PCR) Not Detected (NotDetected) 06/19/22 12:15 Parainfluenza 1 (PCR) Not Detected (NotDetected) 06/19/22 12:15 Parainfluenza 2 (PCR) Not Detected (NotDetected) 06/19/22 12:15 Parainfluenza 3 (PCR) Not Detected (NotDetected) 06/19/22 12:15 Parainfluenza 4 (PCR) Not Detected (NotDetected) 06/19/22 12:15 RSV (PCR) Not Detected (NotDetected) 06/19/22 12:15 Entero/Rhino (PCR) Not Detected (NotDetected) 06/19/22 12:15 Blood Type O Positive 06/19/22 14:35 Antibody Screen NEGATIVE 06/19/22 14:35 Crossmatch See Detail 06/19/22 14:35 Impressions Chest X-Ray 06/19/22 10:34 XR chest 1V not portable HISTORY: 87 years-old Male Sepsis acute sepsis COMPARISON: 10/27/2021 TECHNIQUE: AP view of the chest FINDINGS: Cardiac silhouette is enlarged. Pulmonary vascular congestion. Tortuosity of the thoracic aorta. No pneumothorax, large pleural effusion or lobar airspace consolidation. Small pleural effusions with mild bibasilar densities. Degenerative changes of the shoulders and spine. Pulmonary emphysema with chronic interstitial coarsening. IMPRESSION: 1. Cardiomegaly with pulmonary vascular congestion. 2. Emphysema with chronic interstitial coarsening. 3. Small pleural effusions with mild bibasilar densities favoring atelectasis. ACT 112: Negative or not required by law. The above report was generated using voice recognition software. It may contain grammatical, syntax or spelling errors. Electronically signed by: Juan Gomez M.D. 06/19/2022 11:[address] 06/19/22 11:30 CT SCAN OF THE BRAIN WITHOUT IV CONTRAST CLINICAL HISTORY: Dizziness. Change in mental status. COMPARISON STUDY: CT of the brain dated 06/05/2006. TECHNIQUE: Unenhanced axial CT scan of the brain is performed from the vertex to the skull base. A dose lowering technique was utilized adhering to the principles of ALARA. CT DOSE: 537.48 mGy.cm FINDINGS: Brain parenchyma: There is age-related involutional change noting mild to moderate subcortical and periventricular microangiopathic disease. There is no hemorrhage, mass effect, or evidence of acute territorial ischemia by CT criteria. Liu-white matter differentiation is preserved. No extra-axial fluid collection is seen. 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 Ventricles, sulci, cisterns: Prominent secondary to involutional change. Intracranial vasculature: There is atherosclerotic calcification of the cavernous carotid and vertebral arteries. Calvarium: Unremarkable. Sinuses and mastoids: There is evidence of previous paranasal sinus surgery. The visualized paranasal sinuses are clear. There are trace mastoid effusions. Orbits: The bony orbits are grossly intact. There are bilateral ocular lens implants. IMPRESSION: There is no hemorrhage, mass effect, or evidence of acute territorial ischemia by CT criteria. ACT 112: Negative or not required by law. Electronically signed by: Ronal Leon M.D. 06/19/2022 11:58 AM Abdomen/Pelvis CT 06/19/22 12:56 CT SCAN OF THE ABDOMEN AND PELVIS WITHOUT IV CONTRAST CLINICAL HISTORY: Generalized abdominal pain. COMPARISON STUDY: Abdominal CT dated 06/11/2006. TECHNIQUE: CT scan of the abdomen and pelvis is performed from the lung bases to the proximal femora. Images are reviewed in the axial, sagittal, and coronal planes. IV contrast was not administered for this examination. Note that the examination is suboptimal without oral and IV contrast. A dose lowering sebastian hnique was utilized adhering to the principles of ALARA. CT DOSE: 935.10 mGy.cm FINDINGS: Lung bases: The heart is enlarged nodes in a moderate to large pericardial effusion. The pericardium is mildly thickened. Emphysematous change is seen at the lung bases. There are scattered calcified granulomas. There are small pleural effusions with dependent consolidation. A moderate hiatal hernia is observed. Liver: The unenhanced liver is cirrhotic morphology and heterogeneous in attenuation. There is nodularity of the hepatic surface contour. There is minimal central intrahepatic biliary ductal dilatation. Gallbladder: Surgically absent noting clips in the gallbladder fossa. Spleen: Normal in size and attenuation. There are calcified splenic granulomas. Pancreas: The unenhanced pancreas is moderately atrophic and grossly unremarkable. Adrenal glands: Bilateral adrenal adenomas measure up to 1.7 cm. Kidneys: The unenhanced kidneys are atrophic and without hydronephrosis. There are no renal calculi identified. Bilateral renal cysts measuring up to 4.6 cm. Abdominal vasculature: There is moderate to advanced atherosclerotic calcification and mild ectasia of the abdominal aorta. Bowel: There is moderate colonic diverticulosis without CT evidence of acute diverticulitis. No bowel obstruction is seen. There is mild to moderate colonic fecal retention. A small duodenal diverticulum is incidentally noted. The appendix is well-visualized and normal. Question mild wall thickening versus underdistention of the right colon. Peritoneum: There is trace perihepatic ascites. No intraperitoneal free air is seen. Lymphadenopathy: None. Pelvic viscera: The prostate gland is enlarged and heterogeneous. There is mild surrounding infiltration. The bladder is distended, and the wall appears thickened/trabeculated indicating chronic outlet obstruction. Skeletal structures: The skeletal structures are osteopenic. There is moderate lumbosacral spondylosis. Sclerotic change is noted in the sacroiliac joints. No lytic or blastic lesions are seen. IMPRESSION: 1. Cardiomegaly noting a moderate to large pericardial effusion. There is mild pericardial thickening. Correlate clinically for evidence of pericarditis. If warranted this could be further assessed with echocardiography. 2. Small pleural effusions with dependent consolidation. 3. The liver shows morphologic change of cirrhosis. 4. The prostate gland is enlarged with mild surrounding infiltration. Correlate with clinical findings and urinalysis for evidence of prostatitis. 5. Question wall thickening versus underdistention of the right colon. Correlate clinically for signs of a nonspecific colitis. 6. Colonic diverticulosis without clear CT evidence of acute diverticulitis. 7. Trace perihepatic ascites. 8. Additional findings as above. ACT 112: Negative or not required by law. Electronically signed by: Ronal Leon M.D. 06/19/2022 2:[address] 06/19/22 12:56 CT chest diagnostic wo con CLINICAL HISTORY: 87 years-old Male with chest/abd back pain. Acute chest and abdominal pain TECHNIQUE: Multiaxial CT images of the chest were performed without contrast. A dose lowering technique was utilized adhering to the principles of ALARA. COMPARISON: CT abdomen and pelvis of same day, chest CT 06/15/2006 FINDINGS: Unremarkable thyroid. Moderate to large sized pericardial effusion measures up to 2.5 cm with equivocal pericardial thickening. Decreased attenuation of the cardiac blood pool suggests anemia. Moderate cardiomegaly with moderate coronary artery calcifications. Atherosclerosis of the thoracic aorta without aneurysm. Calcified hilar lymph nodes. Small right with small to moderate left pleural effusions. Moderate pulmonary emphysema. No pneumothorax. Mild intralobular septal thickening with subsegmental dependent bibasilar atelectasis. There are a few calcified granulomata noted within the left lower lobe. The central airways are patent. Small hiatal hernia. Partially imaged probable cyst in the superior poles of the kidneys. Mild nodular thickening of the adrenal glands. Unremarkable soft tissues with mild generalized body wall edema. No acute fracture identified. IMPRESSION: 1. Moderate cardiomegaly with mild pulmonary edema, small right and [id number]-[id number] left pleural effusions. 2. Moderate to large pericardial effusion with equivocal pericardial thickening. Correlate clinically to exclude pericarditis. 3. Mild bibasilar consolidation suggestive of compressive atelectasis. 4. Please refer to the CT abdomen and pelvis study of same day for additional findings. ACT 112: Negative or not required by law. Electronically signed by: Juan Gomez M.D. 06/19/2022 2:29 PM Hospital Course (1) ESRD (end stage renal disease): (2) Acute on chronic anemia: (3) Weakness: (4) Chronic diastolic heart failure due to valvular disease: (5) Severe aortic valve stenosis: (6) HTN (hypertension): (7) BPH (benign prostatic hyperplasia): (8) Comfort measures only status: Plan 87 y/o with ESRD not interested in Dialysis presented to ED yesterday for weakness, labored breathing, confusion and unsteadiness. She was seen by hospitalist service. After initial discussion, plan was to transition to home hospice and was admitted for logistics arrangement. Patient was seen and examined today at bedside in presence of family. He is comfortable. Oxy and atropine drops were prescribed which he has been getting here. He and family denies any other needs at discharge. Home hospice with [facility] was arranged. He is comfortable for discharge home. transitioning home with Hospice. Admit until logistically arranged. Palliative to continue with symptom management. Total Time Total Time Spent Total Time Spent (In Minutes): 32 Discharge Plan Discharge Items Patient Disposition: Hospice - Home Reason For Visit: WEAKNESS Discharge Diagnosis: ESRD not on dialysis, HTN, CHF, comfort measure only status Activity: Resume your previous activity Non-emergency contact: Primary Care Provider Call non-emergency contact if: you have any medication questions, your symptoms worsen and your pain is concerning for you Follow-up/Referrals: Roscoe Sagastume, [Primary Care Provider] - Diet: Dialysis Renal Addtl Attending Provider Instructions: You are going home with home hospice. You can take roxicodone as need for pain and atropine for increased secretions. Hospice agency will manage your medicines further Pending Studies at Discharge: No Stand-Alone Forms: [facility] Medications and DC Order Prescriptions: New atropine 1 % Drops 4 drp sublingual Q4H Qty: 30 0RF oxycodone 5 mg/5 mL solution 5 mg PO Q6H PRN (Reason: pain) Qty: 200 0RF Continued clonidine HCl 0.1 mg tablet 0.1 mg PO TID alprazolam 1 mg tablet 1 mg PO AMHS acetaminophen 500 mg Capsule 1,000 mg PO TID PRN (Reason: Pain) amlodipine [Norvasc] 10 mg Tablet 10 mg PO DAILY buspirone 15 mg Tablet 22.5 mg PO BID famotidine 10 mg Tablet 10 mg PO DAILY fluticasone propionate 50 mcg/actuation [place],Suspension 2 spray INTRANASAL DAILY Rx Instructions: administer into each nostril furosemide [Lasix] 80 mg Tablet 160 mg PO QAM metoprolol succinate 50 mg tablet extended release 24 hr 75 mg PO DAILY Metamucil 3.4 gram/5.4 gram Powder 1 tbsp PO BID Rx Instructions: mix into at least 8 oz of water or juice before administering aspirin 81 mg Tablet,Delayed Release (Dr/Ec) 81 mg PO DAILY cholecalciferol (vitamin D3) 25 mcg (1,000 unit) Capsule 25 mcg PO DAILY multivitamin Tablet 1 tab PO DAILY sennosides-docusate sodium [Senna Plus] 8.6-50 mg Tablet 1 tab-cap PO DAILY cyanocobalamin (vitamin B-12) 1,000 mcg Tablet 1,000 mcg PO QAM potassium chloride 10 mEq Tablet Extended Release 20 meq PO DAILY furosemide 80 mg tablet 80 mg PO QDL mirtazapine 45 mg Tablet 45 mg PO HS terazosin 10 mg capsule 20 mg PO HS hydralazine 50 mg Tablet 100 mg PO TID Qty: 180 0RF Discharge Orders: Discharge Order (Routine); Ordered 06/20/22 Ordered By: Roberto Moe Admission Data Admit Date/Time: 06/19/22 14:50 Attending Provider: Roberto Moe Admit Provider: Anita Cruz Primary Care Provider: Roscoe Sagastume Other Providers: Anita Cruz ; [facility],Home Healthcare Other Interventions: Discharge Summary Assessment (RN) Last Done: 06/20/22 10:42
--- NOTE | 2022-06-21 05:47 | Electrocardiogram Report ---
Test Reason : Blood Pressure : / mmHG Vent. Rate : 078 BPM Atrial Rate : 078 BPM P-R Int : 216 ms QRS Dur : 110 ms QT Int : 408 ms P-R-T Axes : 007 -14 140 degrees QTc Int : 465 ms Sinus rhythm with 1st degree A-V block Left ventricular hypertrophy with repolarization abnormality Abnormal ECG When compared with ECG of 26-OCT-2021 09:37, Premature atrial complexes are no longer Present T wave inversion more evident in Lateral leads Confirmed by Franklin Rivera ([id number]) on 06/21/2022 5:47:50 AM Referred By: REFERRED SELF Confirmed By:Franklin Rivera
== END 2022-06-20 14:52 | disposition hospice, home (50) ==
LOC: ED 10:28 → SUATTDRO 14:50 → EDINP 14:50 → INTOOBSV 14:50 → 3E 15:21